=== PATIENT | male | born 1930 | race Caucasian/White ===

== ENCOUNTER 2016-05-25 09:55 | Emergency (ER) | payer MEDICARE, OTHER, MEDICAID ==
[~2016-05-25] VITALS: Ht 172.7 cm; Wt 72.6 kg
[~2016-05-25 09:55] MED LIST: AMOX-358 PO; ATOR10TA PO; ATOR10TA66 PO; CAPT25TA3; CAPT50TA3 PO; DEXT1DRO7 OU; DIGO125T PO; DILT240C9 PO; DILT240T10 PO; DOCU-143 PO; DONE5TAB30 PO; DONE5TAB8 PO; FLUT12AE2 IH; FLUT12AE2 INH; HYDR-3812 PO; LITH300T PO; LITH300T27 PO; MELA1TAB10 PO; MELA3TAB PO; MELA3TAB52 PO; NITR0.3T SL; NITR0.4T SL; POLY17PO6 PO; PROP10TA8 PO; RANI-514 PO; RANI75TA21 PO; TRAZ150T72 PO; WARF-47 PO; WARF2.5T82 PO; WARF2TAB PO
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
[2016-05-25] MEDS ORDERED: ASPIRIN 81 MG CHEW (CHILDREN'S ASA) PO ONE (10:15)
[2016-05-25 10:58] LABS: BASOPHILS % (AUTO) 0 % (0-10); EOSINOPHILS # (AUTO) 0.2 10^3/uL (0.0-0.3); EOSINOPHILS % (AUTO) 2 % (0-10); LYMPHOCYTES % (AUTO) 12 % (12-44); MEAN CORPUSCULAR HEMOGLOBIN 26 PG (25-34); MEAN CORPUSCULAR HGB CONC 31 G/DL (32-36); MEAN CORPUSCULAR VOLUME 84 FL (80-99); MEAN PLATELET VOLUME 10.5 FL (7.4-10.4); MONOCYTES # (AUTO) 0.5 X 10^3 (0.0-1.0); MONOCYTES % (AUTO) 6 % (0-12); NEUTROPHILS # (AUTO) 6.8 X 10^3 (1.8-7.8); NEUTROPHILS % (AUTO) 80 % (42-75); PLATELET COUNT 224 10^3/uL (130-400); RED BLOOD COUNT 4.98 10^6/uL (4.35-5.85); RED CELL DISTRIBUTION WIDTH 16.5 % (10.0-14.5); WHITE BLOOD COUNT 8.6 10^3/uL (4.3-11.0)
--- NOTE | 2016-05-25 11:09 | ED Chest Pain ---
General Chief Complaint: Chest Pain Stated Complaint: CHEST PAIN Nursing Triage Note: PT ARRIVED PER EMS, PT SENT D/T [facility]GINA, PT CO OF L ELBOW PAIN 7/10 INTERMITTENT. PT STATES DOES HAVE COUGH, PT WAS GIVEN NITRO SL X3 BY SC. PT STATES RECENTLY HAS GOTTEN PACEMAKER Nursing Sepsis Screen: No Definite Risk Source: patient, [place] [facility] records, old records Exam Limitations: no limitations History of Present Illness Time seen by provider: 10:06 Initial Comments This 85-year-old gentleman presents to the emergency room from the [place] [facility] complaining of "angina" which he actually describes as pain in his elbow. He is concerned this pain may be referred pain from angina. He is vague about elaborating on chest pain. He reports having a pacemaker placed within the past few months and he reports having intermittent chest discomfort since then. He gives report of having numerous heart attacks in the past. Review of his chart reveals a stress test performed at this facility in November of last year showing no ischemia or infarct. He has no chest pain at this moment. He has atrial fibrillation and is on Coumadin therapy. Patient reportedly has dementia and is a questionable historian as a result. Patient also reports having "a lot of phlegm" recently. Allergies and Home Medications Allergies Coded Allergies: tetanus immune globulin (Unverified Allergy, Unknown, 04/30/16) Home Medications Atorvastatin Calcium 10 Mg Tablet 10 MG PO DAILY (Reported) Captopril 50 Mg Tablet 50 MG PO BID (Reported) Dextran 70/Hypromellose 1 Each Droperette 1 DROP OU PRN PRN PRN DRY EYES ( Reported) Digoxin 125 Mcg Tablet 125 MCG PO DAILY (Reported) HOLD DOSE IF <60 AND NOTIFY PCP Diltiazem HCl 240 Mg Cap.er.deg 480 MG PO DAILY (Reported) TAKES 2 (240MG) CAPSULES Docusate Sodium 100 Mg Capsule 100 MG PO Q12H PRN PRN CONSTIPATION (Reported) Donepezil HCl 5 Mg Tablet 5 MG PO HS (Reported) Fluticasone/Salmeterol 12 Gm Hfa.aer.ad 2 PUFF INH BID (Reported) Hydrocodone/Acetaminophen 1 Each Tablet 1 TAB PO Q6H PRN PRN PAIN (Reported) [place] Carbonate 300 Mg Tablet.er 300 MG PO BID (Reported) Melatonin/Pyridoxine 1 Each Tablet 6 MG PO HS (Reported) TAKES 2 (3MG) TABLETS Nitroglycerin 0.4 Mg Tab.subl 0.4 MG SL UD PRN PRN CHEST PAIN (Reported) Polyethylene Glycol 3350 17 Gm Powd.pack 17 GM PO DAILY PRN PRN CONSTIPATION ( Reported) Propranolol HCl 10 Mg Tablet 10 MG PO BID (Reported) Ranitidine HCl 75 Mg Tablet 75 MG PO BID (Reported) Trazodone HCl 150 Mg Tablet 150 MG PO HS (Reported) Warfarin Sodium 2.5 Mg Tablet 2.5 MG PO DAILY (Reported) Review of Systems Constitutional: no symptoms reported EENTM: No Symptoms Reported Respiratory: See HPI Cardiovascular: See HPI Gastrointestinal: No Symptoms Reported Genitourinary: No Symptoms Reported Musculoskeletal: see HPI Skin: no symptoms reported Psychiatric/Neurological: See HPI Endocrine: No Symptoms Reported Past Fljdhnq-Gakmov-Sehkyt Hx Patient Social History Alcohol Use: Denies Use Recreational Drug Use: No Smoking Status: Former Smoker Former Smoker/When Quit: May 02, 1962 Recent Foreign Travel: No Contact w/Someone Who Travel: No Recent Infectious Disease Expo: No Recent Hopitalizations: No (unknown) Physical Abuse Screen: No Sexual Abuse: No Immunizations Up To Date Tetanus Booster (TDap): Unknown Seasonal Allergies Seasonal Allergies: No Surgeries HX Surgeries: Yes (PACEMAKER) Surgeries: Bladder Surgery, Gallbladder, Orthopedic, Pacemaker Respiratory Hx Respiratory Disorders: Yes Respiratory Disorders: COPD Cardiovascular Hx Cardiac Disorders: Yes Cardiac Disorders: Atrial Fibrillation, Coronary Artery Disease, Hypertension Neurological Hx Neurological Disorders: Yes Neurological Disorders: Dementia Reproductive System Hx Reproductive Disorders: No Genitourinary Hx Genitourinary Disorders: Yes (BLADDER CA) Genitourinary Disorders: Renal Failure (CKD), UTI-Chronic Gastrointestinal Hx Gastrointestinal Disorders: Yes Gastrointestinal Disorders: Gastroesophageal Reflux Musculoskeletal Hx Musculoskeletal Disorders: No Endocrine Hx Endocrine Disorders: No HEENT HX ENT Disorders: No Cancer Hx Cancer: Yes Cancer: Bladder Psychosocial Hx Psychiatric Problems: Yes Behavioral Health Disorders: Bipolar, Depression Integumentary HX Skin/Integumentary Disorder: No Blood Transfusions Hx Blood Disorders: No Family Medical History Family Medial History: Myocardial infarction 21 MOTHER Physical Exam Vital Signs Vital Sign - Last 12Hours 05/25/16 09:55 Temp 98.9 Pulse 87 Resp 18 B/P 143/99 Pulse Ox 96 O2 Delivery Room Air Capillary Refill : Less Than 3 Seconds General Appearance: No Apparent Distress WD/WN HEENT: PERRL/EOMI Normal ENT Inspection Neck: Normal Inspection Respiratory: Chest Non Tender Lungs Clear Normal Breath Sounds No Accessory Muscle Use No Respiratory Distress Cardiovascular: Regular Rate, Rhythm No Edema No Murmur Normal Peripheral Pulses Gastrointestinal: Normal Bowel Sounds Non Tender Soft Extremity: Normal Inspection No Pedal Edema Neurologic/Psychiatric: Alert Oriented x3 No Motor/Sensory Deficits Normal Mood/Affect lease examiner II-XII Norm as Tested Skin: Normal Color Warm/Dry Progress/Results/Core Measures Results/Orders Lab Results Laboratory Tests Test 05/25/16 10:48 Range/Units Activated Partial Thromboplast Time 47 H 24-35 SEC Alanine Aminotransferase (ALT/SGPT) 6 0-55 U/L Albumin 3.9 3.2-4.5 G/DL Alkaline Phosphatase 103 40-136 U/L Anion Gap 5 5-14 MMOL/L Aspartate Amino Transf (AST/SGOT) 10 5-34 U/L BUN/Creatinine Ratio 11 Basophils # (Auto) 0.0 0.0-0.1 10^3/uL Basophils (%) (Auto) 0 0-10 % Blood Urea Nitrogen 15 7-18 MG/DL Calcium Level 9.4 8.5-10.1 MG/DL Carbon Dioxide Level 21 21-32 MMOL/L Chloride Level 110 H 98-107 MMOL/L Creatinine 1.31 H 0.60-1.30 MG/DL Digoxin Level 1.22 0.80-2.00 NG/ML Eosinophils # (Auto) 0.2 0.0-0.3 10^3/uL Eosinophils (%) (Auto) 2 0-10 % Estimat Glomerular Filtration Rate 52 Glucose Level 144 H 70-105 MG/DL Hematocrit 42 40-54 % Hemoglobin 12.9 L 13.3-17.7 G/DL INR Comment 2.4 H 0.8-1.4 Lymphocytes # (Auto) 1.0 1.0-4.0 X 10^3 Lymphocytes (%) (Auto) 12 12-44 % Magnesium Level 2.1 1.8-2.4 MG/DL Mean Corpuscular Hemoglobin 26 25-34 PG Mean Corpuscular Hemoglobin Concent 31 L 32-36 G/DL Mean Corpuscular Volume 84 80-99 FL Mean Platelet Volume 10.5 H 7.4-10.4 FL Monocytes # (Auto) 0.5 0.0-1.0 X 10^3 Monocytes (%) (Auto) 6 0-12 % Myoglobin 48.0 10.0-92.0 NG/ML Neutrophils # (Auto) 6.8 1.8-7.8 X 10^3 Neutrophils (%) (Auto) 80 H 42-75 % Platelet Count 224 130-400 10^3/uL Potassium Level 4.8 3.6-5.0 MMOL/L Prothrombin Time 25.8 H 12.2-14.7 SEC Red Blood Count 4.98 4.35-5.85 10^6/uL Red Cell Distribution Width 16.5 H 10.0-14.5 % Sodium Level 136 135-145 MMOL/L Total Bilirubin 0.5 0.1-1.0 MG/DL Total Protein 7.8 6.4-8.2 G/DL Troponin I < 0.30 <0.30 NG/ML White Blood Count 8.6 4.3-11.0 10^3/uL My Orders Orders-PRAVEENA HERNANDEZ MD Cbc With Automated Diff (05/25/16 10:08) Magnesium (05/25/16 10:08) Chest 1 View, Ap/Pa Only (05/25/16 10:08) Ekg Tracing (05/25/16 10:08) Cardiac Profile 1 (05/25/16 10:08) Comprehensive Metabolic Panel (05/25/16 10:08) Myoglobin Serum (05/25/16 10:08) Protime With Inr (05/25/16 10:08) Partial Thromboplastin Time (05/25/16 10:08) O2 (05/25/16 10:08) Monitor-Rhythm Ecg Trace Only (05/25/16 10:08) Lipid Panel (05/26/16 06:00) Aspirin Chewable Tablet (Baby Aspirin Ch (05/25/16 10:15) Saline Lock/Iv-Start (05/25/16 10:08) Digoxin (05/25/16 10:08) Medications Given in ED Current Medications Medications Dose Ordered Sig/Karina Route Start Time Stop Time Status Last Admin Dose Admin Aspirin 324 mg ONCE ONCE PO 05/25/16 10:15 05/25/16 10:16 DC 05/25/16 10:28 324 MG Vital Signs/I&O Vital Sign - Last 12Hours 05/25/16 05/25/16 05/25/1617 09:55 09:55 10:00 12:04 Temp 98.9 Pulse 87 59 Resp 18 18 B/P 143/99 Pulse Ox 96 94 O2 Delivery Room Air Room Air Room Air Blood Pressure Mean: 114 Progress Note : Time: 11:56 Progress Note Patient's workup was unremarkable. Chest pain is intermittent and subacute. He had a negative stress test within the past year. He was instructed to follow -up with his bale stacker for further evaluation. ECG Initial ECG Impression Date: May 25, 2016 Initial ECG Impression Time: 10:02 Initial ECG Rate: 84 Comment Ventricular paced complexes. No acute ST elevation or depression. No acute change from prior. Diagnostic Imaging Diagonstic Imaging: Xray Plain Films/CT/US/NM/MRI: chest Comments Chest x-ray viewed by me and report reviewed. See report below: NAME: GIAN LOJA [facility] REC#: [id number] PT STATUS: REG ER : 1932 PHYSICIAN: PRAVEENA HERNANDEZ MD ADMIT DATE: 05/24/16/ER Signed Date of Exam: 05/24/16 CHEST 1 VIEW, AP/PA ONLY INDICATION: Left-sided weakness. Portable chest 9:29 AM. There are postop changes from a median sternotomy. There is calcified granuloma in the right midlung. Heart size and pulmonary vascularity are normal. Lungs are clear. There are no effusions or pneumothoraces. IMPRESSION: Postsurgical changes in the chest. There are no acute abnormalities seen. Dictated by: Dictated on workstation # [id number] Dict: 05/24/16 0930 Trans: 05/24/16 1124 AMARIS [id number] Interpreted by: JESSICA WINCHESTER Electronically signed by:JESSICA WINCHESTER 05/24/16 1126 Departure Impression Impression: Primary Impression: Chest pain Qualified Code: R07.9 - Chest pain, unspecified Additional Impression: Left elbow pain Disposition: 01 HOME, SELF-CARE Condition: Improved Departure-Patient Inst. Decision time for Depature: 11:56 Referrals: EUGENE KENNEDY DO (PCP/Family) Primary Care Physician Patient Instructions: Chest Pain (DC) Add. Discharge Instructions: Continue with medications as prescribed. Follow-up with your bale stacker within the next week. Return to emergency room if symptoms worsen. All discharge instructions reviewed with patient and/or family. Voiced understanding. PRAVEENA HERNANDEZ MD May 25, 2016 11:09
[2016-05-25 11:10] LABS: INR 2.4 (0.8-1.4); PROTHROMBIN TIME PATIENT 25.8 SEC (12.2-14.7)
[2016-05-25 11:19] LABS: ALANINE AMINOTRANSFERASE 6 U/L (0-55); ALBUMIN 3.9 G/DL (3.2-4.5); ANION GAP 5 MMOL/L (5-14); ASPARTATE AMINO TRANSFERASE 10 U/L (5-34); BILIRUBIN,TOTAL 0.5 MG/DL (0.1-1.0); BLOOD UREA NITROGEN 15 MG/DL (7-18); BUN/CREATININE RATIO 11; CALCIUM 9.4 MG/DL (8.5-10.1); CARBON DIOXIDE 21 MMOL/L (21-32); CHLORIDE 110 MMOL/L (98-107); CREATININE SERUM 1.31 MG/DL (0.60-1.30); GFR ESTIMATED 52; GLUCOSE 144 MG/DL (70-105); MAGNESIUM 2.1 MG/DL (1.8-2.4); POTASSIUM 4.8 MMOL/L (3.6-5.0); SODIUM 136 MMOL/L (135-145); TOTAL PROTEIN 7.8 G/DL (6.4-8.2)
--- NOTE | 2016-05-25 11:40 | Diagnostic Imaging Report ---
Portable erect AP chest at 1037 hours. INDICATION: Chest pain. FINDINGS: The heart size is within normal limits and stable when compared to 04/30/16. The left-sided pacemaker seen previously is again evident and no different. The atelectasis/infiltrate in the left lung base seen on the prior study has resolved. There are chronic pulmonary changes evident but there is no sign of failure, pneumonia or pleural effusion to suggest an acute abnormality. The mediastinum is somewhat prominent but unchanged when compared to the prior chest exam of 08/30/15. The osseous structures are intact. IMPRESSION: The appearance of the chest has improved since the prior exam as the left lung base is better aerated. There is no evidence for an acute cardiopulmonary abnormality at this time. Dictated by: Dictated on workstation # [id number]
[2016-05-25 12:04] VITALS: BP 125/86
== END 2016-05-25 12:17 ==
LOC: EDUNIT# 10:05 → ER 10:06
DX: R07.9 Chest pain, unspecified (principal); I25.10 Atherosclerotic heart disease of native coronary artery without angina pectoris; I10 Essential (primary) hypertension; F03.90 Unspecified dementia, unspecified severity, without behavioral disturbance, psychotic disturbance, mood disturbance, and anxiety; I48.2 Chronic atrial fibrillation; I25.2 Old myocardial infarction; Z79.899 Other long term (current) drug therapy; Z95.0 Presence of cardiac pacemaker; Z79.01 Long term (current) use of anticoagulants
CPT/HCPCS: 36415; 71010; 80053; 80162; 83735; 83874; 84484; 85025; 85610; 85730; 93005; 93041

== ENCOUNTER → 2016-06-09 | Outpatient (CLI) | payer MEDICARE, OTHER, MEDICAID ==
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
--- NOTE | 2016-06-10 09:15 | ECHOCARDIOGRAPHY REPORT ---
PROCEDURE PHYSICIAN: AB GARCIA DATE OF PROCEDURE: 06/09/2016 TWO DIMENSIONAL ECHOCARDIOGRAM REPORT PRIMARY PHYSICIAN: OTHER PHYSICIAN: REFERRING PHYSICIAN: Dr. Jono Price, Dr. Jono Hubbard ORDERING PHYSICIAN: INDICATION FOR THE PROCEDURE: Chest pain. MEASUREMENTS DERIVED VALUES LV DIAMETER (LAX) NORMALS NORMALS Diastolic 4.4 (3.6-5.2) Eject. Fract. 60% (60%+/-6%) Systolic (2.3-3.9) Diastolic Vol. % Shortening (0.22-0.42) Systolic Vol. Aortic Root IVS THICKNESS Diastolic 1.4 (0.6-1.1) LVPW THICKNESS Diastolic 1.3 (0.6-1.1) LA DIAMETER Systolic 4.5 (2.1-3.7) FINDINGS: 1. Technical quality is good. 2. The left ventricle is normal in size with moderate left ventricular hypertrophy noted diffusely. Systolic function appeared to be normal. Estimated ejection fraction 60%. Diastolic dysfunction is suggested by Doppler. 3. The left atrium is dilated. No clot or thrombus were seen within the left atrium. 4. The right atrium prominent. The right ventricle is normal in size. No clot or thrombus were seen within the right heart chambers. 5. Mitral valve is calcified with mild mitral regurgitation noted by color Doppler flow. No mitral valve prolapse. No mitral valve stenosis. 6. Aortic valve is trileaflet. No significant aortic valve stenosis or regurgitation was seen. 7. Tricuspid valve is normal in morphology with mild tricuspid regurgitation noted by color Doppler flow. Doppler across the tricuspid valve estimated pulmonary artery pressure of 23+ right atrial pressure. 8. Pulmonic valve is functioning normally. 9. No pericardial effusion. IN CONCLUSION: 1. Moderate left ventricular hypertrophy noted diffusely with normal systolic function. Estimated ejection fraction 60%. Diastolic dysfunction is suggested by Doppler. 2. Left atrial dilatation. 3. Prominent right heart chambers. 4. Mild mitral and tricuspid regurgitation. 5. Aortic valve sclerosis. No aortic stenosis. 6. Estimated pulmonary artery pressure of 30 mmHg. Job ID: [id number] Dictated Date: 06/09/2016 16:57:01 Computer Systems Integrator Date: 06/10/2016 09:11:32 / tbk
== END ==
LOC: CARD 11:58
PROVIDERS: ATTEND Internal Medicine Cardiovascular Disease
DX: R07.9 Chest pain, unspecified (principal); G30.1 Alzheimer's disease with late onset; F02.80 Dementia in other diseases classified elsewhere, unspecified severity, without behavioral disturbance, psychotic disturbance, mood disturbance, and anxiety; Z95.0 Presence of cardiac pacemaker
CPT/HCPCS: 93306

== ENCOUNTER → 2016-06-30 | Outpatient (CLI) | payer MEDICARE, OTHER, MEDICAID ==
[~2016-06-30] MED LIST changes: +CATHETER FLUSH 10 ML SYR IV PRN; +REGADENOSON 0.4 MG/5 ML SYR (LEXISCAN) IV ONE
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
[2016-06-30 09:21] VITALS: BP 175/97
[2016-06-30 09:24] VITALS: BP 174/69
[2016-06-30 09:26] VITALS: BP 170/81
--- NOTE | 2016-07-01 07:30 | STRESS TEST ---
PROCEDURE PHYSICIAN: AB GARCIA DATE OF PROCEDURE: 06/30/2016 LEXISCAN MYOVIEW STRESS TEST REPORT REFERRING PHYSICIAN: Dr. Jono Price. OTHER PHYSICIAN: Dr. Jono Hubbard. BASELINE HEART RATE: 74 BASELINE BLOOD PRESSURE: 175/97. BASELINE EKG: Sinus rhythm with right bundle branch block. SUMMARY: The patient was injected with 10.86 mCi of technetium 99 Myoview and the resting images were obtained. Then the patient received 0.4 mg of Lexiscan followed by 29.3 mCi of technetium 99 Myoview. Throughout the test, there were no EKG changes. The resting and stress images were reviewed and compared in the short axis, horizontal long axis, and vertical long axis views. Review of the images showed fixed defect at the mid to apical inferior wall. SSS is 4, SDS 0, TID value 1.06. On the gated images, the left ventricle appeared to be normal size with hypokinesia at the inferoapical segment and inferolateral wall. Calculated ejection fraction 52%. CONCLUSION: 1. The patient tolerated Lexiscan well. 2. Baseline right bundle branch block alternating with incomplete right bundle branch block. 3. Fixed defect at the mid to apical inferior wall, with no significant ischemia. 4. Normal left ventricular size with mild hypokinesia at the anteroapical segment and inferolateral wall. Calculated ejection fraction 52%. Job ID: [id number] Dictated Date: 06/30/2016 17:49:28 Conductor/Engineer Date: 07/01/2016 07:25:16 / forrest
== END ==
LOC: CARD 07:53
PROVIDERS: ATTEND Internal Medicine Cardiovascular Disease
DX: R07.9 Chest pain, unspecified (principal); G30.1 Alzheimer's disease with late onset; F02.80 Dementia in other diseases classified elsewhere, unspecified severity, without behavioral disturbance, psychotic disturbance, mood disturbance, and anxiety; Z95.0 Presence of cardiac pacemaker
CPT/HCPCS: 78452; 93017

== ENCOUNTER → 2016-08-20 | Outpatient (CLI) | payer MEDICARE, OTHER, MEDICAID ==
[~2016-08-20] MED LIST changes: -CATHETER FLUSH 10 ML SYR IV PRN; -REGADENOSON 0.4 MG/5 ML SYR (LEXISCAN) IV ONE
--- NOTE | 2016-08-20 10:26 | Diagnostic Imaging Report ---
PROCEDURE: CT cervical spine without contrast. TECHNIQUE: Multiple contiguous axial images were obtained through the cervical spine without the use of intravenous contrast. Sagittal and coronal reformations were then performed. INDICATION: Neck pain. COMPARISON: None. FINDINGS: Moderate left apex cervical thoracic curvature centered at C6. Moderate anterolisthesis of C4 on C5 and mild anterolisthesis of C5 on C6 and C6 on C7. Alignment is otherwise unremarkable. Vertebral body heights are maintained. No acute fractures. Advanced degenerative endplate changes are most marked at C5-C7. Diffuse advanced facet arthropathy including fusion of the facets at C4-C5. No evidence of high-grade spinal canal narrowing on this noncontrast exam. The cervical thoracic curvature, facet arthropathy and uncovertebral joint hypertrophy all contribute to advanced neural foraminal narrowing bilaterally at C3-C4, on the right at C5-C6 and on the left at C4-C5 and C7-T1. There is moderate neural foraminal narrowing bilaterally at T1-T2, on the right at C2-C3, C4-C5, C7-T1 and on left at C5-C6. Scattered arterial calcifications including the carotid bifurcations. There is retropharyngeal course of both carotid arteries. Several low-attenuation nodules in the thyroid gland measuring up to 1.9 cm. IMPRESSION: 1. Spondylotic changes, including a moderate cervical thoracic curvature centered at C6, results in multilevel moderate and advanced neural foraminal narrowing detailed above. 2. No acute CT findings in the cervical spine. No evidence of high-grade spinal canal narrowing on this noncontrast exam. 3. Several low-attenuation nodules in the thyroid gland measuring up to 1.9 cm. These could be better evaluated with thyroid ultrasound. Dictated by: Dictated on workstation # [id number]
== END ==
LOC: RAD 09:03
PROVIDERS: ATTEND Family Medicine
DX: M54.2 Cervicalgia (principal); M47.812 Spondylosis without myelopathy or radiculopathy, cervical region
CPT/HCPCS: 72125

== ENCOUNTER → 2016-09-01 | Outpatient (CLI) | payer MEDICARE, OTHER, MEDICAID ==
--- NOTE | 2016-09-01 15:49 | Diagnostic Imaging Report ---
PROCEDURE: US Thyroid. TECHNIQUE: Multiple real-time grayscale images were obtained of the thyroid in various projections. INDICATION: Thyroid nodule noted on CT. FINDINGS: The right thyroid lobe is enlarged at 6.3 x 2.3 x 2.4 cm. The left lobe is prominent at 5.5 x 3.1 x 2.3 cm. In the upper pole of the right thyroid lobe there is a 1.1 cm long axis circumscribed well-defined nodule predominantly anechoic with some internal curvilinear echogenic foci which may be calcification. Within the lower pole of the right thyroid lobe there is a 1.7 x 2.1 cm nodule hypoechoic. Its borders are predominately well visualized, however, posteriorly less well seen. It is hypoechoic but heterogeneous in its echotexture. It shows no obvious calcification. There is a dominant mass in the lower pole of the left thyroid lobe measuring 3.0 x 2.6 x 3.6 cm. It has both solid and cystic components. Its anterior borders are well defined; however in its bhy-lg-nhphqgzug aspect, the borders could not be adequately characterized. Given the absence of priors to confirm long-term stability, either short-term follow-up in six months versus consideration for needle sampling of this dominant mass suggested. IMPRESSION: Dominant 3.6 cm long axis mixed cystic and solid left lobe thyroid mass. Portions of its borders obscured. No obvious calcification. Follow-up versus lesional sampling with sonographic guidance recommended. Dictated by: Dictated on workstation # [id number]
== END ==
LOC: RAD 12:11
PROVIDERS: ATTEND Family Medicine
DX: E04.1 Nontoxic single thyroid nodule (principal)
CPT/HCPCS: 76536

== ENCOUNTER → 2016-09-08 | Outpatient (CLI) | payer MEDICARE, OTHER, MEDICAID ==
[2016-09-08 13:38] LABS: PROTHROMBIN TIME PATIENT 22.6 SEC (12.2-14.7)
== END ==
LOC: RAD 12:59
PROVIDERS: ATTEND Family Medicine
DX: E04.9 Nontoxic goiter, unspecified (principal); I48.91 Unspecified atrial fibrillation
CPT/HCPCS: 36415; 85610

== ENCOUNTER → 2016-09-10 | Outpatient (CLI) | payer MEDICARE, OTHER, MEDICAID ==
[~2016-09-10] VITALS: Ht 172.7 cm; Wt 72.6 kg
[~2016-09-10] MED LIST changes: +LIDOCAINE 1% INJ 20 ML (XYLOCAINE) VIAL INJ ONE; +LIDOCAINE 1% INJ 20 ML (XYLOCAINE) VIAL ONE
[2016-09-10 09:12] LABS: INR 1.3 (0.8-1.4); PROTHROMBIN TIME PATIENT 15.4 SEC (12.2-14.7)
[2016-09-10 09:25] VITALS: BP 120/80
[2016-09-10 10:00] VITALS: BP 128/74
--- NOTE | 2016-09-10 11:29 | Diagnostic Imaging Report ---
EXAMINATION: US-guided core biopsy-thyroid. INDICATION: Left thyroid mass. Current history and physical and other medical records are reviewed prior to the procedure. CONSENT: Informed consent was obtained from the patient. The risks, benefits, potential complications and alternatives were reviewed and all questions answered to the patient's satisfaction. The patient's vital signs, cardiac rhythm, and pulse oximetry with observed throughout the procedure by qualified nursing personnel. Sedation/medications: none. FINDINGS: There is a dominant complex inferior left thyroid mass. PROCEDURE: After maximal sterile barrier technique preparation and draping, 1% lidocaine was utilized for local anesthesia. With the patient in supine position, and via anterior approach, a 19-gauge guide needle is introduced into the inferior left thyroid mass under live ultrasound guidance. After confirming adequate positioning with saved ultrasound images, multiple 20 gauge core biopsy specimens were obtained. The patient tolerated the procedure well with no immediate complications. IMPRESSION: Successful US-guided core biopsy of inferior left thyroid mass. Dictated by: Dictated on workstation # [id number]
== END ==
LOC: RAD 08:29
PROVIDERS: ATTEND Family Medicine
DX: E04.1 Nontoxic single thyroid nodule (principal)
CPT/HCPCS: 36415; 76942; 85610

== ENCOUNTER → 2016-09-20 | Outpatient (CLI) | payer MEDICARE, OTHER, MEDICAID ==
[~2016-09-20] MED LIST changes: -LIDOCAINE 1% INJ 20 ML (XYLOCAINE) VIAL INJ ONE; -LIDOCAINE 1% INJ 20 ML (XYLOCAINE) VIAL ONE
--- NOTE | 2016-09-20 10:53 | Diagnostic Imaging Report ---
INDICATION: Abdominal pain with cough PA and lateral views of the chest obtained with comparison made to study of 04/30/2016. Heart size and pulmonary vascularity are within normal limits. Dual-chamber cardiac pacemaker remains in stable position. There is slight dependent atelectasis and/or scarring in both lungs. Rounded density projected over the right costophrenic sulcus appears to be related to the anterior aspect of rib. There is no evidence of consolidation, unchanged from previous exam. IMPRESSION: Linear atelectasis or scarring in lung bases without acute abnormality or adverse change. Dictated by: Dictated on workstation # [id number]
== END ==
LOC: RAD 10:19
PROVIDERS: ATTEND Family Medicine
DX: R76.11 Nonspecific reaction to tuberculin skin test without active tuberculosis (principal); J98.4 Other disorders of lung; J98.11 Atelectasis
CPT/HCPCS: 71020

== ENCOUNTER → 2016-10-07 | Outpatient (CLI) | payer MEDICARE, OTHER, MEDICAID | LOC: PREOP 06:15 | PROVIDERS: ATTEND Surgery | DX: Z01.818 Encounter for other preprocedural examination (principal) ==

== ENCOUNTER 2016-10-11 09:58 | Day surgery (SDC) | payer MEDICARE, OTHER, MEDICAID ==
[~2016-10-11] VITALS: Ht 172.7 cm; Wt 72.6 kg
[2016-10-11] MEDS ORDERED: NS IV 500 ML 500 ML IV PRN (10:15)
[2016-10-11] MEDS ORDERED: FLUMAZENIL (ROMAZICON) 0.1 MG/ML 5 ML VIAL INJ PRN (10:15)
[2016-10-11] MEDS ORDERED: NALOXONE 0.4 MG/ML 1 ML (NARCAN) VIAL IVP PRN (10:15)
[2016-10-11 10:40] VITALS: BP 185/98
[2016-10-11] MEDS ORDERED: SERT25TA PO (10:53)
[2016-10-11] MEDS ORDERED: RANO500T3 PO (10:53)
[2016-10-11] MEDS ORDERED: OMEP20TA33 PO (10:53)
[2016-10-11] MEDS ORDERED: BUSP15TA60 PO (10:53)
[2016-10-11] MEDS ORDERED: ONDA4TAB8 PO (10:53)
[2016-10-11] MEDS ORDERED: fentaNYL INJECTION 100 MCG/2 ML AMP ONE ×2 (11:13)
[2016-10-11] MEDS ORDERED: MIDAZOLAM 2 MG/2 ML (VERSED) VIAL ONE ×4 (11:13)
[2016-10-11] MEDS: fentaNYL INJECTION 100 MCG/2 ML AMP IVP PRN ×2 (11:23→11:26)
[2016-10-11] MEDS: MIDAZOLAM 2 MG/2 ML (VERSED) VIAL IVP PRN ×2 (11:24→11:49)
--- NOTE | 2016-10-11 12:11 | Conscious Sedation/ASA ---
Conscious Sedation Pre-Proced Time Reviewed: 10:50 ASA Class: 2 Airway Mallampati Classification: (jena appropriate class) I. II. III, IV Lungs Heart ASA score ASA 1: a normal healthy patient ASA 2: a patient with a mild systemic disease (mid diabetes, controlled hypertension, obesity ASA 3: a patient with a severe systemic disease that limits activity (angina , COPD, prior Myocardial infarction) ASA 4: a patient with an incapacitating disease that is a constant threat to life (CHF, renal failure) ASA 5: a moribund patient not expected to survive 24 hrs. (ruptured aneurysm) ASA 6: a declared brain patient whose organs are being harvested. For emergent operations, add the letter E after the classification Grade 2 Sedation Plan: Discussed options with patient/fam Note The patient is an appropriate candidate to undergo the planned procedure, sedation, and anesthesia. The patient immediately re-assessed prior to indication. JASWINDER CRAWFORD MD Oct 11, 2016 12:11 pm
--- NOTE | 2016-10-11 12:13 | Endoscopy Procedure Report ---
Endoscopy Report Date: Oct 11, 2016 Preoperative Diagnosis: personal history of polyps Study Performed: Colonoscopy Procedure Instrument: Colonoscope Endo Procedure/Findings Findings 1.: Polyp, Diverticulosis Recommendations: Recommendations: 1.: Colonoscopy in 1 year JASWINDER CRAWFORD MD Oct 11, 2016 12:13 pm
--- NOTE | 2016-10-11 12:16 | Discharge Inst-Simple/Standard ---
Discharge Inst-Standard Discharge Medications New, Converted or Re-Newed RX: RX on Chart Patient Instructions/Follow Up Plan of Care/Instructions/FU: Repeat colonoscopy in 1 year Activity as Tolerated: Yes Discharge Diet: No Restrictions JASWINDER CRAWFORD MD Oct 11, 2016 12:16 pm
[2016-10-11 12:25] VITALS: BP 133/73
--- NOTE | 2016-10-11 12:37 | OPERATIVE REPORT ---
DATE OF SERVICE: 10/11/2016 PROCEDURES: 1. Colonoscopy. 2. Hot biopsy polypectomy x 3. 3. Snare polypectomy x 1. SURGEON: Jaswinder Crawford MD. INDICATION FOR PROCEDURE: This gentleman came in for surveillance colonoscopy. In 2016, he was found to have multiple polyps with a combination tubular and tubulovillous histology pattern. Informed consent was obtained after reviewing the procedure in detail. DESCRIPTION OF PROCEDURE: He was placed in left lateral decubitus position and his vital signs were monitored. Conscious sedation was achieved using Versed and fentanyl. Digital rectal examination was unremarkable. The colonoscope was then introduced into the rectum and advanced all the way up to the cecum. The scope was then withdrawn slowly and the mucosa examined in a systematic fashion. The quality of bowel preparation was rather suboptimal. FINDINGS: 1. Sigmoid diverticula. 2. A 3 mm polyp at the proximal descending colon that was snared. Due to admixture with liquid stools, it could not be retrieved. 3. A total of 3 polyps, at 2 mm each, adjacent to each other at the distal transverse colon. These were excised with hot biopsy forceps. He tolerated the procedure well and was taken back to the nursing area in stable condition. IMPRESSION: Previous polyps. Recurrent polyps excised. Recommend repeating in 1 year. Job ID: [id number] DocumentID: [id number] Dictated Date: 10/11/2016 12:11:14 Division Merchandise Manager Date: 10/11/2016 12:35:50 Dictated By: JASWINDER CRAWFORD MD MTDD
[2016-10-11 12:55] VITALS: BP 140/93
[2016-10-11 13:10] VITALS: BP 140/93
== END 2016-10-11 13:10 | disposition home or self-care (01) ==
LOC: ENDO 09:58
PROVIDERS: ATTEND Surgery
DX: K63.5 Polyp of colon (principal); K57.30 Diverticulosis of large intestine without perforation or abscess without bleeding; I48.91 Unspecified atrial fibrillation; I12.9 Hypertensive chronic kidney disease with stage 1 through stage 4 chronic kidney disease, or unspecified chronic kidney disease; N18.9 Chronic kidney disease, unspecified; F41.9 Anxiety disorder, unspecified; K21.9 Gastro-esophageal reflux disease without esophagitis; F31.9 Bipolar disorder, unspecified

== ENCOUNTER 2017-07-18 06:53 | Inpatient (IN) | payer MEDICARE, OTHER, MEDICAID ==
[~2017-07-18] VITALS: Ht 175.3 cm; Wt 74.4 kg
[~2017-07-18 06:53] MED LIST changes: +ACHD5005 PO; +BUSP15TA60 PO; -HYDR-3812 PO; +OMEP20TA33 PO; +ONDA4TAB8 PO; +RANO500T3 PO; +SERT25TA PO
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
--- OUTSIDE RECORDS SUMMARY | 2017-07-18 07:02 | XMS REPORT | Continuity of Care Document ---
Author Author [facility] Organization [facility] Address Unknown Phone Unavailable Allergies Active Description Code Type Severity Reaction Onset Reported/Identified Relationship to Patient Clinical Status Yes tetanus immune globulin [id number] Drug Allergy Unknown N/A 04/30/2016 Medications There is no data. Problems Date Dx Coded Attending Type Code Diagnosis Diagnosed By 04/03/2015 MARCIA GLEASON EUGENE A Ot N28.9 04/03/2015 GELLENDER DO, EUGENE A Ot R10.32 04/30/2015 GELLENDER DO, EUGENE A Ot N28.9 04/30/2015 GELLENDER DO, EUGENE A Ot R10.32 05/15/2015 GELLENDER DO, EUGENE A Ot N28.9 05/15/2015 GELLENDER DO, EUGENE A Ot R10.32 05/15/2015 GELLENDER DO, EUGENE A Ot N28.9 05/15/2015 GELLENDER DO, EUGENE A Ot R10.32 08/30/2015 GELLENDER DO, EUGENE A Ot N28.9 DISORDER OF KIDNEY AND URETER, UNSPECIFI 08/30/2015 GELLENDER DO, EUGENE A Ot R10.32 LEFT LOWER QUADRANT PAIN 08/30/2015 ARABELLA HYDE MD Ot I20.9 ANGINA PECTORIS, UNSPECIFIED 08/30/2015 ARABELLA HYDE MD Ot Z87.891 PERSONAL HISTORY OF NICOTINE DEPENDENCE 08/30/2015 ARABELLA HYDE MD Ot Z95.0 PRESENCE OF CARDIAC PACEMAKER 09/01/2015 ARABELLA HYDE MD Ot I20.9 ANGINA PECTORIS, UNSPECIFIED 09/01/2015 ARABELLA HYDE MD Ot Z87.891 PERSONAL HISTORY OF NICOTINE DEPENDENCE 09/01/2015 ARABELLA HYDE MD Ot Z95.0 PRESENCE OF CARDIAC PACEMAKER 12/11/2015 AB GARCIA MD Ot E78.5 HYPERLIPIDEMIA, UNSPECIFIED 12/11/2015 AB GARCIA MD Ot I10 ESSENTIAL (PRIMARY) HYPERTENSION 12/11/2015 AB GARCIA MD Ot 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 12/11/2015 AB GARCIA MD Ot I48.91 UNSPECIFIED ATRIAL FIBRILLATION 12/11/2015 AB GARCIA MD Ot R07.9 CHEST PAIN, UNSPECIFIED 12/15/2015 AB GARCIA MD Ot E78.5 HYPERLIPIDEMIA, UNSPECIFIED 12/15/2015 AB GARCIA MD Ot I10 ESSENTIAL (PRIMARY) HYPERTENSION 12/15/2015 AB GARCIA MD Ot 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 12/15/2015 AB GARCIA MD Ot I48.91 UNSPECIFIED ATRIAL FIBRILLATION 12/15/2015 AB GARCIA MD Ot R07.9 CHEST PAIN, UNSPECIFIED 12/15/2015 EUGENE KENNEDY DO Ot N28.9 DISORDER OF KIDNEY AND URETER, UNSPECIFI 12/15/2015 EUGENE KENNEDY DO Ot R10.32 LEFT LOWER QUADRANT PAIN 12/15/2015 AB GARCIA MD Ot E78.5 HYPERLIPIDEMIA, UNSPECIFIED 12/15/2015 AB GARCIA MD Ot I10 ESSENTIAL (PRIMARY) HYPERTENSION 12/15/2015 AB GARCIA MD Ot 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 12/15/2015 AB GARCIA MD Ot I48.91 UNSPECIFIED ATRIAL FIBRILLATION 12/15/2015 AB GARCIA MD Ot R07.9 CHEST PAIN, UNSPECIFIED 12/16/2015 AB GARCIA MD Ot E78.5 HYPERLIPIDEMIA, UNSPECIFIED 12/16/2015 AB GARCIA MD Ot I10 ESSENTIAL (PRIMARY) HYPERTENSION 12/16/2015 AB GARCIA MD Ot 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 12/16/2015 AB GARCIA MD Ot I48.91 UNSPECIFIED ATRIAL FIBRILLATION 12/16/2015 AB GARCIA MD Ot R07.9 CHEST PAIN, UNSPECIFIED 01/01/2016 AB GARCIA MD Ot E78.5 HYPERLIPIDEMIA, UNSPECIFIED 01/01/2016 AB GARCIA MD Ot I10 ESSENTIAL (PRIMARY) HYPERTENSION 01/01/2016 AB GARCIA MD Ot 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 01/01/2016 AB GARCIA MD Ot I48.91 UNSPECIFIED ATRIAL FIBRILLATION 01/01/2016 AB GARCIA MD Ot R07.9 CHEST PAIN, UNSPECIFIED 01/02/2016 GELLENDER DO, EUGENE A Ot N28.9 DISORDER OF KIDNEY AND URETER, UNSPECIFI 01/02/2016 GELLENDER DO, EUGENE A Ot R10.32 LEFT LOWER QUADRANT PAIN 01/02/2016 AB GARCIA MD Ot E78.5 HYPERLIPIDEMIA, UNSPECIFIED 01/02/2016 AB GARCIA MD Ot I10 ESSENTIAL (PRIMARY) HYPERTENSION 01/02/2016 AB GARCIA MD Ot 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 01/02/2016 AB GARCIA MD Ot I48.91 UNSPECIFIED ATRIAL FIBRILLATION 01/02/2016 AB GARCIA MD Ot R07.9 CHEST PAIN, UNSPECIFIED 01/02/2016 GELLENDER DO, EUGENE A Ot N28.9 DISORDER OF KIDNEY AND URETER, UNSPECIFI 01/02/2016 GELLENDER DO, EUGENE Barnhart Ot R10.32 LEFT LOWER QUADRANT PAIN 01/02/2016 AB GARCIA MD Ot E78.5 HYPERLIPIDEMIA, UNSPECIFIED 01/02/2016 AB GARCIA MD Ot I10 ESSENTIAL (PRIMARY) HYPERTENSION 01/02/2016 AB GARCIA MD Ot 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 01/02/2016 AB GARCIA MD Ot I48.91 UNSPECIFIED ATRIAL FIBRILLATION 01/02/2016 AB GARCIA MD Ot R07.9 CHEST PAIN, UNSPECIFIED 01/06/2016 JASWINDER CRAWFORD MD Ot K40.90 UNIL INGUINAL HERNIA, W/O OBST OR GANGR, 01/06/2016 JASWINDER CRAWFORD MD Ot Z01.818 ENCOUNTER FOR OTHER PREPROCEDURAL EXAMIN 01/06/2016 JASWINDER CRAWFORD MD Ot K40.90 UNIL INGUINAL HERNIA, W/O OBST OR GANGR, 01/06/2016 JASWINDER CRAWFORD MD Ot Z01.818 ENCOUNTER FOR OTHER PREPROCEDURAL EXAMIN 01/06/2016 JASWINDER CRAWFORD MD Ot K40.90 UNIL INGUINAL HERNIA, W/O OBST OR GANGR, 01/06/2016 JASWINDER CRAWFORD MD Ot Z01.818 ENCOUNTER FOR OTHER PREPROCEDURAL EXAMIN 01/07/2016 JASWINDER CRAWFORD MD Ot K40.90 UNIL INGUINAL HERNIA, W/O OBST OR GANGR, 01/07/2016 JASWINDER CRAWFORD MD Ot Z01.818 ENCOUNTER FOR OTHER PREPROCEDURAL EXAMIN 01/08/2016 JASWINDER CRAWFORD MD Ot E78.5 HYPERLIPIDEMIA, UNSPECIFIED 01/08/2016 JASWINDER CRAWFORD MD Ot I10 ESSENTIAL (PRIMARY) HYPERTENSION 01/08/2016 JASWINDER CRAWFORD MD Ot 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 01/08/2016 JASWINDER CRAWFORD MD Ot I48.91 UNSPECIFIED ATRIAL FIBRILLATION 01/08/2016 JASWINDER CRAWFORD MD Ot J44.9 CHRONIC OBSTRUCTIVE PULMONARY DISEASE, U 01/08/2016 JASWINDER CRAWFORD MD Ot K21.9 GASTRO-ESOPHAGEAL REFLUX DISEASE WITHOUT 01/08/2016 JASWINDER CRAWFORD MD Ot K40.90 UNIL INGUINAL HERNIA, W/O OBST OR GANGR, 01/08/2016 JASWNIDER CRAWFORD MD Ot Z11.2 ENCOUNTER FOR SCREENING FOR OTHER BACTER 01/08/2016 JASWINDER CRAWFORD MD Ot Z79.01 MOP WORKER (CURRENT) USE OF ANTICOAGULANT 01/08/2016 JASWINDER CRAWFORD MD Ot Z79.899 OTHER MOP WORKER (CURRENT) DRUG THERAPY 01/08/2016 JASWINDER CRAWFORD MD Ot Z87.891 PERSONAL HISTORY OF NICOTINE DEPENDENCE 01/08/2016 JASWINDER CRAWFORD MD Ot E78.5 HYPERLIPIDEMIA, UNSPECIFIED 01/08/2016 JASWINDER CRAWFORD MD Ot I10 ESSENTIAL (PRIMARY) HYPERTENSION 01/08/2016 JASWINDER CRAWFORD MD Ot 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 01/08/2016 JASWINDER CRAWFORD MD Ot I48.91 UNSPECIFIED ATRIAL FIBRILLATION 01/08/2016 JASWINDER CRAWFORD MD Ot J44.9 CHRONIC OBSTRUCTIVE PULMONARY DISEASE, U 01/08/2016 JASWINDER CRAWFORD MD Ot K21.9 GASTRO-ESOPHAGEAL REFLUX DISEASE WITHOUT 01/08/2016 JASWINDER CRAWFORD MD Ot K40.90 UNIL INGUINAL HERNIA, W/O OBST OR GANGR, 01/08/2016 JASWINDER CRAWFORD MD Ot Z11.2 ENCOUNTER FOR SCREENING FOR OTHER BACTER 01/08/2016 JASWINDER CRAWFORD MD Ot Z79.01 CARE HOME (CURRENT) USE OF ANTICOAGULANT 01/08/2016 JASWINDER CRAWFORD MD Ot Z79.899 OTHER MOP WORKER (CURRENT) DRUG THERAPY 01/08/2016 JASWINDER CRAWFORD MD Ot Z87.891 PERSONAL HISTORY OF NICOTINE DEPENDENCE 01/09/2016 JASWINDER CRAWFORD MD Ot E78.5 HYPERLIPIDEMIA, UNSPECIFIED 01/09/2016 JASWINDER CRAWFORD MD Ot I10 ESSENTIAL (PRIMARY) HYPERTENSION 01/09/2016 JASWINDER CRAWFORD MD Ot 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 01/09/2016 JASWINDER CRAWFORD MD Ot I48.91 UNSPECIFIED ATRIAL FIBRILLATION 01/09/2016 JASWINDER CRAWFORD MD Ot J44.9 CHRONIC OBSTRUCTIVE PULMONARY DISEASE, U 01/09/2016 JASWINDER CRAWFORD MD Ot K21.9 GASTRO-ESOPHAGEAL REFLUX DISEASE WITHOUT 01/09/2016 JASWINDER CRAWFORD MD Ot K40.90 UNIL INGUINAL HERNIA, W/O OBST OR GANGR, 01/09/2016 JASWINDER CRAWFORD MD Ot Z11.2 ENCOUNTER FOR SCREENING FOR OTHER BACTER 01/09/2016 JASWINDER CRAWFORD MD Ot Z79.01 MOP WORKER (CURRENT) USE OF ANTICOAGULANT 01/09/2016 JASWINDER CRAWFORD MD Ot Z79.899 OTHER MOP WORKER (CURRENT) DRUG THERAPY 01/09/2016 JASWINDER CRAWFORD MD Ot Z87.891 PERSONAL HISTORY OF NICOTINE DEPENDENCE 01/13/2016 JASWINDER CRAWFORD MD Ot K40.90 UNIL INGUINAL HERNIA, W/O OBST OR GANGR, 01/13/2016 JASWINDER CRAWFORD MD Ot Z01.818 ENCOUNTER FOR OTHER PREPROCEDURAL EXAMIN 01/19/2016 AB GARCIA MD Ot E78.5 HYPERLIPIDEMIA, UNSPECIFIED 01/19/2016 AB GARCIA MD Ot I10 ESSENTIAL (PRIMARY) HYPERTENSION 01/19/2016 AB GARCIA MD Ot 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 01/19/2016 JOSE VICENTE, AB [place] Ot I48.91 UNSPECIFIED ATRIAL FIBRILLATION 01/19/2016 JOSE VICENTE, AB [place] Ot R07.9 CHEST PAIN, UNSPECIFIED 01/28/2016 MARCIA GLEASON, EUGENE Barnhart Ot A41.9 SEPSIS, UNSPECIFIED ORGANISM 01/28/2016 MARCIA GLEASON, EUGENE Barnhart Ot B96.20 UNSP ESCHERICHIA COLI THE CAUSE OF DI 01/28/2016 MARCIA GLEASON, EUGENE Barnhart Ot D64.9 ANEMIA, UNSPECIFIED 01/28/2016 SARALENDER DO, EUGENE Barnhart Ot F03.90 UNSPECIFIED DEMENTIA WITHOUT BEHAVIORAL 01/28/2016 KARLEYDER , EUGENE Barnhart Ot F31.9 BIPOLAR DISORDER, UNSPECIFIED 01/28/2016 KARLEYDER , EUGENE Barnhrat Ot I10 ESSENTIAL (PRIMARY) HYPERTENSION 01/28/2016 MARCIA GLEASON, EUGENE Barnhart Ot 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 01/28/2016 MARCIA GLEASON, EUGENE Barnhart Ot J44.9 CHRONIC OBSTRUCTIVE PULMONARY DISEASE, U 01/28/2016 MARCIA , EUGENE Barnhart Ot K21.9 GASTRO-ESOPHAGEAL REFLUX DISEASE WITHOUT 01/28/2016 GELLENDER DO, EUGENE Barnhart Ot N28.9 DISORDER OF KIDNEY AND URETER, UNSPECIFI 01/28/2016 MARCIA GLEASONEUGENE Ot N39.0 URINARY TRACT INFECTION, SITE NOT SPECIF 01/28/2016 MARCIA GLEASONEUGENE Ot R79.1 ABNORMAL COAGULATION PROFILE 01/28/2016 MARCIA GLEASONEUGENE Ot Z23 ENCOUNTER FOR IMMUNIZATION 01/28/2016 MARCIA GLEASONEUGENE Ot Z66 DO NOT RESUSCITATE 01/28/2016 MARCIA GLEASONEUGENE Ot 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 COLI] 01/29/2016 MARCIA GLEASON, EUGENE Barnhart Ot A41.9 SEPSIS, UNSPECIFIED ORGANISM 01/29/2016 MARCIA GLEASON, EUGENE Barnhart Ot B96.20 UNSP ESCHERICHIA COLI THE CAUSE OF DI 01/29/2016 MARCIA GLEASON, EUGENE Barnhart Ot D12.0 BENIGN NEOPLASM OF CECUM 01/29/2016 GELLENDER DO, EUGENE Barnhart Ot D12.2 BENIGN NEOPLASM OF ASCENDING COLON 01/29/2016 GELLENDER DO, EUGENE Barnhart Ot D12.3 BENIGN NEOPLASM OF TRANSVERSE COLON 01/29/2016 GELLENDER DO, EUGENE Barnhart Ot D12.4 BENIGN NEOPLASM OF DESCENDING COLON 01/29/2016 GELLENDER DO, EUGENE Barnhart Ot D12.5 BENIGN NEOPLASM OF SIGMOID COLON 01/29/2016 GELLENDER DO, EUGENE Barnhart Ot D64.9 ANEMIA, UNSPECIFIED 01/29/2016 GELLENDER DO, EUGENE Barnhart Ot F03.90 UNSPECIFIED DEMENTIA WITHOUT BEHAVIORAL 01/29/2016 GELLENDER DO, EUGENE Barnhart Ot F31.9 BIPOLAR DISORDER, UNSPECIFIED 01/29/2016 GELLENDER DO, EUGENE Barnhart Ot I10 ESSENTIAL (PRIMARY) HYPERTENSION 01/29/2016DER , EUGENE Barnhart Ot 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 01/29/2016, EUGENE Barnhart Ot J44.9 CHRONIC OBSTRUCTIVE PULMONARY DISEASE, U 01/29/2016 SARADER DO, EUGENE Barnhart Ot K20.9 ESOPHAGITIS, UNSPECIFIED 01/29/2016 GELLENDER DO, EUGENE Barnhart Ot K21.9 GASTRO-ESOPHAGEAL REFLUX DISEASE WITHOUT 01/29/2016 GELLENDER DO, EUGENE Barnhart Ot K25.4 CHRONIC OR UNSPECIFIED GASTRIC ULCER WIT 01/29/2016 KARLEYDER DO, EUGENE Barnhart Ot K57.30 DVRTCLOS OF LG INT W/O PERFORATION OR AB 01/29/2016 GELDER DO, EUGENE Barnhart Ot N28.9 DISORDER OF KIDNEY AND URETER, UNSPECIFI 01/29/2016 KARLEYDER DOEUGENE Ot N39.0 URINARY TRACT INFECTION, SITE NOT SPECIF 01/29/2016 GELMINGODER DOEUGENE Ot R79.1 ABNORMAL COAGULATION PROFILE 01/29/2016 MARCIA GLEASONEUGENE Ot Z23 ENCOUNTER FOR IMMUNIZATION 01/29/2016 KARLEYDER DO, EUGENE Barnhart Ot Z66 DO NOT RESUSCITATE 01/29/2016 KARLEYDER EUGENE Ot 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 01/29/2016 GELLENDER DOEUGENE Ot Z95.0 PRESENCE OF CARDIAC PACEMAKER 04/30/2016 KARLEYDER DOEUGENE Ot N28.9 DISORDER OF KIDNEY AND URETER, UNSPECIFI 04/30/2016 GELLENDER DO, EUGENE Barnhart Ot R10.32 LEFT LOWER QUADRANT PAIN 04/30/2016 AB GARCIA MD Ot E78.5 HYPERLIPIDEMIA, UNSPECIFIED 04/30/2016 AB GARCIA MD Ot I10 ESSENTIAL (PRIMARY) HYPERTENSION 04/30/2016 AB GARCIA MD Ot 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 04/30/2016 AB GARCIA MD Ot I48.91 UNSPECIFIED ATRIAL FIBRILLATION 04/30/2016 AB GARCIA MD Ot R07.9 CHEST PAIN, UNSPECIFIED 04/30/2016 COSMO CREWS APRN Ot I10 ESSENTIAL (PRIMARY) HYPERTENSION 04/30/2016 COSMO CREWS APRN Ot J44.9 CHRONIC OBSTRUCTIVE PULMONARY DISEASE, U 04/30/2016 COSMO CREWS APRN Ot K57.32 DVTRCLI OF LG INT W/O PERFORATION OR ABS 04/30/2016 COSMO CREWS APRN Ot M47.9 SPONDYLOSIS, UNSPECIFIED 04/30/2016 COSMO CREWS STITCHER SPECIAL MACHINE Ot R10.9 UNSPECIFIED ABDOMINAL PAIN 04/30/2016 COSMO CREWS APRN Ot 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, NOT ELSEWHERE CLASSIFIED 04/30/2016 COSMO CREWS APRN Ot Z79.899 OTHER MOP WORKER (CURRENT) DRUG THERAPY 05/19/2016 COSMO CREWS APRN Ot I10 ESSENTIAL (PRIMARY) HYPERTENSION 05/19/2016 COSMO CREWS APRN Ot J44.9 CHRONIC OBSTRUCTIVE PULMONARY DISEASE, U 05/19/2016 COSMO CREWS APRN Ot K57.32 DVTRCLI OF LG INT W/O PERFORATION OR ABS 05/19/2016 COSMO CREWS STITCHER SPECIAL MACHINE Ot M47.9 SPONDYLOSIS, UNSPECIFIED 05/19/2016 COSMO CREWS STITCHER SPECIAL MACHINE Ot R10.9 UNSPECIFIED ABDOMINAL PAIN 05/19/2016 COSMO CREWS STITCHER SPECIAL MACHINE Ot 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, NOT ELSEWHERE CLASSIFIED 05/19/2016 COSMO CREWS STITCHER SPECIAL MACHINE Ot Z79.899 OTHER CARE HOME (CURRENT) DRUG THERAPY 05/25/2016 MARY VICENTE, PRAVEENA Dalal Ot F03.90 UNSPECIFIED DEMENTIA WITHOUT BEHAVIORAL 05/25/2016 MARY VICENTE, PRAVEENA Dalal Ot I10 ESSENTIAL (PRIMARY) HYPERTENSION 05/25/2016 PRAVEENA HERNANDEZ MD, Ot 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 05/25/2016 PRAVEENA HERNANDEZ MD Ot I25.2 OLD MYOCARDIAL INFARCTION 05/25/2016 PRAVEENA HERNANDEZ MD Ot I48.2 CHRONIC ATRIAL FIBRILLATION 05/25/2016 PRAVEENA HERNANDEZ MD Ot R07.9 CHEST PAIN, UNSPECIFIED 05/25/2016 PRAVEENA HERNANDEZ MD, Ot Z79.01 MOP WORKER (CURRENT) USE OF ANTICOAGULANT 05/25/2016 PRAVEENA HERNANDEZ MD, Ot Z79.899 OTHER MOP WORKER (CURRENT) DRUG THERAPY 05/25/2016 PRAVEENA HERNANDEZ MD, Ot Z95.0 PRESENCE OF CARDIAC PACEMAKER 06/09/2016 EUGENE KENNEDY DO Ot N28.9 DISORDER OF KIDNEY AND URETER, UNSPECIFI 06/09/2016 EUGENE KENNEDY DO Ot R10.32 LEFT LOWER QUADRANT PAIN 06/09/2016 AB GARCIA MD Ot E78.5 HYPERLIPIDEMIA, UNSPECIFIED 06/09/2016 AB GARCIA MD Ot I10 ESSENTIAL (PRIMARY) HYPERTENSION 06/09/2016 AB GARCIA MD Ot 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 06/09/2016 AB GARCIA MD, Ot I48.91 UNSPECIFIED ATRIAL FIBRILLATION 06/09/2016 AB GARCIA MD Ot R07.9 CHEST PAIN, UNSPECIFIED 06/17/2016 EUGENE KENNEDY DO Ot N28.9 DISORDER OF KIDNEY AND URETER, UNSPECIFI 06/17/2016 EUGENE KENNEDY DO, Ot R10.32 LEFT LOWER QUADRANT PAIN 06/17/2016 AB GARCIA MD Ot E78.5 HYPERLIPIDEMIA, UNSPECIFIED 06/17/2016 AB GARCIA MD Ot I10 ESSENTIAL (PRIMARY) HYPERTENSION 06/17/2016 AB GARCIA MD Ot 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 06/17/2016 AB GARCIA MD Ot I48.91 UNSPECIFIED ATRIAL FIBRILLATION 06/17/2016 AB GARCIA MD Ot R07.9 CHEST PAIN, UNSPECIFIED 06/17/2016 AUSTIN MD, EUGENE A Ot 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 06/17/2016 EUGENE AUSTIN MD Ot 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 06/17/2016 EUGENE AUSTIN MD Ot R07.9 CHEST PAIN, UNSPECIFIED 06/17/2016 EUGENE AUSTIN MD Ot Z95.0 PRESENCE OF CARDIAC PACEMAKER 06/30/2016 EUGENE UASTIN MD Ot R07.9 CHEST PAIN, UNSPECIFIED 07/01/2016 EUGENE AUSTIN MD Ot 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 07/01/2016 EUGENE AUSTIN MD Ot 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 07/01/2016 EUGENE AUSTIN MD Ot R07.9 CHEST PAIN, UNSPECIFIED 07/01/2016 EUGENE AUSTIN MD Ot Z95.0 PRESENCE OF CARDIAC PACEMAKER 07/02/2016 EUGENE AUSTIN MD Ot 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 07/02/2016 EUGENE AUSTIN MD Ot 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 07/02/2016 EUGENE AUSTIN MD Ot R07.9 CHEST PAIN, UNSPECIFIED 07/02/2016 EUGENE AUSTIN MD Ot Z95.0 PRESENCE OF CARDIAC PACEMAKER 07/22/2016 EUGENE AUSTIN MD Ot 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 07/22/2016 EUGENE AUSTIN MD Ot 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 07/22/2016 EUGENE AUSTIN MD Ot R07.9 CHEST PAIN, UNSPECIFIED 07/22/2016 EUGENE AUSTIN MD Ot Z95.0 PRESENCE OF CARDIAC PACEMAKER 07/28/2016 EUGENE AUSTIN MD Ot 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 07/28/2016 EUGENE AUSTIN MD Ot 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 07/28/2016 EUGENE AUSTIN MD Ot R07.9 CHEST PAIN, UNSPECIFIED 07/28/2016 EUGENE AUSTIN MD Ot Z95.0 PRESENCE OF CARDIAC PACEMAKER 08/06/2016 EUGENE AUSTIN MD Ot 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 08/06/2016 EUGENE AUSTIN MD Ot 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 08/06/2016 EUGENE AUSTIN MD A Ot R07.9 CHEST PAIN, UNSPECIFIED 08/06/2016 GEOVANNA VICENTE, EUGENE Barnhart Ot Z95.0 PRESENCE OF CARDIAC PACEMAKER 08/12/2016 GEOVANNA VICENTE, EUGENE Barnhart Ot 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 08/12/2016 EUGENE AUSTIN MD Ot 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 08/12/2016 EUGENE AUSTIN MD Ot R07.9 CHEST PAIN, UNSPECIFIED 08/12/2016 GEOVANNA VICENTE, EUGENE Barnhart Ot Z95.0 PRESENCE OF CARDIAC PACEMAKER 08/24/2016 GELLENDER DO, EUGENE Banrhart Ot M47.812 SPONDYLOSIS W/O MYELOPATHY OR RADICULOPA 08/24/2016 GELLENDER DO, EUGENE Barnhart Ot M54.2 CERVICALGIA 09/02/2016 GELLENDER DO, EUGENE Barnhart Ot E04.1 NONTOXIC SINGLE THYROID NODULE 09/08/2016 GELLENDER DO, EUGENE Barnhart Ot I48.91 UNSPECIFIED ATRIAL FIBRILLATION 09/10/2016 GELLENDER DO, EUGENE A Ot 09/10/2016 GELLENDER DO, EUGENE Barnhart Ot 09/10/2016 GELLENDER DO, EUGENE Barnhart Ot 09/10/2016 GELLENDER DO, EUGENE Barnhart Ot 09/14/2016 GELLENDER DO, EUGENE Barnhart Ot M47.812 SPONDYLOSIS W/O MYELOPATHY OR RADICULOPA 09/14/2016 GELLENDER DO, EUGENE Obey Ot M54.2 CERVICALGIA 09/22/2016 GELLENDER DO, EUGENE Obey Ot E04.1 NONTOXIC SINGLE THYROID NODULE 09/22/2016 GELLENDER DO, EUGENE A Ot E04.1 NONTOXIC SINGLE THYROID NODULE 09/30/2016 GELLENDER DO, EUGENE Obey Ot M47.812 SPONDYLOSIS W/O MYELOPATHY OR RADICULOPA 09/30/2016 GELLENDER DO, EUGENE A Ot M54.2 CERVICALGIA 10/05/2016 GELLENDER DO, EUGENE A Ot M47.812 SPONDYLOSIS W/O MYELOPATHY OR RADICULOPA 10/05/2016 GELLENDER DO, EUGENE Barnhart Ot M54.2 CERVICALGIA 10/05/2016 GELLENDER DO, EUGENE Barnhart Ot E04.1 NONTOXIC SINGLE THYROID NODULE 10/08/2016 TY VICENTE, JASWINDER [place] Ot Z01.818 ENCOUNTER FOR OTHER PREPROCEDURAL EXAMIN 10/11/2016 TY VICENTE, JASWINDER [place] Ot F31.9 BIPOLAR DISORDER, UNSPECIFIED 10/11/2016 TY VICENTE, JASWINDER [place] Ot F41.9 ANXIETY DISORDER, UNSPECIFIED 10/11/2016 TY VICENTE, JASWINDER [place] Ot I12.9 HYPERTENSIVE CHRONIC KIDNEY DISEASE W ST 10/11/2016 TY VICENTE, JASWINDER [place] Ot I48.91 UNSPECIFIED ATRIAL FIBRILLATION 10/11/2016 JASWINDER CRAWFORD MD Ot K21.9 GASTRO-ESOPHAGEAL REFLUX DISEASE WITHOUT 10/11/2016 TY VICENTE, JASWINDER [place] Ot K57.30 DVRTCLOS OF LG INT W/O PERFORATION OR AB 10/11/2016 JASWINDER CRAWFORD MD Ot K63.5 POLYP OF COLON 10/11/2016 JASWINDER CRAWFORD MD, Ot N18.9 CHRONIC KIDNEY DISEASE, UNSPECIFIED 10/11/2016 EUGENE KENNEDY DO Ot E04.9 NONTOXIC GOITER, UNSPECIFIED 10/11/2016 EUGENE KENNEDY DO Ot I48.91 UNSPECIFIED ATRIAL FIBRILLATION 10/12/2016 EUGENE KENNEDY DO Ot E04.1 NONTOXIC SINGLE THYROID NODULE 10/12/2016 TY VICENTE, JASWINDER [place] Ot F31.9 BIPOLAR DISORDER, UNSPECIFIED 10/12/2016 TY VICENTE, JASWINDER [place] Ot F41.9 ANXIETY DISORDER, UNSPECIFIED 10/12/2016 JASWINDER CRAWFORD MD Ot I12.9 HYPERTENSIVE CHRONIC KIDNEY DISEASE W ST 10/12/2016 JASWINDER CRAWFORD MD Ot I48.91 UNSPECIFIED ATRIAL FIBRILLATION 10/12/2016 JASWINDER CRAWFORD MD, Ot K21.9 GASTRO-ESOPHAGEAL REFLUX DISEASE WITHOUT 10/12/2016 JASWINDER CRAWFORD MD Ot K57.30 DVRTCLOS OF LG INT W/O PERFORATION OR AB 10/12/2016 JASWINDER CRAWFORD MD Ot K63.5 POLYP OF COLON 10/12/2016 JASWINDER CRAWFORD MD Ot N18.9 CHRONIC KIDNEY DISEASE, UNSPECIFIED 10/13/2016 EUGENE KENNEDY DO Ot J98.11 ATELECTASIS 10/13/2016 EUGENE KENNEDY DO Ot J98.4 OTHER DISORDERS OF LUNG 10/13/2016 EUGENE KENNEDY DO Ot R76.11 NONSPECIFIC REACTION TO SKIN TEST W/O AC 10/18/2016 GELLENDER DO, EUGENE Barnhart Ot E04.1 NONTOXIC SINGLE THYROID NODULE 10/18/2016 GELLENDER DO, EUGENE Barnhart Ot E04.1 NONTOXIC SINGLE THYROID NODULE 10/22/2016 GELLENDER DO, EUGENE Barnhart Ot E04.1 NONTOXIC SINGLE THYROID NODULE 10/28/2016 GELLENDER DO, EUGENE Barnhart Ot E04.9 NONTOXIC GOITER, UNSPECIFIED 10/28/2016 GELLENDER DO, EUGENE Barnhart Ot I48.91 UNSPECIFIED ATRIAL FIBRILLATION 11/03/2016 GELLENDER DO, EUGENE Barnhart Ot J98.11 ATELECTASIS 11/03/2016 GELLENDER DO, EUGENE Barnhart Ot J98.4 OTHER DISORDERS OF LUNG 11/03/2016 GELLENDER DO, EUGENE Barnhart Ot R76.11 NONSPECIFIC REACTION TO SKIN TEST W/O AC 11/12/2016 TY VICENTE, JASWINDER Marin Ot F31.9 BIPOLAR DISORDER, UNSPECIFIED 11/12/2016 TY VICENTE, JASWINDER Marin Ot F41.9 ANXIETY DISORDER, UNSPECIFIED 11/12/2016 TY VICENTE, JASWINDER Marin Ot I12.9 HYPERTENSIVE CHRONIC KIDNEY DISEASE W ST 11/12/2016 TY VICENTE, JASWINDER Marin Ot I48.91 UNSPECIFIED ATRIAL FIBRILLATION 11/12/2016 TY VICENTE, JASWINDER Marin Ot K21.9 GASTRO-ESOPHAGEAL REFLUX DISEASE WITHOUT 11/12/2016 TY VICENTE, JASWINDER Marin Ot K57.30 DVRTCLOS OF LG INT W/O PERFORATION OR AB 11/12/2016 TY VICENTE, JASWINDER Marin Ot K63.5 POLYP OF COLON 11/12/2016 TY VICENTE, JASWINDER Marin Ot N18.9 CHRONIC KIDNEY DISEASE, UNSPECIFIED Procedures Code Description Performed By Performed On [id number] EXCISION OF CECUM, ENDO, DIAGN 01/26/2016 [id number] EXCISION OF ASCENDING COLON, ENDO, DIAGN 01/26/2016 [id number] EXCISION OF TRANSVERSE COLON, ENDO, DIAG 01/26/2016 [id number] EXCISION OF DESCENDING COLON, ENDO, DIAG 01/26/2016 [id number] EXCISION OF SIGMOID COLON , ENDO, DIAGN 01/26/2016 [id number] INSPECTION OF UPPER INTESTINAL TRACT, EN 01/26/2016 Results Test Result Range Digoxin - 01/07/16 09:40 Digoxin 0.56 ng/mL 0.80-2.00 Methicillin resistant Staphylococcus aureus (MRSA) screening culture - 09:40 Methicillin resistant Staphylococcus aureus (MRSA) screening culture NEG NRG Capillary blood glucose measurement by glucometer (mass/volume) - 01/07/16 21: 08 Capillary blood glucose measurement by glucometer (mass/volume) 219 mg/dL 70-110 Complete blood count (CBC) with automated white blood cell (WBC) differential - 01/08/16 04:18 Blood leukocytes automated count (number/volume) 12.0 10*3/uL 4.3-11.0 Blood erythrocytes automated count (number/volume) 4.21 10*6/uL 4.35-5.85 Venous blood hemoglobin measurement (mass/volume) 9.6 g/dL 13.3-17.7 Blood hematocrit (volume fraction) 33 % 40-54 Automated erythrocyte mean corpuscular volume 77 [foz_us] 80-99 Automated erythrocyte mean corpuscular hemoglobin (mass per erythrocyte) 23 pg 25-34 Automated erythrocyte mean corpuscular hemoglobin concentration measurement ( mass/volume) 29 g/dL 32-36 Automated erythrocyte distribution width ratio 16.6 % 10.0-14.5 Automated blood platelet count (count/volume) 253 10*3/uL 130-400 Automated blood platelet mean volume measurement 10.7 [foz_us] 7.4-10.4 Automated blood neutrophils/100 leukocytes 90 % 42-75 Automated blood lymphocytes/100 leukocytes 6 % 12-44 Blood monocytes/100 leukocytes 4 % 0-12 Automated blood eosinophils/100 leukocytes 0 % 0-10 Automated blood basophils/100 leukocytes 0 % 0-10 Blood neutrophils automated count (number/volume) 10.8 10*3 1.8-7.8 Blood lymphocytes automated count (number/volume) 0.7 10*3 1.0-4.0 Blood monocytes automated count (number/volume) 0.5 10*3 0.0-1.0 Automated eosinophil count 0.0 10*3/uL 0.0-0.3 Automated blood basophil count (count/volume) 0.0 10*3/uL 0.0-0.1 Whole blood basic metabolic panel - 01/08/16 04:18 Serum or plasma sodium measurement (moles/volume) 139 mmol/L 135-145 Serum or plasma potassium measurement (moles/volume) 4.6 mmol/L 3.6-5.0 Serum or plasma chloride measurement (moles/volume) 114 mmol/L 98-107 Carbon dioxide 18 mmol/L 21-32 Serum or plasma anion gap determination (moles/volume) 7 mmol/L 5-14 Serum or plasma urea nitrogen measurement (mass/volume) 14 mg/dL 7-18 Serum or plasma creatinine measurement (mass/volume) 1.14 mg/dL 0.60-1.30 Serum or plasma urea nitrogen/creatinine mass ratio 12 NRG Serum or plasma creatinine measurement with calculation of estimated glomerular filtration rate > NRG Serum or plasma glucose measurement (mass/volume) 150 mg/dL 70-105 Serum or plasma calcium measurement (mass/volume) 9.4 mg/dL 8.5-10.1 Serum or plasma phosphate measurement (mass/volume) - 01/08/16 04:18 Serum or plasma phosphate measurement (mass/volume) 2.7 mg/dL 2.3-4.7 Magnesium - 01/08/16 04:18 Magnesium 2.2 mg/dL 1.8-2.4 Blood manual differential performed detection - 01/08/16 04:18 Blood monocytes/100 leukocytes 1 % NRG Manual blood segmented neutrophils/100 leukocytes 90 % NRG Blood band neutrophils/100 leukocytes 1 % NRG Manual blood lymphocytes/100 leukocytes 7 % NRG Manual eosinophils/100 leukocytes in nose 0 % NRG Manual blood basophils/100 leukocytes 1 % NRG Blood polychromasia detection by light microscopy SLIGHT NRG Blood anisocytosis detection by light microscopy MODERATE NRG Blood macrocytes detection by light microscopy SLIGHT NRG Blood ovalocytes detection by light microscopy MODERATE NRG Blood poikilocytosis detection by light microscopy SLIGHT NRG Blood hypochromia detection by light microscopy SLIGHT NRG Blood microcytes detection by light microscopy MODERATE NRG Capillary blood glucose measurement by glucometer (mass/volume) - 01/08/16 11: 29 Capillary blood glucose measurement by glucometer (mass/volume) 173 mg/dL 70-110 Complete urinalysis with reflex to culture - 01/21/16 21:10 Urine color determination YELLOW NRG Urine clarity determination SLIGHTLY CLOUDY NRG Urine pH measurement by test strip 7 5-9 Specific gravity of urine by test strip 1.005 1.016- 1.022 Urine protein assay by test strip, semi-quantitative 2+ NEGATIVE Urine glucose detection by automated test strip NEGATIVE NEGATIVE Erythrocytes detection in urine sediment by light microscopy 2+ NEGATIVE Urine ketones detection by automated test strip 1+ NEGATIVE Urine nitrite detection by test strip NEGATIVE NEGATIVE Urine total bilirubin detection by test strip NEGATIVE NEGATIVE Urine urobilinogen measurement by automated test strip (mass/volume) 1 mg/dL NORMAL Urine leukocyte esterase detection by dipstick 3+ NEGATIVE Automated urine sediment erythrocyte count by microscopy (number/high power field) [HPF] NRG Automated urine sediment leukocyte count by microscopy (number/high power field ) TNTC NRG Bacteria detection in urine sediment by light microscopy MODERATE NRG Crystals detection in urine sediment by light microscopy NONE NRG Casts detection in urine sediment by light microscopy NONE NRG Mucus detection in urine sediment by light microscopy NEGATIVE NRG Complete urinalysis with reflex to culture YES NRG Bacterial urine culture - 01/21/16 21:10 Bacterial urine culture [id number] NRG COLONY COUNT >100,000/ML NRG FTX;REPORTABLE SENSITIVITY REPORTED AT 0725, 01-23-16 NRG FREE TEXT ENTRY 2 UNUSUAL RESISTANT PATTERN DETECTED; NRG FREE TEXT ENTRY 3 ESBL IDENTIFIED. NR Bacterial susceptibility panel - 01/21/16 21:10 Gentamicin susceptibility test by minimum inhibitory concentration < = NRG Trimethoprim/sulfamethoxazole susceptibility test by minimum inhibitoryconcentration <= NRG Ampicillin susceptibility test by minimum inhibitory concentration > = NRG Tobramycin susceptibility test by minimum inhibitory concentration < = NRG Cefazolin susceptibility test by minimum inhibitory concentration > = NRG Ceftriaxone susceptibility test by minimum inhibitory concentration >= NRG Ampicillin/sulbactam susceptibility test by minimum inhibitory concentration 16 NRG Ciprofloxacin susceptibility test by minimum inhibitory concentration >= NRG Meropenem susceptibility test by minimum inhibitory concentration < = NRG Nitrofurantoin susceptibility test by minimum inhibitory concentration <= NRG Aztreonam susceptibility test by minimum inhibitory concentration > = NRG Extended spectrum beta lactamase (ESBL) producing bacteria susceptibility test by minimum inhibitory concentration + NRG Complete blood count (CBC) with automated white blood cell (WBC) differential - 01/21/16 21:25 Blood leukocytes automated count (number/volume) 17.9 10*3/uL 4.3-11.0 Blood erythrocytes automated count (number/volume) 4.28 10*6/uL 4.35-5.85 Venous blood hemoglobin measurement (mass/volume) 9.8 g/dL 13.3-17.7 Blood hematocrit (volume fraction) 33 % 40-54 Automated erythrocyte mean corpuscular volume 77 [foz_us] 80-99 Automated erythrocyte mean corpuscular hemoglobin (mass per erythrocyte) 23 pg 25-34 Automated erythrocyte mean corpuscular hemoglobin concentration measurement ( mass/volume) 30 g/dL 32-36 Automated erythrocyte distribution width ratio 17.1 % 10.0-14.5 Automated blood platelet count (count/volume) 382 10*3/uL 130-400 Automated blood platelet mean volume measurement 10.6 [foz_us] 7.4-10.4 Automated blood neutrophils/100 leukocytes 87 % 42-75 Automated blood lymphocytes/100 leukocytes 6 % 12-44 Blood monocytes/100 leukocytes 7 % 0-12 Automated blood eosinophils/100 leukocytes 1 % 0-10 Automated blood basophils/100 leukocytes 0 % 0-10 Blood neutrophils automated count (number/volume) 15.5 10*3 1.8-7.8 Blood lymphocytes automated count (number/volume) 1.1 10*3 1.0-4.0 Blood monocytes automated count (number/volume) 1.2 10*3 0.0-1.0 Automated eosinophil count 0.1 10*3/uL 0.0-0.3 Automated blood basophil count (count/volume) 0.1 10*3/uL 0.0-0.1 Blood lactic acid measurement (moles/volume) - 01/21/16 21:25 Blood lactic acid measurement (moles/volume) 1.7 mmol/L 0.5-2.0 Comprehensive metabolic panel - 01/21/16 21:25 Serum or plasma sodium measurement (moles/volume) 134 mmol/L 135-145 Serum or plasma potassium measurement (moles/volume) 4.5 mmol/L 3.6-5.0 Serum or plasma chloride measurement (moles/volume) 106 mmol/L 98-107 Carbon dioxide 18 mmol/L 21-32 Serum or plasma anion gap determination (moles/volume) 10 mmol/L 5-14 Serum or plasma urea nitrogen measurement (mass/volume) 12 mg/dL 7-18 Serum or plasma creatinine measurement (mass/volume) 1.59 mg/dL 0.60-1.30 Serum or plasma urea nitrogen/creatinine mass ratio 8 NRG Serum or plasma creatinine measurement with calculation of estimated glomerular filtration rate 42 NRG Serum or plasma glucose measurement (mass/volume) 117 mg/dL 70-105 Serum or plasma calcium measurement (mass/volume) 9.6 mg/dL 8.5-10.1 Serum or plasma total bilirubin measurement (mass/volume) 0.8 mg/dL 0.1-1.0 Serum or plasma alkaline phosphatase measurement (enzymatic activity/volume) 97 U/L 40-136 Serum or plasma aspartate aminotransferase measurement (enzymatic activity/ volume) 13 U/L 5-34 Serum or plasma alanine aminotransferase measurement (enzymatic activity/volume ) 9 U/L 0-55 Serum or plasma protein measurement (mass/volume) 7.4 g/dL 6.4-8.2 Serum or plasma albumin measurement (mass/volume) 3.6 g/dL 3.2-4.5 Blood manual differential performed detection - 01/21/16 21:25 Blood monocytes/100 leukocytes 1 % NRG Manual blood segmented neutrophils/100 leukocytes 84 % NRG Blood band neutrophils/100 leukocytes 0 % NRG Manual blood lymphocytes/100 leukocytes 14 % NRG Manual eosinophils/100 leukocytes in nose 0 % NRG Manual blood basophils/100 leukocytes 1 % NRG Blood ovalocytes detection by light microscopy SLIGHT NRG Blood microcytes detection by light microscopy SLIGHT NRG Blood spherocytes detection by light microscopy SLIGHT NRG Bacterial blood culture - 01/21/16 21:25 Bacterial blood culture NG NRG Bacterial blood culture - 01/21/16 21:35 Bacterial blood culture NG NRG Complete blood count (CBC) with automated white blood cell (WBC) differential - 01/22/16 05:20 Blood leukocytes automated count (number/volume) 16.6 10*3/uL 4.3-11.0 Blood erythrocytes automated count (number/volume) 3.74 10*6/uL 4.35-5.85 Venous blood hemoglobin measurement (mass/volume) 8.5 g/dL 13.3-17.7 Blood hematocrit (volume fraction) 29 % 40-54 Automated erythrocyte mean corpuscular volume 78 [foz_us] 80-99 Automated erythrocyte mean corpuscular hemoglobin (mass per erythrocyte) 23 pg 25-34 Automated erythrocyte mean corpuscular hemoglobin concentration measurement ( mass/volume) 29 g/dL 32-36 Automated erythrocyte distribution width ratio 17.0 % 10.0-14.5 Automated blood platelet count (count/volume) 306 10*3/uL 130-400 Automated blood platelet mean volume measurement 10.6 [foz_us] 7.4-10.4 Automated blood neutrophils/100 leukocytes 88 % 42-75 Automated blood lymphocytes/100 leukocytes 5 % 12-44 Blood monocytes/100 leukocytes 7 % 0-12 Automated blood eosinophils/100 leukocytes 0 % 0-10 Automated blood basophils/100 leukocytes 0 % 0-10 Blood neutrophils automated count (number/volume) 14.6 10*3 1.8-7.8 Blood lymphocytes automated count (number/volume) 0.8 10*3 1.0-4.0 Blood monocytes automated count (number/volume) 1.2 10*3 0.0-1.0 Automated eosinophil count 0.0 10*3/uL 0.0-0.3 Automated blood basophil count (count/volume) 0.0 10*3/uL 0.0-0.1 Comprehensive metabolic panel - 01/22/16 05:20 Serum or plasma sodium measurement (moles/volume) 137 mmol/L 135-145 Serum or plasma potassium measurement (moles/volume) 4.6 mmol/L 3.6-5.0 Serum or plasma chloride measurement (moles/volume) 114 mmol/L 98-107 Carbon dioxide 16 mmol/L 21-32 Serum or plasma anion gap determination (moles/volume) 7 mmol/L 5-14 Serum or plasma urea nitrogen measurement (mass/volume) 11 mg/dL 7-18 Serum or plasma creatinine measurement (mass/volume) 1.28 mg/dL 0.60-1.30 Serum or plasma urea nitrogen/creatinine mass ratio 9 NRG Serum or plasma creatinine measurement with calculation of estimated glomerular filtration rate 54 NRG Serum or plasma glucose measurement (mass/volume) 112 mg/dL 70-105 Serum or plasma calcium measurement (mass/volume) 8.6 mg/dL 8.5-10.1 Serum or plasma total bilirubin measurement (mass/volume) 0.6 mg/dL 0.1-1.0 Serum or plasma alkaline phosphatase measurement (enzymatic activity/volume) 79 U/L 40-136 Serum or plasma aspartate aminotransferase measurement (enzymatic activity/ volume) 7 U/L 5-34 Serum or plasma alanine aminotransferase measurement (enzymatic activity/volume ) 7 U/L 0-55 Serum or plasma protein measurement (mass/volume) 6.0 g/dL 6.4-8.2 Serum or plasma albumin measurement (mass/volume) 2.9 g/dL 3.2-4.5 PT panel in platelet poor plasma by coagulation assay - 01/22/16 05:20 Prothrombin time (PT) in platelet poor plasma by coagulation assay 30.7 s 12.2-14.7 INR in platelet poor plasma or blood by coagulation assay 3.0 0.8-1.4 Digoxin - 01/22/16 14:50 Digoxin 0.59 ng/mL 0.80-2.00 Bacterial blood culture - 01/22/16 15:45 Bacterial blood culture NG NRG Bacterial blood culture - 01/22/16 16:00 Bacterial blood culture NG NRG Complete blood count (CBC) with automated white blood cell (WBC) differential - 01/23/16 05:00 Blood leukocytes automated count (number/volume) 14.5 10*3/uL 4.3-11.0 Blood erythrocytes automated count (number/volume) 3.33 10*6/uL 4.35-5.85 Venous blood hemoglobin measurement (mass/volume) 7.6 g/dL 13.3-17.7 Blood hematocrit (volume fraction) 26 % 40-54 Automated erythrocyte mean corpuscular volume 78 [foz_us] 80-99 Automated erythrocyte mean corpuscular hemoglobin (mass per erythrocyte) 23 pg 25-34 Automated erythrocyte mean corpuscular hemoglobin concentration measurement ( mass/volume) 29 g/dL 32-36 Automated erythrocyte distribution width ratio 16.9 % 10.0-14.5 Automated blood platelet count (count/volume) 269 10*3/uL 130-400 Automated blood platelet mean volume measurement 11.0 [foz_us] 7.4-10.4 Automated blood neutrophils/100 leukocytes 89 % 42-75 Automated blood lymphocytes/100 leukocytes 5 % 12-44 Blood monocytes/100 leukocytes 6 % 0-12 Automated blood eosinophils/100 leukocytes 1 % 0-10 Automated blood basophils/100 leukocytes 0 % 0-10 Blood neutrophils automated count (number/volume) 12.8 10*3 1.8-7.8 Blood lymphocytes automated count (number/volume) 0.7 10*3 1.0-4.0 Blood monocytes automated count (number/volume) 0.8 10*3 0.0-1.0 Automated eosinophil count 0.1 10*3/uL 0.0-0.3 Automated blood basophil count (count/volume) 0.0 10*3/uL 0.0-0.1 PT panel in platelet poor plasma by coagulation assay - 01/23/16 05:00 Prothrombin time (PT) in platelet poor plasma by coagulation assay 34.7 s 12.2-14.7 INR in platelet poor plasma or blood by coagulation assay 3.4 0.8-1.4 Comprehensive metabolic panel - 01/23/16 05:00 Serum or plasma sodium measurement (moles/volume) 133 mmol/L 135-145 Serum or plasma potassium measurement (moles/volume) 4.5 mmol/L 3.6-5.0 Serum or plasma chloride measurement (moles/volume) 110 mmol/L 98-107 Carbon dioxide 15 mmol/L 21-32 Serum or plasma anion gap determination (moles/volume) 8 mmol/L 5-14 Serum or plasma urea nitrogen measurement (mass/volume) 14 mg/dL 7-18 Serum or plasma creatinine measurement (mass/volume) 1.21 mg/dL 0.60-1.30 Serum or plasma urea nitrogen/creatinine mass ratio 12 NRG Serum or plasma creatinine measurement with calculation of estimated glomerular filtration rate 57 NRG Serum or plasma glucose measurement (mass/volume) 118 mg/dL 70-105 Serum or plasma calcium measurement (mass/volume) 8.3 mg/dL 8.5-10.1 Serum or plasma total bilirubin measurement (mass/volume) 0.3 mg/dL 0.1-1.0 Serum or plasma alkaline phosphatase measurement (enzymatic activity/volume) 72 U/L 40-136 Serum or plasma aspartate aminotransferase measurement (enzymatic activity/ volume) 11 U/L 5-34 Serum or plasma alanine aminotransferase measurement (enzymatic activity/volume ) < U/L 0-55 Serum or plasma protein measurement (mass/volume) 5.5 g/dL 6.4-8.2 Serum or plasma albumin measurement (mass/volume) 2.6 g/dL 3.2-4.5 Magnesium - 01/23/16 05:00 Magnesium 1.9 mg/dL 1.8-2.4 Complete urinalysis with reflex to culture - 01/23/16 06:15 Urine color determination YELLOW NRG Urine clarity determination CLEAR NRG Urine pH measurement by test strip 6.5 5-9 Specific gravity of urine by test strip 1.010 1.016- 1.022 Urine protein assay by test strip, semi-quantitative 1+ NEGATIVE Urine glucose detection by automated test strip NEGATIVE NEGATIVE Erythrocytes detection in urine sediment by light microscopy 3+ NEGATIVE Urine ketones detection by automated test strip NEGATIVE NEGATIVE Urine nitrite detection by test strip NEGATIVE NEGATIVE Urine total bilirubin detection by test strip NEGATIVE NEGATIVE Urine urobilinogen measurement by automated test strip (mass/volume) NORMAL NORMAL Urine leukocyte esterase detection by dipstick 3+ NEGATIVE Automated urine sediment erythrocyte count by microscopy (number/high power field) [HPF] NRG Automated urine sediment leukocyte count by microscopy (number/high power field ) [HPF] NRG Bacteria detection in urine sediment by light microscopy NEGATIVE NRG Squamous epithelial cells detection in urine sediment by light microscopy NONE NRG Crystals detection in urine sediment by light microscopy NONE NRG Casts detection in urine sediment by light microscopy NONE NRG Mucus detection in urine sediment by light microscopy NEGATIVE NRG Complete urinalysis with reflex to culture YES NRG Bacterial urine culture - 01/23/16 06:15 Bacterial urine culture NG NRG Stool occult blood screen - 01/23/16 09:00 Stool gastrointestinal hemoglobin detection POSITIVE NEGATIVE PT panel in platelet poor plasma by coagulation assay - 01/24/16 04:49 Prothrombin time (PT) in platelet poor plasma by coagulation assay 30.3 s 12.2-14.7 INR in platelet poor plasma or blood by coagulation assay 2.9 0.8-1.4 Complete blood count (CBC) with automated white blood cell (WBC) differential - 01/24/16 04:49 Blood leukocytes automated count (number/volume) 12.7 10*3/uL 4.3-11.0 Blood erythrocytes automated count (number/volume) 3.20 10*6/uL 4.35-5.85 Venous blood hemoglobin measurement (mass/volume) 7.2 g/dL 13.3-17.7 Blood hematocrit (volume fraction) 25 % 40-54 Automated erythrocyte mean corpuscular volume 79 [foz_us] 80-99 Automated erythrocyte mean corpuscular hemoglobin (mass per erythrocyte) 23 pg 25-34 Automated erythrocyte mean corpuscular hemoglobin concentration measurement ( mass/volume) 29 g/dL 32-36 Automated erythrocyte distribution width ratio 17.3 % 10.0-14.5 Automated blood platelet count (count/volume) 265 10*3/uL 130-400 Automated blood platelet mean volume measurement 10.9 [foz_us] 7.4-10.4 Automated blood neutrophils/100 leukocytes 82 % 42-75 Automated blood lymphocytes/100 leukocytes 8 % 12-44 Blood monocytes/100 leukocytes 7 % 0-12 Automated blood eosinophils/100 leukocytes 2 % 0-10 Automated blood basophils/100 leukocytes 0 % 0-10 Blood neutrophils automated count (number/volume) 10.4 10*3 1.8-7.8 Blood lymphocytes automated count (number/volume) 1.1 10*3 1.0-4.0 Blood monocytes automated count (number/volume) 0.9 10*3 0.0-1.0 Automated eosinophil count 0.3 10*3/uL 0.0-0.3 Automated blood basophil count (count/volume) 0.0 10*3/uL 0.0-0.1 RED CELLS LEUKO REDUCED AS1 - 01/24/16 15:15 RED CELLS LEUKO REDUCED AS1 TRANSFUSED 01/25/16 0305 [facility] Blood type T Indirect antibody screen panel - 01/24/16 15:15 ABO+Rh group AP NRG Transfusion band number [id number] NR Blood group antibody screen NEGATIVE NR Complete blood count (CBC) with automated white blood cell (WBC) differential - 01/25/16 07:05 Blood leukocytes automated count (number/volume) 9.0 10*3/uL 4.3-11.0 Blood erythrocytes automated count (number/volume) 4.03 10*6/uL 4.35-5.85 Venous blood hemoglobin measurement (mass/volume) 9.7 g/dL 13.3-17.7 Blood hematocrit (volume fraction) 32 % 40-54 Automated erythrocyte mean corpuscular volume 78 [foz_us] 80-99 Automated erythrocyte mean corpuscular hemoglobin (mass per erythrocyte) 24 pg 25-34 Automated erythrocyte mean corpuscular hemoglobin concentration measurement ( mass/volume) 31 g/dL 32-36 Automated erythrocyte distribution width ratio 17.4 % 10.0-14.5 Automated blood platelet count (count/volume) 286 10*3/uL 130-400 Automated blood platelet mean volume measurement 10.5 [foz_us] 7.4-10.4 Automated blood neutrophils/100 leukocytes 79 % 42-75 Automated blood lymphocytes/100 leukocytes 11 % 12-44 Blood monocytes/100 leukocytes 7 % 0-12 Automated blood eosinophils/100 leukocytes 3 % 0-10 Automated blood basophils/100 leukocytes 0 % 0-10 Blood neutrophils automated count (number/volume) 7.1 10*3 1.8-7.8 Blood lymphocytes automated count (number/volume) 1.0 10*3 1.0-4.0 Blood monocytes automated count (number/volume) 0.6 10*3 0.0-1.0 Automated eosinophil count 0.2 10*3/uL 0.0-0.3 Automated blood basophil count (count/volume) 0.0 10*3/uL 0.0-0.1 PT panel in platelet poor plasma by coagulation assay - 01/25/16 07:05 Prothrombin time (PT) in platelet poor plasma by coagulation assay 23.8 s 12.2-14.7 INR in platelet poor plasma or blood by coagulation assay 2.2 0.8-1.4 Complete blood count (CBC) with automated white blood cell (WBC) differential - 01/26/16 05:35 Blood leukocytes automated count (number/volume) 8.1 10*3/uL 4.3-11.0 Blood erythrocytes automated count (number/volume) 4.09 10*6/uL 4.35-5.85 Venous blood hemoglobin measurement (mass/volume) 9.8 g/dL 13.3-17.7 Blood hematocrit (volume fraction) 32 % 40-54 Automated erythrocyte mean corpuscular volume 79 [foz_us] 80-99 Automated erythrocyte mean corpuscular hemoglobin (mass per erythrocyte) 24 pg 25-34 Automated erythrocyte mean corpuscular hemoglobin concentration measurement ( mass/volume) 30 g/dL 32-36 Automated erythrocyte distribution width ratio 17.7 % 10.0-14.5 Automated blood platelet count (count/volume) 296 10*3/uL 130-400 Automated blood platelet mean volume measurement 10.8 [foz_us] 7.4-10.4 Automated blood neutrophils/100 leukocytes 74 % 42-75 Automated blood lymphocytes/100 leukocytes 14 % 12-44 Blood monocytes/100 leukocytes 10 % 0-12 Automated blood eosinophils/100 leukocytes 2 % 0-10 Automated blood basophils/100 leukocytes 1 % 0-10 Blood neutrophils automated count (number/volume) 5.9 10*3 1.8-7.8 Blood lymphocytes automated count (number/volume) 1.1 10*3 1.0-4.0 Blood monocytes automated count (number/volume) 0.8 10*3 0.0-1.0 Automated eosinophil count 0.1 10*3/uL 0.0-0.3 Automated blood basophil count (count/volume) 0.0 10*3/uL 0.0-0.1 PT panel in platelet poor plasma by coagulation assay - 01/26/16 05:35 Prothrombin time (PT) in platelet poor plasma by coagulation assay 21.1 s 12.2-14.7 INR in platelet poor plasma or blood by coagulation assay 1.9 0.8-1.4 Whole blood basic metabolic panel - 01/26/16 05:35 Serum or plasma sodium measurement (moles/volume) 136 mmol/L 135-145 Serum or plasma potassium measurement (moles/volume) 4.9 mmol/L 3.6-5.0 Serum or plasma chloride measurement (moles/volume) 108 mmol/L 98-107 Carbon dioxide 21 mmol/L 21-32 Serum or plasma anion gap determination (moles/volume) 7 mmol/L 5-14 Serum or plasma urea nitrogen measurement (mass/volume) 12 mg/dL 7-18 Serum or plasma creatinine measurement (mass/volume) 1.23 mg/dL 0.60-1.30 Serum or plasma urea nitrogen/creatinine mass ratio 10 NRG Serum or plasma creatinine measurement with calculation of estimated glomerular filtration rate 56 NRG Serum or plasma glucose measurement (mass/volume) 100 mg/dL 70-105 Serum or plasma calcium measurement (mass/volume) 9.0 mg/dL 8.5-10.1 Serum or plasma lithium measurement (moles/volume) - 01/26/16 05:35 BNP level 383.9 pg/mL <100.0 PT panel in platelet poor plasma by coagulation assay - 01/27/16 04:27 Prothrombin time (PT) in platelet poor plasma by coagulation assay 20.9 s 12.2-14.7 INR in platelet poor plasma or blood by coagulation assay 1.8 0.8-1.4 Complete blood count (CBC) with automated white blood cell (WBC) differential - 01/27/16 04:27 Blood leukocytes automated count (number/volume) 8.4 10*3/uL 4.3-11.0 Blood erythrocytes automated count (number/volume) 3.81 10*6/uL 4.35-5.85 Venous blood hemoglobin measurement (mass/volume) 9.2 g/dL 13.3-17.7 Blood hematocrit (volume fraction) 30 % 40-54 Automated erythrocyte mean corpuscular volume 80 [foz_us] 80-99 Automated erythrocyte mean corpuscular hemoglobin (mass per erythrocyte) 24 pg 25-34 Automated erythrocyte mean corpuscular hemoglobin concentration measurement ( mass/volume) 30 g/dL 32-36 Automated erythrocyte distribution width ratio 17.8 % 10.0-14.5 Automated blood platelet count (count/volume) 290 10*3/uL 130-400 Automated blood platelet mean volume measurement 10.7 [foz_us] 7.4-10.4 Automated blood neutrophils/100 leukocytes 69 % 42-75 Automated blood lymphocytes/100 leukocytes 14 % 12-44 Blood monocytes/100 leukocytes 12 % 0-12 Automated blood eosinophils/100 leukocytes 4 % 0-10 Automated blood basophils/100 leukocytes 0 % 0-10 Blood neutrophils automated count (number/volume) 5.9 10*3 1.8-7.8 Blood lymphocytes automated count (number/volume) 1.2 10*3 1.0-4.0 Blood monocytes automated count (number/volume) 1.0 10*3 0.0-1.0 Automated eosinophil count 0.3 10*3/uL 0.0-0.3 Automated blood basophil count (count/volume) 0.0 10*3/uL 0.0-0.1 Whole blood basic metabolic panel - 01/27/16 04:27 Serum or plasma sodium measurement (moles/volume) 140 mmol/L 135-145 Serum or plasma potassium measurement (moles/volume) 4.5 mmol/L 3.6-5.0 Serum or plasma chloride measurement (moles/volume) 113 mmol/L 98-107 Carbon dioxide 21 mmol/L 21-32 Serum or plasma anion gap determination (moles/volume) 6 mmol/L 5-14 Serum or plasma urea nitrogen measurement (mass/volume) 13 mg/dL 7-18 Serum or plasma creatinine measurement (mass/volume) 1.19 mg/dL 0.60-1.30 Serum or plasma urea nitrogen/creatinine mass ratio 11 NRG Serum or plasma creatinine measurement with calculation of estimated glomerular filtration rate 58 NRG Serum or plasma glucose measurement (mass/volume) 130 mg/dL 70-105 Serum or plasma calcium measurement (mass/volume) 8.6 mg/dL 8.5-10.1 Automated blood complete blood count (hemogram) panel - 01/28/16 09:25 Blood leukocytes automated count (number/volume) 8.5 10*3/uL 4.3-11.0 Blood erythrocytes automated count (number/volume) 4.33 10*6/uL 4.35-5.85 Venous blood hemoglobin measurement (mass/volume) 10.4 g/dL 13.3-17.7 Blood hematocrit (volume fraction) 35 % 40-54 Automated erythrocyte mean corpuscular volume 81 [foz_us] 80-99 Automated erythrocyte mean corpuscular hemoglobin (mass per erythrocyte) 24 pg 25-34 Automated erythrocyte mean corpuscular hemoglobin concentration measurement ( mass/volume) 30 g/dL 32-36 Automated erythrocyte distribution width ratio 17.8 % 10.0-14.5 Automated blood platelet count (count/volume) 305 10*3/uL 130-400 Automated blood platelet mean volume measurement 10.5 [foz_us] 7.4-10.4 PT panel in platelet poor plasma by coagulation assay - 01/28/16 09:25 Prothrombin time (PT) in platelet poor plasma by coagulation assay 18.9 s 12.2-14.7 INR in platelet poor plasma or blood by coagulation assay 1.6 0.8-1.4 Whole blood basic metabolic panel - 01/28/16 09:25 Serum or plasma sodium measurement (moles/volume) 140 mmol/L 135-145 Serum or plasma potassium measurement (moles/volume) 4.1 mmol/L 3.6-5.0 Serum or plasma chloride measurement (moles/volume) 111 mmol/L 98-107 Carbon dioxide 22 mmol/L 21-32 Serum or plasma anion gap determination (moles/volume) 7 mmol/L 5-14 Serum or plasma urea nitrogen measurement (mass/volume) 17 mg/dL 7-18 Serum or plasma creatinine measurement (mass/volume) 1.24 mg/dL 0.60-1.30 Serum or plasma urea nitrogen/creatinine mass ratio 14 NRG Serum or plasma creatinine measurement with calculation of estimated glomerular filtration rate 56 NRG Serum or plasma glucose measurement (mass/volume) 204 mg/dL 70-105 Serum or plasma calcium measurement (mass/volume) 9.3 mg/dL 8.5-10.1 Serum or plasma lithium measurement (moles/volume) - 01/28/16 09:25 BNP level 274.9 pg/mL <100.0 Complete urinalysis with reflex to culture - 01/28/16 12:00 Urine color determination YELLOW NRG Urine clarity determination CLEAR NRG Urine pH measurement by test strip 8 5-9 Specific gravity of urine by test strip 1.010 1.016- 1.022 Urine protein assay by test strip, semi-quantitative NEGATIVE NEGATIVE Urine glucose detection by automated test strip NEGATIVE NEGATIVE Erythrocytes detection in urine sediment by light microscopy NEGATIVE NEGATIVE Urine ketones detection by automated test strip NEGATIVE NEGATIVE Urine nitrite detection by test strip NEGATIVE NEGATIVE Urine total bilirubin detection by test strip NEGATIVE NEGATIVE Urine urobilinogen measurement by automated test strip (mass/volume) NORMAL NORMAL Urine leukocyte esterase detection by dipstick NEGATIVE NEGATIVE Automated urine sediment erythrocyte count by microscopy (number/high power field) NONE NRG Automated urine sediment leukocyte count by microscopy (number/high power field ) NONE NRG Bacteria detection in urine sediment by light microscopy NEGATIVE NRG Squamous epithelial cells detection in urine sediment by light microscopy RARE NRG Crystals detection in urine sediment by light microscopy NONE NRG Casts detection in urine sediment by light microscopy NONE NRG Mucus detection in urine sediment by light microscopy NEGATIVE NRG Complete urinalysis with reflex to culture NO NRG Automated blood complete blood count (hemogram) panel - 01/29/16 05:28 Blood leukocytes automated count (number/volume) 8.5 10*3/uL 4.3-11.0 Blood erythrocytes automated count (number/volume) 4.00 10*6/uL 4.35-5.85 Venous blood hemoglobin measurement (mass/volume) 9.6 g/dL 13.3-17.7 Blood hematocrit (volume fraction) 32 % 40-54 Automated erythrocyte mean corpuscular volume 79 [foz_us] 80-99 Automated erythrocyte mean corpuscular hemoglobin (mass per erythrocyte) 24 pg 25-34 Automated erythrocyte mean corpuscular hemoglobin concentration measurement ( mass/volume) 30 g/dL 32-36 Automated erythrocyte distribution width ratio 17.7 % 10.0-14.5 Automated blood platelet count (count/volume) 285 10*3/uL 130-400 Automated blood platelet mean volume measurement 11.2 [foz_us] 7.4-10.4 PT panel in platelet poor plasma by coagulation assay - 01/29/16 05:28 Prothrombin time (PT) in platelet poor plasma by coagulation assay 19.8 s 12.2-14.7 INR in platelet poor plasma or blood by coagulation assay 1.7 0.8-1.4 Whole blood basic metabolic panel - 01/29/16 05:28 Serum or plasma sodium measurement (moles/volume) 140 mmol/L 135-145 Serum or plasma potassium measurement (moles/volume) 4.5 mmol/L 3.6-5.0 Serum or plasma chloride measurement (moles/volume) 112 mmol/L 98-107 Carbon dioxide 19 mmol/L 21-32 Serum or plasma anion gap determination (moles/volume) 9 mmol/L 5-14 Serum or plasma urea nitrogen measurement (mass/volume) 14 mg/dL 7-18 Serum or plasma creatinine measurement (mass/volume) 1.03 mg/dL 0.60-1.30 Serum or plasma urea nitrogen/creatinine mass ratio 14 NRG Serum or plasma creatinine measurement with calculation of estimated glomerular filtration rate > NRG Serum or plasma glucose measurement (mass/volume) 100 mg/dL 70-105 Serum or plasma calcium measurement (mass/volume) 9.0 mg/dL 8.5-10.1 Complete urinalysis with reflex to culture - 04/30/16 18:53 Urine color determination YELLOW NRG Urine clarity determination CLEAR NRG Urine pH measurement by test strip 6.5 5-9 Specific gravity of urine by test strip 1.010 1.016- 1.022 Urine protein assay by test strip, semi-quantitative NEGATIVE NEGATIVE Urine glucose detection by automated test strip NEGATIVE NEGATIVE Erythrocytes detection in urine sediment by light microscopy 1+ NEGATIVE Urine ketones detection by automated test strip NEGATIVE NEGATIVE Urine nitrite detection by test strip NEGATIVE NEGATIVE Urine total bilirubin detection by test strip NEGATIVE NEGATIVE Urine urobilinogen measurement by automated test strip (mass/volume) NORMAL NORMAL Urine leukocyte esterase detection by dipstick NEGATIVE NEGATIVE Automated urine sediment erythrocyte count by microscopy (number/high power field) NONE NRG Automated urine sediment leukocyte count by microscopy (number/high power field ) NONE NRG Bacteria detection in urine sediment by light microscopy NONE NRG Squamous epithelial cells detection in urine sediment by light microscopy 0-2 NRG Crystals detection in urine sediment by light microscopy NONE NRG Casts detection in urine sediment by light microscopy NONE NRG Mucus detection in urine sediment by light microscopy NEGATIVE NRG Complete urinalysis with reflex to culture NO NRG Complete blood count (CBC) with automated white blood cell (WBC) differential - 04/30/16 19:37 Blood leukocytes automated count (number/volume) 8.1 10*3/uL 4.3-11.0 Blood erythrocytes automated count (number/volume) 4.60 10*6/uL 4.35-5.85 Venous blood hemoglobin measurement (mass/volume) 11.8 g/dL 13.3-17.7 Blood hematocrit (volume fraction) 39 % 40-54 Automated erythrocyte mean corpuscular volume 84 [foz_us] 80-99 Automated erythrocyte mean corpuscular hemoglobin (mass per erythrocyte) 26 pg 25-34 Automated erythrocyte mean corpuscular hemoglobin concentration measurement ( mass/volume) 31 g/dL 32-36 Automated erythrocyte distribution width ratio 16.4 % 10.0-14.5 Automated blood platelet count (count/volume) 249 10*3/uL 130-400 Automated blood platelet mean volume measurement 10.4 [foz_us] 7.4-10.4 Automated blood neutrophils/100 leukocytes 73 % 42-75 Automated blood lymphocytes/100 leukocytes 16 % 12-44 Blood monocytes/100 leukocytes 7 % 0-12 Automated blood eosinophils/100 leukocytes 3 % 0-10 Automated blood basophils/100 leukocytes 1 % 0-10 Blood neutrophils automated count (number/volume) 5.9 10*3 1.8-7.8 Blood lymphocytes automated count (number/volume) 1.3 10*3 1.0-4.0 Blood monocytes automated count (number/volume) 0.6 10*3 0.0-1.0 Automated eosinophil count 0.3 10*3/uL 0.0-0.3 Automated blood basophil count (count/volume) 0.0 10*3/uL 0.0-0.1 Comprehensive metabolic panel - 04/30/16 19:37 Serum or plasma sodium measurement (moles/volume) 137 mmol/L 135-145 Serum or plasma potassium measurement (moles/volume) 4.2 mmol/L 3.6-5.0 Serum or plasma chloride measurement (moles/volume) 108 mmol/L 98-107 Carbon dioxide 22 mmol/L 21-32 Serum or plasma anion gap determination (moles/volume) 7 mmol/L 5-14 Serum or plasma urea nitrogen measurement (mass/volume) 15 mg/dL 7-18 Serum or plasma creatinine measurement (mass/volume) 1.29 mg/dL 0.60-1.30 Serum or plasma urea nitrogen/creatinine mass ratio 12 NRG Serum or plasma creatinine measurement with calculation of estimated glomerular filtration rate 53 NRG Serum or plasma glucose measurement (mass/volume) 114 mg/dL 70-105 Serum or plasma calcium measurement (mass/volume) 9.2 mg/dL 8.5-10.1 Serum or plasma total bilirubin measurement (mass/volume) 0.3 mg/dL 0.1-1.0 Serum or plasma alkaline phosphatase measurement (enzymatic activity/volume) 90 U/L 40-136 Serum or plasma aspartate aminotransferase measurement (enzymatic activity/ volume) 13 U/L 5-34 Serum or plasma alanine aminotransferase measurement (enzymatic activity/volume ) 7 U/L 0-55 Serum or plasma protein measurement (mass/volume) 7.3 g/dL 6.4-8.2 Serum or plasma albumin measurement (mass/volume) 3.5 g/dL 3.2-4.5 Complete blood count (CBC) with automated white blood cell (WBC) differential - 05/25/16 10:48 Blood leukocytes automated count (number/volume) 8.6 10*3/uL 4.3-11.0 Blood erythrocytes automated count (number/volume) 4.98 10*6/uL 4.35-5.85 Venous blood hemoglobin measurement (mass/volume) 12.9 g/dL 13.3-17.7 Blood hematocrit (volume fraction) 42 % 40-54 Automated erythrocyte mean corpuscular volume 84 [foz_us] 80-99 Automated erythrocyte mean corpuscular hemoglobin (mass per erythrocyte) 26 pg 25-34 Automated erythrocyte mean corpuscular hemoglobin concentration measurement ( mass/volume) 31 g/dL 32-36 Automated erythrocyte distribution width ratio 16.5 % 10.0-14.5 Automated blood platelet count (count/volume) 224 10*3/uL 130-400 Automated blood platelet mean volume measurement 10.5 [foz_us] 7.4-10.4 Automated blood neutrophils/100 leukocytes 80 % 42-75 Automated blood lymphocytes/100 leukocytes 12 % 12-44 Blood monocytes/100 leukocytes 6 % 0-12 Automated blood eosinophils/100 leukocytes 2 % 0-10 Automated blood basophils/100 leukocytes 0 % 0-10 Blood neutrophils automated count (number/volume) 6.8 10*3 1.8-7.8 Blood lymphocytes automated count (number/volume) 1.0 10*3 1.0-4.0 Blood monocytes automated count (number/volume) 0.5 10*3 0.0-1.0 Automated eosinophil count 0.2 10*3/uL 0.0-0.3 Automated blood basophil count (count/volume) 0.0 10*3/uL 0.0-0.1 PT panel in platelet poor plasma by coagulation assay - 05/25/16 10:48 Prothrombin time (PT) in platelet poor plasma by coagulation assay 25.8 s 12.2-14.7 INR in platelet poor plasma or blood by coagulation assay 2.4 0.8-1.4 Activated partial thromboplastin time (aPTT) in platelet poor plasma bycoagulation assay - 05/25/16 10:48 Activated partial thromboplastin time (aPTT) in platelet poor plasma bycoagulation assay 47 s 24-35 Comprehensive metabolic panel - 05/25/16 10:48 Serum or plasma sodium measurement (moles/volume) 136 mmol/L 135-145 Serum or plasma potassium measurement (moles/volume) 4.8 mmol/L 3.6-5.0 Serum or plasma chloride measurement (moles/volume) 110 mmol/L 98-107 Carbon dioxide 21 mmol/L 21-32 Serum or plasma anion gap determination (moles/volume) 5 mmol/L 5-14 Serum or plasma urea nitrogen measurement (mass/volume) 15 mg/dL 7-18 Serum or plasma creatinine measurement (mass/volume) 1.31 mg/dL 0.60-1.30 Serum or plasma urea nitrogen/creatinine mass ratio 11 NRG Serum or plasma creatinine measurement with calculation of estimated glomerular filtration rate 52 NRG Serum or plasma glucose measurement (mass/volume) 144 mg/dL 70-105 Serum or plasma calcium measurement (mass/volume) 9.4 mg/dL 8.5-10.1 Serum or plasma total bilirubin measurement (mass/volume) 0.5 mg/dL 0.1-1.0 Serum or plasma alkaline phosphatase measurement (enzymatic activity/volume) 103 U/L 40-136 Serum or plasma aspartate aminotransferase measurement (enzymatic activity/ volume) 10 U/L 5-34 Serum or plasma alanine aminotransferase measurement (enzymatic activity/volume ) 6 U/L 0-55 Serum or plasma protein measurement (mass/volume) 7.8 g/dL 6.4-8.2 Serum or plasma albumin measurement (mass/volume) 3.9 g/dL 3.2-4.5 Magnesium - 05/25/16 10:48 Magnesium 2.1 mg/dL 1.8-2.4 Digoxin - 05/25/16 10:48 Digoxin 1.22 ng/mL 0.80-2.00 Serum or plasma troponin i.cardiac measurement (mass/volume) - 05/25/16 10:48 Serum or plasma troponin i.cardiac measurement (mass/volume) < ng/ mL <0.30 Myoglobin, serum - 05/25/16 10:48 Myoglobin, serum 48.0 ng/mL 10.0-92.0 PT panel in platelet poor plasma by coagulation assay - 09/08/16 13:16 Prothrombin time (PT) in platelet poor plasma by coagulation assay 22.6 s 12.2-14.7 INR in platelet poor plasma or blood by coagulation assay 2.0 0.8-1.4 PT panel in platelet poor plasma by coagulation assay - 09/10/16 08:53 Prothrombin time (PT) in platelet poor plasma by coagulation assay 15.4 s 12.2-14.7 INR in platelet poor plasma or blood by coagulation assay 1.3 0.8-1.4 Encounters ACCT No. Visit Date/Time Discharge Status Pt. Type Provider Facility Loc./Unit Complaint [id number] 10/11/2016 09:58:00 10/11/2016 13:10:00 DIS Outpatient JASWINDER CRAWFORD MD [facility] ENDO 6 MTH RE-CHECK TUBULAR TUBULOVILLOUS ADENOMATOSIS [id number] 10/07/2016 06:15:00 10/07/2016 23:59:59 CLS Outpatient JASWINDER CRAWFORD MD [facility] PREOP 6 MONTH RE CHECK [id number] 09/20/2016 10:19:00 09/20/2016 23:59:59 CLS Outpatient EUGENE KENNEDY DO [facility] RAD TB MONITOR TEST [id number] 09/10/2016 08:29:00 09/10/2016 23:59:59 CLS Outpatient SARAENID GLEASONEUGENE [facility] RAD THYROID MASS [id number] 09/08/2016 12:59:00 09/08/2016 23:59:59 CLS Outpatient SARAENID GLEASONEUGENE [facility] RAD THYROID MASS [id number] 09/01/2016 12:11:00 09/01/2016 23:59:59 CLS Outpatient SARAENID GLEASON EUGENE Barnhart [facility] RAD THYROID NODULES [id number] 08/20/2016 09:03:00 08/20/2016 23:59:59 CLS Outpatient EUGENE KENNEDY DO [place] [facility] RAD NECK PAIN [id number] 06/30/2016 07:53:00 06/30/2016 23:59:59 CLS Outpatient EUGENE AUSTIN MD [facility] CARD CHEST PAIN SYNDROME [id number] 06/09/2016 11:58:00 06/09/2016 23:59:59 CLS Outpatient EUGENE AUSTIN MD [facility] CARD CHEST PAIN SYNDROME [id number] 05/25/2016 10:06:00 05/25/2016 12:17:00 DIS Emergency PRAVEENA HERNANDEZ MD [facility] ER CHEST PAIN [id number] 04/30/2016 17:59:00 04/30/2016 21:53:00 DIS Emergency COSMO CREWS APRN [facility] ER R SIDE ABD PAIN [id number] 01/21/2016 22:10:00 01/29/2016 15:30:00 DIS Inpatient EUGENE KENNEDY DO [facility] 4TH UTI,SEPSIS [id number] 01/07/2016 08:45:00 01/08/2016 12:00:00 DIS Outpatient JASWINDER CRAWFORD MD [facility] BILATERAL INGUINAL HERNIA [id number] 01/06/2016 15:20:00 01/06/2016 15:53:00 DIS Outpatient JASWINDER CRAWFORD MD [facility] PREOP BILATERAL INGUINAL HERNIA [id number] 12/10/2015 11:17:00 12/10/2015 23:59:59 CLS Outpatient JOSE VICENTE, AB [place] [facility] CARD A-FIB,ANGINA PECTORIS [id number] 08/30/2015 18:48:00 08/30/2015 21:03:00 DIS Emergency BARRETT VICENTE, ARABELLA Barn[place] [facility] ER CHEST PAIN [id number] 04/02/2015 14:19:00 04/02/2015 23:59:59 CLS Outpatient EUGENE KENNEDY DO [facility] RAD LLQ PAIN,RENAL INSUFF
[2017-07-18 07:04] LABS: BASOPHILS % (AUTO) 0 % (0-10); EOSINOPHILS % (AUTO) 0 % (0-10); HEMATOCRIT 39 % (40-54); HEMOGLOBIN 12.9 G/DL (13.3-17.7); LYMPHOCYTES # (AUTO) 0.8 X 10^3 (1.0-4.0); LYMPHOCYTES % (AUTO) 7 % (12-44); MEAN CORPUSCULAR HEMOGLOBIN 26 PG (25-34); MEAN CORPUSCULAR HGB CONC 33 G/DL (32-36); MEAN CORPUSCULAR VOLUME 79 FL (80-99); MEAN PLATELET VOLUME 9.6 FL (7.4-10.4); MONOCYTES # (AUTO) 0.2 X 10^3 (0.0-1.0); MONOCYTES % (AUTO) 2 % (0-12); NEUTROPHILS # (AUTO) 9.6 X 10^3 (1.8-7.8); NEUTROPHILS % (AUTO) 90 % (42-75); PLATELET COUNT 295 10^3/uL (130-400); RED BLOOD COUNT 4.89 10^6/uL (4.35-5.85); RED CELL DISTRIBUTION WIDTH 16.5 % (10.0-14.5); WHITE BLOOD COUNT 10.6 10^3/uL (4.3-11.0)
[2017-07-18 07:15] LABS: INR 4.5 (0.8-1.4); PROTHROMBIN TIME PATIENT 42.1 SEC (12.2-14.7)
[2017-07-18] MEDS ORDERED: ONDANSETRON 4 MG/2 ML (SDV) Z0FRAN IVP ONE (07:15)
[2017-07-18 07:17] LABS: FIBRIN DEGRADATION PRODUCTS 1.14 UG/ML (0.00-0.49)
[2017-07-18 07:20] LABS: ALANINE AMINOTRANSFERASE 15 U/L (0-55); ALBUMIN 3.9 GM/DL (3.2-4.5); ALKALINE PHOSPHATASE 110 U/L (40-136); BILIRUBIN,TOTAL 1.1 MG/DL (0.1-1.0); BUN/CREATININE RATIO 9; CALCIUM 9.7 MG/DL (8.5-10.1); CARBON DIOXIDE 19 MMOL/L (21-32); CHLORIDE 104 MMOL/L (98-107); CREATININE SERUM 1.43 MG/DL (0.60-1.30); GFR ESTIMATED 47; GLUCOSE 309 MG/DL (70-105); POTASSIUM 4.1 MMOL/L (3.6-5.0); SODIUM 134 MMOL/L (135-145)
--- NOTE | 2017-07-18 07:44 | Diagnostic Imaging Report ---
Indication: Altered mental status. 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 Heart size and pulmonary vascularity are normal. Lungs are clear. There are no effusions or pneumothoraces. Impression: No acute abnormalities of the chest. Dictated by: Dictated on workstation # [id number]
--- NOTE | 2017-07-18 07:49 | Diagnostic Imaging Report ---
Indication: Altered mental status CT head without contrast There is generalized atrophy. There are no masses or hemorrhages. There are no extra-axial fluid collections. Impression: Diffuse cerebral degeneration. No acute abnormality seen in the head. There is no CT evidence for acute infarct. Dictated by: Dictated on workstation # [id number]
--- NOTE | 2017-07-18 07:54 | ED Neurological Problem ---
General Chief Complaint: Neuro-Stroke Like Symptoms Stated Complaint: POSS STROKE Nursing Triage Note: PT TO ED 7 FOR C/O WEAKNESS, STROKE LIKE SYMPTOMS. PER EMS, LAST KNOWN WELL TIME 0130 Nursing Sepsis Screen: No Definite Risk Source: EMS, halfway records Exam Limitations: clinical condition History of Present Illness Date Seen by Provider: Jul 18, 2017 Time Seen by Provider: 06:55 Initial Comments This 87-year-old gentleman presents to the emergency room from the halfway with acute onset of altered mental status. He is not responding to any instructions and not moving his extremities. He is blinking and tracking somewhat with eyes. He normally talks and cusses at staff which he was not doing this morning when he was assessed by staff. Last known well time was at 01:30. EMS thought there was perhaps some left-sided facial droop. Fingerstick blood sugar was 320. Stroke activation was paged upon patient arrival. Patient appears to be heaving slightly upon arrival. He is noted to be incontinent of urine with urine stains and moisture on his clothing. He is anticoagulated on warfarin. Allergies and Home Medications Allergies Coded Allergies: tetanus immune globulin (Unverified Allergy, Unknown, 04/30/16) Home Medications Acetaminophen 325 Mg Tablet, 650 MG PO Q4H PRN for PAIN-MILD, (Reported) TAKES 2 (325MG) TABLETS Atorvastatin Calcium 40 Mg Tablet, 40 MG PO HS, (Reported) Buspirone HCl 10 Mg Tablet, 2 TAB PO TID, (Reported) TAKES 2 (10MG) TABLETS Captopril 25 Mg Tablet, 50 MG PO BID, (Reported) HOLD AND NOTIFY PCP FOR BP LESS THAN 100/60 OR PULSE LESS THAN 60 Dextran 70/Hypromellose 1 Each Droperette, 1 DROP OU PRN PRN for DRY EYES, ( Reported) Digoxin 125 Mcg Tablet, 125 MCG PO DAILY, (Reported) HOLD DOSE IF <60 AND NOTIFY PCP Diltiazem HCl 240 Mg Cap.er.deg, 240 MG PO DAILY, (Reported) HOLD IF SYSTOLIC <100 Docusate Sodium 100 Mg Capsule, 100 MG PO Q12H PRN for CONSTIPATION-1ST LINE, ( Reported) Donepezil HCl 5 Mg Tablet, 5 MG PO HS, (Reported) Fluticasone/Salmeterol 12 Gm Hfa.aer.ad, 2 PUFF INH BID, (Reported) [place] Carbonate 450 Mg Tab, 450 MG PO DAILY, (Reported) Melatonin 5 Mg Tablet, 5 MG PO HS, (Reported) Nitroglycerin 0.4 Mg Tab.subl, 0.4 MG SL UD PRN for CHEST PAIN, (Reported) Omeprazole 40 Mg Capsule.dr, 40 MG PO DAILY, (Reported) Polyethylene Glycol 3350 17 Gm Powd.pack, 17 GM PO DAILY PRN for CONSTIPATION- 2ND LINE, (Reported) Propranolol HCl 10 Mg Tablet, 10 MG PO BID, (Reported) HOLD IF SYSTOLIC <100 Ranolazine 500 Mg Tab.er.12h, 500 MG PO BID, (Reported) Sertraline HCl 25 Mg Tablet, 25 MG PO DAILY, (Reported) Warfarin Sodium 2 Mg Tablet, 2 MG PO 1800, (Reported) Patient Home Medication List Home Medication List Reviewed: Yes Constitutional: no symptoms reported Eyes: No Symptoms Reported Ears, Nose, Mouth, Throat: no symptoms reported Respiratory: no symptoms reported Cardiovascular: no symptoms reported Gastrointestinal: see HPI Genitourinary: see HPI Musculoskeletal: no symptoms reported Skin: no symptoms reported Psychiatric/Neurological: See HPI Endocrine: See HPI Hematologic/Lymphatic: No Symptoms Reported Past Cldvseh-Iaqxgm-Znmzey Hx Patient Social History Alcohol Use: Denies Use Recreational Drug Use: No Smoking Status: Former Smoker Type Used: Cigarettes Former Smoker, Quit: May 02, 1962 Recent Foreign Travel: No Contact w/Someone Who Travel: No Recent Infectious Disease Expo: No Recent Hopitalizations: No (unknown) Immunizations Up To Date Tetanus Booster (TDap): Unknown Seasonal Allergies Seasonal Allergies: No Surgeries History of Surgeries: Yes (PACEMAKER) Surgeries: Bladder Surgery, Gallbladder, Orthopedic, Pacemaker Respiratory History of Respiratory Disorde: Yes Respiratory Disorders: COPD Cardiovascular History of Cardiac Disorders: Yes Cardiac Disorders: Atrial Fibrillation, Coronary Artery Disease, Hypertension Neurological History of Neurological Disord: Yes Neurological Disorders: Dementia Reproductive System Hx Reproductive Disorders: No Genitourinary Genitourinary Disorders: Renal Failure, UTI-Chronic Gastrointestinal History of Gastrointestinal Di: Yes Gastrointestinal Disorders: Gastroesophageal Reflux Musculoskeletal History of Musculoskeletal Dis: No Endocrine History of Endocrine Disorders: No HEENT History of HEENT Disorders: No Cancer History of Cancer: Yes Cancer: Bladder Psychosocial History of Psychiatric Problem: Yes Behavioral Health Disorders: Bipolar, Depression Integumentary History of Skin or Integumenta: No Blood Transfusions History of Blood Disorders: No Family Medical History Family Medial History: Myocardial infarction 21 MOTHER Physical Exam Vital Signs Vital Signs - First Documented 07/18/17 06:53 Temp 95.7 Pulse 82 Resp 20 B/P (MAP) 131/76 (94) Pulse Ox 91 O2 Delivery Room Air Capillary Refill : Less Than 3 Seconds General Appearance: mild distress (Dry heaving) HEENT: PERRL/EOMI, normal ENT inspection, other (MMM) Neck: normal inspection Respiratory: lungs clear, normal breath sounds, no respiratory distress, no accessory muscle use Cardiovascular: regular rate, rhythm, no edema, no murmur Gastrointestinal: normal bowel sounds, non tender, soft Extremities: normal inspection, no pedal edema Neurologic/Psychiatric: other (Patient will respond to voice with eyes. He will track movement with his eyes. He will not follow instructions. He has some spontaneous movement of the extremities, especially on the left. He has less movement on the right. There is facial asymmetry but drip is not pronounced. Although patient has less movement on the right, he does withdraw to painful stimuli) Skin: normal color, warm/dry Progress/Results/Core Measures Results/Orders Lab Results Laboratory Tests Test 07/18/17 06:35 07/18/17 06:52 07/18/17 08:28 Range/Units White Blood Count 10.6 4.3-11.0 10^3/uL Red Blood Count 4.89 4.35-5.85 10^6/uL Hemoglobin 12.9 L 13.3-17.7 G/DL Hematocrit 39 L 40-54 % Mean Corpuscular Volume 79 L 80-99 FL Mean Corpuscular Hemoglobin 26 25-34 PG Mean Corpuscular Hemoglobin Concent 33 32-36 G/DL Red Cell Distribution Width 16.5 H 10.0-14.5 % Platelet Count 295 130-400 10^3/uL Mean Platelet Volume 9.6 7.4-10.4 FL Neutrophils (%) (Auto) 90 H 42-75 % Lymphocytes (%) (Auto) 7 L 12-44 % Monocytes (%) (Auto) 2 0-12 % Eosinophils (%) (Auto) 0 0-10 % Basophils (%) (Auto) 0 0-10 % Neutrophils # (Auto) 9.6 H 1.8-7.8 X 10^3 Lymphocytes # (Auto) 0.8 L 1.0-4.0 X 10^3 Monocytes # (Auto) 0.2 0.0-1.0 X 10^3 Eosinophils # (Auto) 0.0 0.0-0.3 10^3/uL Basophils # (Auto) 0.0 0.0-0.1 10^3/uL Neutrophils % (Manual) 93 % Lymphocytes % (Manual) 6 % Monocytes % (Manual) 1 % Poikilocytosis SLIGHT Anisocytosis SLIGHT Microcytosis SLIGHT Crenated Cell SLIGHT Elliptocytes SLIGHT Prothrombin Time 42.1 H 12.2-14.7 SEC INR Comment 4.5 H 0.8-1.4 Activated Partial Thromboplast Time 80 H 24-35 SEC D-Dimer 1.14 H 0.00-0.49 UG/ML Sodium Level 134 L 135-145 MMOL/L Potassium Level 4.1 3.6-5.0 MMOL/L Chloride Level 104 98-107 MMOL/L Carbon Dioxide Level 19 L 21-32 MMOL/L Anion Gap 11 5-14 MMOL/L Blood Urea Nitrogen 13 7-18 MG/DL Creatinine 1.43 H 0.60-1.30 MG/DL Estimat Glomerular Filtration Rate 47 BUN/Creatinine Ratio 9 Glucose Level 309 H 70-105 MG/DL Calcium Level 9.7 8.5-10.1 MG/DL Total Bilirubin 1.1 H 0.1-1.0 MG/DL Aspartate Amino Transf (AST/SGOT) 25 5-34 U/L Alanine Aminotransferase (ALT/SGPT) 15 0-55 U/L Alkaline Phosphatase 110 40-136 U/L Troponin I < 0.30 <0.30 NG/ML Total Protein 9.0 H 6.4-8.2 GM/DL Albumin 3.9 3.2-4.5 GM/DL Digoxin Level 1.09 0.80-2.00 NG/ML Urine Color YELLOW Urine Clarity CLEAR Urine pH 6 5-9 Urine Specific [place] 1.010 L 1.016-1.022 Urine Protein 2+ H NEGATIVE Urine Glucose (UA) 3+ H NEGATIVE Urine Ketones 2+ H NEGATIVE Urine Nitrite NEGATIVE NEGATIVE Urine Bilirubin NEGATIVE NEGATIVE Urine Urobilinogen NORMAL NORMAL MG/DL Urine Leukocyte Esterase NEGATIVE NEGATIVE Urine RBC (Auto) 1+ H NEGATIVE Urine RBC 0-2 /HPF Urine WBC NONE /HPF Urine Crystals NONE /LPF Urine Bacteria NEGATIVE /HPF Urine Casts NONE /LPF Urine Hyaline Casts 2-5 H /LPF Urine Mucus NEGATIVE /LPF Urine Culture Indicated NO My Orders Orders - PRAVEENA HERNANDEZ MD Cbc With Automated Diff (07/18/17 06:56) Protime With Inr (07/18/17 06:56) Partial Thromboplastin Time (07/18/17 06:56) Comprehensive Metabolic Panel (07/18/17 06:56) Fibrin Degradation Products (07/18/17 06:56) Troponin I (07/18/17 06:56) Ua Culture If Indicated (07/18/17 06:56) Chest 1 View, Ap/Pa Only (07/18/17 06:56) Catheter(Urinary) Insert & Ass 03,15 (07/18/17 06:56) Ekg Tracing (07/18/17 06:56) Nothing By Mouth (07/18/17 Lunch) Accucheck Stat ONCE (07/18/17 06:56) Saline Lock/Iv-Start (07/18/17 06:56) Saline Lock/Iv-Start (07/18/17 06:56) Vital Signs Stroke Patient Q15M (07/18/17 06:56) Ct Head Wo-R/O Stroke (07/18/17 06:56) O2 (07/18/17 06:56) Intake & Output 06,14,22 (07/18/17 06:56) Monitor-Rhythm Ecg Trace Only (07/18/17 06:56) Dysphagia Screening Tool (07/18/17 06:56) Manual Differential (07/18/17 06:35) Ondansetron Injection (Zofran Injectio (07/18/17 07:15) [place] Cath Insertion (07/18/17 07:35) Digoxin (07/18/17 07:59) [place] Level (07/18/17 09:38) Hemoglobin A1c (07/18/17 09:39) Medications Given in ED Vital Signs/I&O Vital Sign - Last 12Hours 07/18/17 07/18/17 06:53 08:39 Temp 95.7 Pulse 82 62 Resp 20 20 B/P (MAP) 131/76 (94) 139/78 Pulse Ox 91 93 O2 Delivery Room Air Blood Pressure Mean: 94 Progress Note #1: Time: 09:40 Progress Note Workup was completed in the emergency room. No definite cause of his altered mental status was determined by workup. Acute or subacute CVA is still within the differential diagnoses. However, there was no CT evidence of CVA. Upon further investigation, nursing staff discussed onset of symptoms with the halfway. Last known well time was actually somewhere around 20:00 last night when he was put to bed. Patient was not woken and assessed in the night when they brought him water as they were instructed not to bother him in the night. Patient was outside the window for any interventions for stroke treatment. He was also supratherapeutic on his INR which disqualified him from thrombolytics. Patient did receive Zofran for retching. He was ultimately admitted to Dr. Kennedy with every 2 hours neuro checks per his instructions as well as blood sugar checks every 6 hours. [place] and A1c labs were ordered per Dr. Kennedy's request. Progress Note #2: Time: 13:20 Progress Note Patient was prepared for admission. Somehow he scooted himself out of the end of his bed and onto the floor despite bedrails being up and him being minimally responsive. This was not witnessed and no evidence of injury was noted on exam. However, imaging was felt appropriate since his INR was elevated. CT of the head and C-spine was obtained as well as pelvis x-ray. No acute injuries were identified. Patient will now be admitted. ECG Initial ECG Impression Date: Jul 18, 2017 Initial ECG Impression Time: 07:14 Initial ECG Rate: 70 Comment Ventricular paced rhythm with possible underlying atrial fibrillation. No acute ischemic changes. Prolonged QTC of 557. Diagnostic Imaging Diagonstic Imaging: Xray Plain Films/CT/US/NM/MRI: chest Comments Chest x-ray viewed by me and report reviewed. See report below: NAME: PRANAV LANGE [facility] REC#: [id number] PT STATUS: REG ER : 1930 PHYSICIAN: PRAVEENA HERNANDEZ MD ADMIT DATE: 07/18/17/ER Signed Date of Exam: 07/18/17 CHEST 1 VIEW, AP/PA ONLY Indication: Altered mental status. 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 Heart size and pulmonary vascularity are normal. Lungs are clear. There are no effusions or pneumothoraces. Impression: No acute abnormalities of the chest. Dictated by: Dictated on workstation # [id number] Dict: 07/18/17 0740 Trans: 07/18/17746 Interpreted by: JESSICA WINCHESTER MD Electronically signed by: JESSICA WINCHESTER MD 07/18/1747 Diagonstic Imaging: CT Plain Films/CT/US/NM/MRI: head Comments CT head viewed by me and report reviewed. See report below: NAME: PRANAV LANGE [facility] REC#: [id number] PT STATUS: REG ER : 1930 PHYSICIAN: PRAVEENA HERNANDEZ MD ADMIT DATE: 07/18/17/ER Signed Date of Exam: 07/18/17 CT HEAD WO-R/O STROKE Indication: Altered mental status CT head without contrast There is generalized atrophy. There are no masses or hemorrhages. There are no extra-axial fluid collections. Impression: Diffuse cerebral degeneration. No acute abnormality seen in the head. There is no CT evidence for acute infarct. Dictated by: Dictated on workstation # [id number] Dict: 07/18/1745 Trans: 07/18/17745 Interpreted by: JESSICA WINCHESTER MD Electronically signed by: JESSICA WINCHESTER MD 07/18/1746 Diagonstic Imaging: CT Plain Films/CT/US/NM/MRI: c-spine, head Comments CT head and cervical spine report reviewed. See report below: NAME: PRANAV LANGE [facility] REC#: [id number] PT STATUS: ADM Kim : 1930 PHYSICIAN: PRAVEENA HERNANDEZ MD ADMIT DATE: 07/18/17/4TH Draft Date of Exam:07/18/17 CT HEAD/CERVICAL SPINE WO CLINICAL INDICATION: Patient fell off of bed in ER. Patient is a poor historian. EXAM: Head CT without IV contrast. Axial CT scan of the cervical spine with sagittal and coronal reformations. COMPARISON: Head CT without contrast dated 07/18/2017. Thyroid ultrasound dated 09/01/2016. FINDINGS: Head CT: There is no evidence of acute cerebral infarct, intracranial hemorrhage, or gross mass effect. There are focal and patchy areas of low-attenuation white matter changes seen throughout both cerebral hemispheres, likely representing chronic small vessel ischemic disease. The brain parenchymal volume appears appropriate for patient's age. There is normal stoll-white matter distinction. There is no significant midline shift or herniation. There is no evidence of hydrocephalus. The basal cisterns are unremarkable. Stable reconstructive surgery of the floor of the right orbital wall with plate seen. Otherwise, the skull, extracranial soft tissue, and orbits are unremarkable. There is mild mucosal thickening involving the right maxillary sinus. Temporal bones show no significant abnormality. Cervical spine: Compression deformity involving the right side of the C7 vertebral body with no cortical disruption seen. This may represent a chronic fracture. There is no concern for acute cervical spine fracture. There is grade 1 anterolisthesis of C4 on C5 with no pars defect seen and is likely degenerative. There is multilevel cervical spine degenerative disease with hypertrophic spurs and facet arthropathy. Pwhdtewd-nq-dwrbwa multilevel loss of intervertebral disc height is seen. Thyroid gland is slightly heterogeneous with nodules noted. The largest measurable nodule is 1.8 cm on the left thyroid gland region. Limited visualization upper lung estrada are clear. IMPRESSION: 1: There is no evidence of acute intracranial process. There is no intracranial hemorrhage or skull fracture. 2: There is no evidence of acute cervical spine fracture. There is a chronic-appearing fracture of the C7 vertebral body. 3: There is multilevel cervical spine degenerative disease including grade 1 anterolisthesis of C4 on C5. 4: Chronic small vessel ischemic disease. 5: Heterogeneous thyroid gland including a roughly 1.8 cm low-density nodule in the left thyroid gland. Patient was noted to have nodules on the comparison thyroid ultrasound. Dictated on workstation # [id number] Dict: 07/18/17 1215 Trans: 07/18/17 1245 [id number] Interpreted by: MICHAEL DE LA VEGA MD Diagonstic Imaging: Xray Plain Films/CT/US/NM/MRI: pelvis Comments NAME: PRANAV LANGE [facility] REC#: [id number] PT STATUS: ADM Kim : 1930 PHYSICIAN: PRAVEENA HERNANDEZ MD ADMIT DATE: 07/18/17/4TH Signed Date of Exam: 07/18/17 PELVIS INDICATION: Fell out of a bed. Time of exam: 12:06 PM Single AP view of the pelvis was obtained. Both hips are rotated, limiting evaluation of the femoral necks. Femoral acetabular alignment is normal bilaterally, without evidence of dislocation. The rami are intact. The SI joints and symphysis are non-widened. IMPRESSION: No acute bony abnormality is identified. If there is concern for acute femoral neck fracture, dedicated hip films could be obtained for further evaluation. Dictated by: Dictated on workstation # [id number] Dict: 07/18/17 1155 Trans: 07/18/17 1342 Interpreted by: SUKH CARBAJAL MD Electronically signed by: SUKH CARBAJAL MD 07/18/17 1342 Reviewed: Reviewed by Me Departure Communication (Admissions) Time/Spoke to Admitting Phy: 09:40 Communication Case reviewed with Dr. Kennedy who agrees with admission. Impression Impression: Primary Impression: Altered mental status Qualified Codes: R41.82 - Altered mental status, unspecified Additional Impressions: Supratherapeutic INR Nausea and vomiting Qualified Codes: R11.2 - Nausea with vomiting, unspecified Incontinence Qualified Codes: R32 - Unspecified urinary incontinence Hyperglycemia Disposition: ADMITTED INPATIENT Condition: Stable Admissions Decision to Admit Reason: Admit from ER (General) Decision to Admit/Date: Jul 18, 2017 Time/Decision to Admit Time: 09:20 Departure-Patient Inst. Referrals: EUGENE KENNEDY DO (PCP/Family) Primary Care Physician PRAVEENA HERNANDEZ MD Jul 18, 2017 07:54
[2017-07-18 08:28] LABS: ANISOCYTOSIS SLIGHT; LYMPHOCYTES % (MANUAL) 6 %; MICROCYTOSIS SLIGHT; MONOCYTES % (MANUAL) 1 %; NEUTROPHILS % (MANUAL) 93 %; POIKILOCYTOSIS SLIGHT
[2017-07-18 08:29] LABS: CRENATED RBC SLIGHT; ELLIPT/OVALOCYTES SLIGHT
[2017-07-18 08:39] VITALS: BP 139/78
[2017-07-18 08:50] LABS: BILIRUBIN,URINE NEGATIVE (NEGATIVE); CLARITY,URINE CLEAR; COLOR,URINE YELLOW; GLUCOSE, URINE (UA) 3+ (NEGATIVE); KETONES,URINE 2+ (NEGATIVE); LEUKOCYTE ESTERASE ,URINE NEGATIVE (NEGATIVE); NITRITE,URINE NEGATIVE (NEGATIVE); PH,URINE 6 (5-9); PROTEIN,URINE 2+ (NEGATIVE); UROBILINOGEN,URINE NORMAL (NORMAL)
[2017-07-18 09:23] LABS: BACTERIA,URINE NEGATIVE /HPF; RBC,URINE 0-2 /HPF
--- OUTSIDE RECORDS SUMMARY | 2017-07-18 11:40 | XMS REPORT | Clinical Summary ---
Author Author [facility] Organization [facility] Address Unknown Phone Unavailable Care Team Providers Care Internet Sales Consultant Name Role Phone Cesario Avendaño MD Unavailable Johnathan Dangelo MD Unavailable Jarret Goodman MD PCP Source Comments Some departments are not documenting in the electronic medical record. If you do not see the information that you expected, contact Release of Information in the Health Information Management department at [phone] for further assistance in locating additional records.[facility] Allergies Active Allergy Reactions Severity [...]
--- OUTSIDE RECORDS SUMMARY | 2017-07-18 11:52 | XMS REPORT | Continuity of Care Document ---
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 12/11/2015 AB GARCIA MD Ot I48.91 UNSPECIFIED ATRIAL FIBRILLATION 12/11/2015 AB GARCIA MD Ot R07.9 CHEST PAIN, UNSPECIFIED 12/15/2015 AB GARCIA MD Ot E78.5 HYPERLIPIDEMIA, UNSPECIFIED 12/15/2015 AB GARCIA MD Ot I10 ESSENTIAL (PRIMARY) HYPERTENSION 12/15/2015 AB GARCIA MD Ot 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 12/15/2015 AB GARCIA MD [...] MD Ot 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 12/15/2015 AB GARCIA MD Ot I48.91 UNSPECIFIED ATRIAL FIBRILLATION 12/15/2015 AB GARCIA MD Ot R07.9 CHEST PAIN, UNSPECIFIED 12/16/2015 AB GARCIA MD Ot E78.5 HYPERLIPIDEMIA, UNSPECIFIED 12/16/2015 AB GARCIA MD Ot I10 ESSENTIAL (PRIMARY) HYPERTENSION 12/16/2015 AB GARCIA MD Ot 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 12/16/2015 AB GARCIA MD Ot I48.91 UNSPECIFIED ATRIAL FIBRILLATION 12/16/2015 AB GARCIA MD Ot R07.9 CHEST PAIN, UNSPECIFIED 01/01/2016 AB GARCIA MD Ot E78.5 HYPERLIPIDEMIA, UNSPECIFIED 01/01/2016 AB GARCIA MD Ot I10 ESSENTIAL (PRIMARY) HYPERTENSION 01/01/2016 AB GARCIA MD Ot 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 01/01/2016 AB GARCIA MD [...] MD Ot 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 01/02/2016 AB GARCIA MD [...] MD Ot 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 01/02/2016 AB GARCIA MD [...] MD Ot I25.10 ATHSCL HEART DISEASE OF [place] CORONARY 01/08/2016 JASWINDER CRAWFORD MD Ot I48.91 UNSPECIFIED ATRIAL FIBRILLATION 01/08/2016 JASWINDER CRAWFORD MD Ot J44.9 CHRONIC OBSTRUCTIVE PULMONARY DISEASE, U 01/08/2016 JASWINDER CRAWFORD MD Ot K21.9 GASTRO-ESOPHAGEAL REFLUX DISEASE WITHOUT 01/08/2016 JASWINDER CRAWFORD MD Ot K40.90 UNIL INGUINAL HERNIA, W/O OBST OR GANGR, 01/08/2016 JASWINDER CRAWFORD MD Ot Z11.2 ENCOUNTER FOR SCREENING FOR OTHER BACTER 01/08/2016 JASWINDER CRAWFORD MD Ot Z79.01 ALUMINUM HYDROXIDE PROCESS OPERATOR (CURRENT) USE OF ANTICOAGULANT 01/08/2016 JASWINDER CRAWFORD MD Ot Z79.899 OTHER ALUMINUM HYDROXIDE PROCESS OPERATOR (CURRENT) DRUG THERAPY 01/08/2016 JASWINDER CRAWFORD MD Ot Z87.891 PERSONAL HISTORY OF NICOTINE DEPENDENCE 01/08/2016 JASWINDER CRAWFORD MD Ot E78.5 HYPERLIPIDEMIA, UNSPECIFIED 01/08/2016 JASWINDER CRAWFORD MD Ot I10 ESSENTIAL (PRIMARY) HYPERTENSION 01/08/2016 JASWINDER CRAWFORD MD Ot I25.10 ATHSCL HEART DISEASE OF [place] CORONARY 01/08/2016 JASWINDER CRAWFORD MD Ot I48.91 UNSPECIFIED ATRIAL FIBRILLATION 01/08/2016 JASWINDER CRAWFORD MD Ot J44.9 CHRONIC OBSTRUCTIVE PULMONARY DISEASE, U 01/08/2016 JASWINDER CRAWFORD MD Ot K21.9 GASTRO-ESOPHAGEAL REFLUX DISEASE WITHOUT 01/08/2016 JASWINDER CRAWFORD MD Ot K40.90 UNIL INGUINAL HERNIA, W/O OBST OR GANGR, 01/08/2016 JASWINDER CRAWFORD MD Ot Z11.2 ENCOUNTER FOR SCREENING FOR OTHER BACTER 01/08/2016 JASWINDER CRAWFORD MD Ot Z79.01 FPC (CURRENT) USE OF ANTICOAGULANT 01/08/2016 JASWINDER CRAWFORD MD Ot Z79.899 OTHER ALUMINUM HYDROXIDE PROCESS OPERATOR (CURRENT) DRUG THERAPY 01/08/2016 JASWINDER CRAWFORD MD Ot Z87.891 PERSONAL HISTORY OF NICOTINE DEPENDENCE 01/09/2016 JASWINDER CRAWFORD MD Ot E78.5 HYPERLIPIDEMIA, UNSPECIFIED 01/09/2016 JASWINDER CRAWFORD MD Ot I10 ESSENTIAL (PRIMARY) HYPERTENSION 01/09/2016 JASWINDER CRAWFORD MD Ot I25.10 ATHSCL HEART DISEASE OF [place] CORONARY 01/09/2016 JASWINDER CRAWFORD MD Ot I48.91 UNSPECIFIED ATRIAL FIBRILLATION 01/09/2016 JASWINDER CRAWFORD MD Ot J44.9 CHRONIC OBSTRUCTIVE PULMONARY DISEASE, U 01/09/2016 JASWINDER CRAWFORD MD Ot K21.9 GASTRO-ESOPHAGEAL REFLUX DISEASE WITHOUT 01/09/2016 JASWINDER CRAWFORD MD Ot K40.90 UNIL INGUINAL HERNIA, W/O OBST OR GANGR, 01/09/2016 JASWINDER CRAWFORD MD Ot Z11.2 ENCOUNTER FOR SCREENING FOR OTHER BACTER 01/09/2016 JASWINDER CRAWFORD MD Ot Z79.01 ALUMINUM HYDROXIDE PROCESS OPERATOR (CURRENT) USE OF ANTICOAGULANT 01/09/2016 JASWINDER CRAWFORD MD Ot Z79.899 OTHER ALUMINUM HYDROXIDE PROCESS OPERATOR (CURRENT) DRUG THERAPY 01/09/2016 JASWINDER CRAWFORD MD [...] MD Ot 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 01/19/2016 JOSE VICENTE, AB [...] BIPOLAR DISORDER, UNSPECIFIED 01/28/2016 KARLEYDER , EUGENE Barnhart Ot I10 ESSENTIAL (PRIMARY) HYPERTENSION 01/28/2016 MARCIA GLEASON, EUGENE Barnhatr Ot I25.10 ATHSCL HEART DISEASE OF [place] CORONARY 01/28/2016 MARCIA GLEASON, EUGENE Barnhart Ot [...] Barnhart Ot I25.10 ATHSCL HEART DISEASE OF [place] CORONARY 01/29/2016, EUGENE Barnhart Ot J44.9 CHRONIC OBSTRUCTIVE PULMONARY DISEASE, U 01/29/2016 SARADER DO, EUGENE Barhnart Ot K20.9 ESOPHAGITIS, UNSPECIFIED 01/29/2016 GELLENDER DO, [...] MD Ot 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 04/30/2016 AB GARCIA MD [...] Ot M47.9 SPONDYLOSIS, UNSPECIFIED 04/30/2016 COSMO CREWS SIDING APPLICATOR Ot R10.9 UNSPECIFIED ABDOMINAL PAIN 04/30/2016 COSMO CREWS APRN Ot 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, NOT ELSEWHERE CLASSIFIED 04/30/2016 COSMO CREWS APRN Ot Z79.899 OTHER ALUMINUM HYDROXIDE PROCESS OPERATOR (CURRENT) DRUG THERAPY 05/19/2016 COSMO CRWES APRN Ot I10 ESSENTIAL (PRIMARY) HYPERTENSION 05/19/2016 COSMO CREWS APRN Ot J44.9 CHRONIC OBSTRUCTIVE PULMONARY DISEASE, U 05/19/2016 COSMO CREWS APRN Ot K57.32 DVTRCLI OF LG INT W/O PERFORATION OR ABS 05/19/2016 COSMO CREWS SIDING APPLICATOR Ot M47.9 SPONDYLOSIS, UNSPECIFIED 05/19/2016 COSMO CREWS SIDING APPLICATOR Ot R10.9 UNSPECIFIED ABDOMINAL PAIN 05/19/2016 COSMO CREWS SIDING APPLICATOR Ot 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, NOT ELSEWHERE CLASSIFIED 05/19/2016 COSMO CREWS SIDING APPLICATOR Ot Z79.899 OTHER FPC (CURRENT) DRUG THERAPY 05/25/2016 MARY VICENTE, PRAVEENA Dalal Ot F03.90 UNSPECIFIED DEMENTIA WITHOUT BEHAVIORAL 05/25/2016 MARY VICENTE, PRAVEENA Dalal Ot I10 ESSENTIAL (PRIMARY) HYPERTENSION 05/25/2016 PRAVEENA HERNANDEZ MD, Ot I25.10 ATHSCL HEART DISEASE OF [place] CORONARY 05/25/2016 PRAVEENA HERNANDEZ MD Ot I25.2 OLD MYOCARDIAL INFARCTION 05/25/2016 PRAVEENA HERNANDEZ MD Ot I48.2 CHRONIC ATRIAL FIBRILLATION 05/25/2016 PRAVEENA HERNANDEZ MD Ot R07.9 CHEST PAIN, UNSPECIFIED 05/25/2016 PRAVEENA HERNANDEZ MD, Ot Z79.01 ALUMINUM HYDROXIDE PROCESS OPERATOR (CURRENT) USE OF ANTICOAGULANT 05/25/2016 PRAVEENA HERNANDEZ MD, Ot Z79.899 OTHER ALUMINUM HYDROXIDE PROCESS OPERATOR (CURRENT) DRUG THERAPY 05/25/2016 PRAVEENA HERNANDEZ MD, Ot Z95.0 PRESENCE OF CARDIAC PACEMAKER 06/09/2016 EUGENE KENNEDY DO Ot N28.9 DISORDER OF KIDNEY AND URETER, UNSPECIFI 06/09/2016 EUGENE KENNEDY DO Ot R10.32 LEFT LOWER QUADRANT PAIN 06/09/2016 AB GARCIA MD Ot E78.5 HYPERLIPIDEMIA, UNSPECIFIED 06/09/2016 AB GARCIA MD Ot I10 ESSENTIAL (PRIMARY) HYPERTENSION 06/09/2016 AB GARCIA MD Ot 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 06/09/2016 AB GARCIA MD, [...] MD Ot 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 06/17/2016 AB GARCIA MD [...] Z95.0 PRESENCE OF CARDIAC PACEMAKER 06/30/2016 EUGENE AUSTIN MD Ot R07.9 CHEST PAIN, [...] OF CARDIAC PACEMAKER 08/24/2016 GELLENDER DO, EUGENE Barnhart Ot M47.812 SPONDYLOSIS [...] Procedures Code Description Performed By Performed On 0XDC9ST EXCISION OF CECUM, ENDO, DIAGN 01/26/2016 3BNN2SD EXCISION OF ASCENDING COLON, ENDO, DIAGN 01/26/2016 8SPH9EE EXCISION OF TRANSVERSE COLON, ENDO, DIAG 01/26/2016 8YCT0WZ EXCISION OF DESCENDING COLON, ENDO, DIAG 01/26/2016 7PNS1CC EXCISION OF SIGMOID COLON , ENDO, DIAGN 01/26/2016 [id number] INSPECTION OF UPPER INTESTINAL TRACT, EN 01/26/2016 [...] culture - 01/21/16 21:10 Bacterial urine culture [id number] NRG COLONY COUNT >100,000/ML NRG FTX;REPORTABLE SENSITIVITY [...] CELLS LEUKO REDUCED AS1 TRANSFUSED 01/25/16 0305 [facility] Blood type T Indirect antibody screen panel - 01/24/16 15:15 ABO+Rh group AP NRG Transfusion band number [id number] NR Blood group antibody screen NEGATIVE NR [...] Status Pt. Type Provider Facility Loc./Unit Complaint [id number] 10/11/2016 09:58:00 10/11/2016 13:10:00 DIS Outpatient JASWINDER CRAWFORD MD [facility] ENDO 6 MTH RE-CHECK TUBULAR TUBULOVILLOUS ADENOMATOSIS [id number] 10/07/2016 06:15:00 10/07/2016 23:59:59 CLS Outpatient JASWINDER CRAWFORD MD [facility] PREOP 6 MONTH RE CHECK [id number] 09/20/2016 10:19:00 09/20/2016 23:59:59 CLS Outpatient EUGENE KENNEDY DO [facility] RAD TB MONITOR TEST [id number] 09/10/2016 08:29:00 09/10/2016 23:59:59 CLS Outpatient SARAENID GLEASONEUGENE [facility] RAD THYROID MASS [id number] 09/08/2016 12:59:00 09/08/2016 23:59:59 CLS Outpatient SARAENID GLEASONEUGENE [facility] RAD THYROID MASS [id number] 09/01/2016 12:11:00 09/01/2016 23:59:59 CLS Outpatient SARAENID GLEASON EUGENE Barnahrt [facility] RAD THYROID NODULES [id number] 08/20/2016 09:03:00 08/20/2016 23:59:59 CLS Outpatient EUGENE KENNEDY DO [place] [facility] RAD NECK PAIN [id number] 06/30/2016 07:53:00 06/30/2016 23:59:59 CLS Outpatient EUGENE AUSTIN MD [facility] CARD CHEST PAIN SYNDROME [id number] 06/09/2016 11:58:00 06/09/2016 23:59:59 CLS Outpatient EUGENE AUSTIN MD [facility] CARD CHEST PAIN SYNDROME [id number] 05/25/2016 10:06:00 05/25/2016 12:17:00 DIS Emergency PRAVEENA HERNANDEZ MD [facility] ER CHEST PAIN [id number] 04/30/2016 17:59:00 04/30/2016 21:53:00 DIS Emergency COSMO CREWS APRN [facility] ER R SIDE ABD PAIN [id number] 01/21/2016 22:10:00 01/29/2016 15:30:00 DIS Inpatient EUGENE KENNEDY DO [facility] 4TH UTI,SEPSIS [id number] 01/07/2016 08:45:00 01/08/2016 12:00:00 DIS Outpatient JASWINDER CRAWFORD MD [facility] BILATERAL INGUINAL HERNIA [id number] 01/06/2016 15:20:00 01/06/2016 15:53:00 DIS Outpatient JASWINDER CRAWFORD MD [facility] PREOP BILATERAL INGUINAL HERNIA [id number] 12/10/2015 11:17:00 12/10/2015 23:59:59 CLS Outpatient JOSE VICENTE, AB [place] [facility] CARD A-FIB,ANGINA PECTORIS [id number] 08/30/2015 18:48:00 08/30/2015 21:03:00 DIS Emergency BARRETT VICENTE, ARABELLA Barnhart [facility] ER CHEST PAIN [id number] 04/02/2015 14:19:00 04/02/2015 23:59:59 CLS Outpatient EUGENE KENNEDY DO [facility] RAD LLQ PAIN,RENAL INSUFF
--- NOTE | 2017-07-18 11:58 | Diagnostic Imaging Report ---
INDICATION: Fell out of a bed. Time of exam: 12:06 PM Single AP view of the pelvis was obtained. Both hips are rotated, limiting evaluation of the femoral necks. Femoral acetabular alignment is normal bilaterally, without evidence of dislocation. The rami are intact. The SI joints and symphysis are non-widened. IMPRESSION: No acute bony abnormality is identified. If there is concern for acute femoral neck fracture, dedicated hip films could be obtained for further evaluation. Dictated by: Dictated on workstation # [id number]
--- NOTE | 2017-07-18 12:45 | Diagnostic Imaging Report ---
CLINICAL INDICATION: Patient fell off of bed in ER. Patient is a poor historian. EXAM: Head CT without IV contrast. Axial CT scan of the cervical spine with sagittal and coronal reformations. COMPARISON: Head CT without contrast dated 07/18/2017. Thyroid ultrasound dated 09/01/2016. FINDINGS: Head CT: There is no evidence of acute cerebral infarct, intracranial hemorrhage, or gross mass effect. There are focal and patchy areas of low-attenuation white matter changes seen throughout both cerebral hemispheres, likely representing chronic small vessel ischemic disease. The brain parenchymal volume appears appropriate for patient's age. There is normal stoll-white matter distinction. There is no significant midline shift or herniation. There is no evidence of hydrocephalus. The basal cisterns are unremarkable. Stable reconstructive surgery of the floor of the right orbital wall with plate seen. Otherwise, the skull, extracranial soft tissue, and orbits are unremarkable. There is mild mucosal thickening involving the right maxillary sinus. Temporal bones show no significant abnormality. Cervical spine: Compression deformity involving the right side of the C7 vertebral body with no cortical disruption seen. This may represent a chronic fracture. There is no concern for acute cervical spine fracture. There is grade 1 anterolisthesis of C4 on C5 with no pars defect seen and is likely degenerative. There is multilevel cervical spine degenerative disease with hypertrophic spurs and facet arthropathy. Ybkdrbtf-yp-qihcqb multilevel loss of intervertebral disc height is seen. Thyroid gland is slightly heterogeneous with nodules noted. The largest measurable nodule is 1.8 cm on the left thyroid gland region. Limited visualization upper lung estrada are clear. IMPRESSION: 1: There is no evidence of acute intracranial process. There is no intracranial hemorrhage or skull fracture. 2: There is no evidence of acute cervical spine fracture. There is a chronic-appearing fracture of the C7 vertebral body. 3: There is multilevel cervical spine degenerative disease including grade 1 anterolisthesis of C4 on C5. 4: Chronic small vessel ischemic disease. 5: Heterogeneous thyroid gland including a roughly 1.8 cm low-density nodule in the left thyroid gland. Patient was noted to have nodules on the comparison thyroid ultrasound. Dictated by: Dictated on workstation # [id number]
[2017-07-18 13:40] VITALS: BP 158/68
[2017-07-18] MEDS ORDERED: LTH450TCR PO (13:51)
[2017-07-18] MEDS ORDERED: OMEP40CA36 PO (13:51)
[2017-07-18] MEDS ORDERED: ATOR40TA70 PO (13:51)
[2017-07-18] MEDS ORDERED: ACET325T38 PO (13:51)
[2017-07-18] MEDS ORDERED: MELA5TAB14 PO (13:51)
[2017-07-18] MEDS ORDERED: BUSP10TA95 PO (13:51)
[2017-07-18] MEDS ORDERED: CAPT25TA3 PO (13:51)
[2017-07-18] MEDS ORDERED: WARF-47 PO (13:51)
[2017-07-18] MEDS ORDERED: inSUlin (REGULAR) HUMAN 1 UNIT/0.01 ML (CHARGE PER UNIT) SC SCH (14:30)
[2017-07-18] MEDS: NS IV 1000 ML 1,000 ML IV SCH ×2 (15:10→23:04)
[2017-07-18 15:54] VITALS: BP 136/63
[2017-07-18] MEDS: inSUlin (REGULAR) HUMAN 1 UNIT/0.01 ML (CHARGE PER UNIT) SC SCH (18:34)
--- NOTE | 2017-07-18 18:57 | History & Physicial ---
History of Present Illness History of Present Illness Reason for visit/HPI Patient is a resident of senior care. I received a call stating that the patient unresponsive and had malignant hypertension. Patient sent out to emergency room. Patient had altered mental status. Patient had nausea and vomiting. Hypoglycemia. History of bipolar. Incontinence. Patient unresponsive in emergency room. Now patient opens his eyes and does say a few words and does move. Date of Admission Jul 18, 2017 at 10:26 Time Seen by Provider: 18:45 I consulted on this patient on 07/18/17 18:51 Attending Physician Jono Kennedy DO Admitting Physician Jono Kennedy DO Consult Allergies and Home Medications Allergies Coded Allergies: tetanus immune globulin (Unverified Allergy, Unknown, 04/30/16) Home Medications Acetaminophen 325 Mg Tablet, 650 MG PO Q4H PRN for PAIN-MILD, (Reported) TAKES 2 (325MG) TABLETS Atorvastatin Calcium 40 Mg Tablet, 40 MG PO HS, (Reported) Buspirone HCl 10 Mg Tablet, 2 TAB PO TID, (Reported) TAKES 2 (10MG) TABLETS Captopril 25 Mg Tablet, 50 MG PO BID, (Reported) HOLD AND NOTIFY PCP FOR BP LESS THAN 100/60 OR PULSE LESS THAN 60 Dextran 70/Hypromellose 1 Each Droperette, 1 DROP OU PRN PRN for DRY EYES, ( Reported) Digoxin 125 Mcg Tablet, 125 MCG PO DAILY, (Reported) HOLD DOSE IF <60 AND NOTIFY PCP Diltiazem HCl 240 Mg Cap.er.deg, 240 MG PO DAILY, (Reported) HOLD IF SYSTOLIC <100 Docusate Sodium 100 Mg Capsule, 100 MG PO Q12H PRN for CONSTIPATION-1ST LINE, ( Reported) Donepezil HCl 5 Mg Tablet, 5 MG PO HS, (Reported) Fluticasone/Salmeterol 12 Gm Hfa.aer.ad, 2 PUFF INH BID, (Reported) [place] Carbonate 450 Mg Tab, 450 MG PO DAILY, (Reported) Melatonin 5 Mg Tablet, 5 MG PO HS, (Reported) Nitroglycerin 0.4 Mg Tab.subl, 0.4 MG SL UD PRN for CHEST PAIN, (Reported) Omeprazole 40 Mg Capsule.dr, 40 MG PO DAILY, (Reported) Polyethylene Glycol 3350 17 Gm Powd.pack, 17 GM PO DAILY PRN for CONSTIPATION- 2ND LINE, (Reported) Propranolol HCl 10 Mg Tablet, 10 MG PO BID, (Reported) HOLD IF SYSTOLIC <100 Ranolazine 500 Mg Tab.er.12h, 500 MG PO BID, (Reported) Sertraline HCl 25 Mg Tablet, 25 MG PO DAILY, (Reported) Warfarin Sodium 2 Mg Tablet, 2 MG PO 1800, (Reported) Patient Home Medication List Home Medication List Reviewed: Yes Past Yzglfta-Ykrjnq-Jbzsdg Hx Patient Social History Employed/Student: unemployed Alcohol Use: Denies Use Recreational Drug Use: No Smoking Status: Former Smoker Former Smoker, Quit: May 02, 1962 Type Used: Cigarettes Recent Foreign Travel: No Contact w/other who traveled: No Recent Hopitalizations: No (unknown) Recent Infectious Disease Expo: No Immunizations Up To Date Tetanus Booster (TDap): Unknown Date of Pneumonia Vaccine: May 07, 2016 Date of Influenza Vaccine: Feb 22, 2017 Seasonal Allergies Seasonal Allergies: No Surgeries Yes (PACEMAKER) Bladder Surgery, Gallbladder, Orthopedic, Pacemaker Respiratory Yes Cardiovascular Yes Atrial Fibrillation, Coronary Artery Disease, Hypertension Neurological Yes Dementia Reproductive System Hx Reproductive Disorders: No Genitourinary Renal Failure, UTI-Chronic Gastrointestinal Yes Gastroesophageal Reflux Musculoskeletal No Endocrine History of Endocrine Disorders: No HEENT History of HEENT Disorders: No Cancer Yes Bladder Psychosocial History of Psychiatric Problem: Yes Behavioral Health Disorders: Bipolar, Depression Integumentary History of Skin or Integumenta: No Blood Transfusions History of Blood Disorders: No Family Medical History Family Hx: Myocardial infarction 21 MOTHER Constitutional: malaise, weakness, other (Altered mental status) EENTM: no symptoms reported Respiratory: no symptoms reported Cardiovascular: no symptoms reported Gastrointestinal: no symptoms reported Physical Exam Vital Signs Vital Signs - First Documented 07/18/17 06:53 Temp 95.7 Pulse 82 Resp 20 B/P (MAP) 131/76 (94) Pulse Ox 91 O2 Delivery Room Air Capillary Refill : Less Than 3 Seconds General Appearance: No Apparent Distress, WD/WN Eyes: Bilateral Eye Normal Inspection HEENT: Normal ENT Inspection Neck: Normal Inspection Respiratory: Lungs Clear, No Accessory Muscle Use, No Respiratory Distress Cardiovascular: Regular Rate, Rhythm Gastrointestinal: Non Tender, Soft Assessment/Plan Admission Diagnosis Acute mental status change. Supratherapeutic INR. Nausea and vomiting. Hyperglycemia. Bipolar. Incontinence. Patient not communicating well. Patient not to take oral medicine for feeding till tomorrow until he is more awake Admission Status: Observation Clinical Quality Measures DVT/VTE Risk/Contraindication: Risk Factor Score Per Nursin RFS Level Per Nursing on Admit: 4+=Very High JONO KENNEDY DO Jul 18, 2017 18:57
[2017-07-19] VITALS (14 sets, daily range): BP systolic 151–194; BP diastolic 68–99
[2017-07-19] MEDS: inSUlin (REGULAR) HUMAN 1 UNIT/0.01 ML (CHARGE PER UNIT) SC SCH ×5 (00:06→21:18)
[2017-07-19] MEDS ORDERED: hydrALAZINE (APESOLINE) 20 MG/ML VIAL IV PRN (01:30)
[2017-07-19] MEDS ORDERED: ENALAPRILAT 2.5 MG/2 ML (VASOTEC) VIAL IV SCH ×2 (04:00→10:00)
[2017-07-19] MEDS: ONDANSETRON 4 MG/2 ML (SDV) Z0FRAN IVP PRN ×3 (04:19→17:28)
[2017-07-19 06:30] LABS: BASOPHILS % (AUTO) 0 % (0-10); EOSINOPHILS % (AUTO) 0 % (0-10); HEMATOCRIT 36 % (40-54); HEMOGLOBIN 11.3 G/DL (13.3-17.7); LYMPHOCYTES # (AUTO) 0.7 X 10^3 (1.0-4.0); LYMPHOCYTES % (AUTO) 4 % (12-44); MEAN CORPUSCULAR HEMOGLOBIN 26 PG (25-34); MEAN CORPUSCULAR HGB CONC 31 G/DL (32-36); MEAN CORPUSCULAR VOLUME 83 FL (80-99); MEAN PLATELET VOLUME 10.6 FL (7.4-10.4); MONOCYTES # (AUTO) 0.7 X 10^3 (0.0-1.0); MONOCYTES % (AUTO) 4 % (0-12); NEUTROPHILS # (AUTO) 16.9 X 10^3 (1.8-7.8); NEUTROPHILS % (AUTO) 93 % (42-75); PLATELET COUNT 288 10^3/uL (130-400); RED BLOOD COUNT 4.32 10^6/uL (4.35-5.85); RED CELL DISTRIBUTION WIDTH 16.7 % (10.0-14.5); WHITE BLOOD COUNT 18.2 10^3/uL (4.3-11.0)
[2017-07-19 06:42] LABS: ALBUMIN 3.1 GM/DL (3.2-4.5); BILIRUBIN,TOTAL 1.3 MG/DL (0.1-1.0); CALCIUM 9.1 MG/DL (8.5-10.1); CREATININE SERUM 1.56 MG/DL (0.60-1.30); POTASSIUM 3.7 MMOL/L (3.6-5.0); TOTAL PROTEIN 7.1 GM/DL (6.4-8.2)
[2017-07-19 06:47] LABS: BAND NEUTROPHILS 1 %; BASOPHILS % (MANUAL) 0 %; EOSINOPHILS % (MANUAL) 0 %; HYPOCHROMASIA SLIGHT; LYMPHOCYTES % (MANUAL) 5 %; MONOCYTES % (MANUAL) 1 %; NEUTROPHILS % (MANUAL) 93 %; POIKILOCYTOSIS MODERATE; POLYCHROMASIA SLIGHT
[2017-07-19 06:48] LABS: ANISOCYTOSIS MODERATE; CRENATED RBC MODERATE; ELLIPT/OVALOCYTES MODERATE; SCHISTOCYTES SLIGHT; TARGET CELLS SLIGHT
[2017-07-19 06:58] LABS: INR 7.5 (0.8-1.4); PROTHROMBIN TIME PATIENT 62.9 SEC (12.2-14.7)
--- NOTE | 2017-07-19 07:28 | Progress Note (SOAP) ---
Subjective Time Seen by Provider: 07:25 Subjective/Events-last exam Patient doing much better today. Patient knows his name and talking and moving extremities. Patient not a candidate for MRI due to pacemaker. Patient's white blood cell count went up to 18,000 Patient's INR went to 7.5. Patient alert today. Patient to be checked by speech therapy today Objective Exam Vital Signs Date Time Temp Pulse Resp B/P (MAP) Pulse Ox O2 Delivery O2 Flow Rate FiO2 07/19/17 06:10 151/75 (100) 07/19/17 04:00 97.8 86 18 165/93 (117) 95 Room Air 07/19/17 01:00 92 07/19/17 00:00 98.1 78 18 188/94 (125) 92 Room Air 07/18/17 20:00 Room Air 07/18/17 19:11 97.1 80 16 92 Room Air 07/18/17 19:00 82 07/18/17 15:54 97.8 61 16 136/63 (87) 93 Room Air 07/18/17 15:08 65 07/18/17 13:40 97.5 68 16 158/68 (98) 95 Room Air 07/18/17 13:22 78 16 129/74 95 07/18/17 08:39 62 20 139/78 93 I & O 07/19/17 07:00 Intake Total 1000 ml Output Total 1400 ml Balance -400 ml Capillary Refill : Less Than 3 Seconds General Appearance: No Apparent Distress, WD/WN HEENT: Normal ENT Inspection, Pharynx Normal Neck: Full Range of Motion, Normal Inspection Respiratory: Lungs Clear, No Accessory Muscle Use, No Respiratory Distress Cardiovascular: Regular Rate, Rhythm, No Murmur Gastrointestinal: non tender, soft Results Lab Laboratory Tests 07/19/17 05:55 Laboratory Tests 07/18/17 08:28: Urine Color YELLOW, Urine Clarity CLEAR, Urine pH 6, Urine Specific [place] 1.010L, Urine Protein 2+H, Urine Glucose (UA) 3+H, Urine Ketones 2+H, Urine Nitrite NEGATIVE, Urine Bilirubin NEGATIVE, Urine Urobilinogen NORMAL, Urine Leukocyte Esterase NEGATIVE, Urine RBC (Auto) 1+H, Urine RBC 0-2, Urine WBC NONE , Urine Crystals NONE, Urine Bacteria NEGATIVE, Urine Casts NONE, Urine Hyaline Casts 2-5H, Urine Mucus NEGATIVE, Urine Culture Indicated NO 3/19/18 17:44: Glucometer 236H 07/19/17 00:03: Glucometer 194H 07/19/17 05:21: Glucometer 191H 07/19/17 05:55: White Blood Count 18.2H, Red Blood Count 4.32L, Hemoglobin 11.3L, Hematocrit 36L , Mean Corpuscular Volume 83, Mean Corpuscular Hemoglobin 26, Mean Corpuscular Hemoglobin Concent 31L, Red Cell Distribution Width 16.7H, Platelet Count 288, Mean Platelet Volume 10.6H, Neutrophils (%) (Auto) 93H, Lymphocytes (%) (Auto) 4L, Monocytes (%) (Auto) 4, Eosinophils (%) (Auto) 0, Basophils (%) (Auto) 0, Neutrophils # (Auto) 16.9H, Lymphocytes # (Auto) 0.7L, Monocytes # (Auto) 0.7, Eosinophils # (Auto) 0.0, Basophils # (Auto) 0.0, Neutrophils % (Manual) 93, Lymphocytes % (Manual) 5, Monocytes % (Manual) 1, Eosinophils % (Manual) 0, Basophils % (Manual) 0, Band Neutrophils 1, Polychromasia SLIGHT, Hypochromasia SLIGHT, Poikilocytosis MODERATE, Anisocytosis MODERATE, Target Cells SLIGHT, Crenated Cell MODERATE, Elliptocytes MODERATE, Schistocytes SLIGHT, Prothrombin Time 62.9*H, INR Comment 7.5*H, Sodium Level 140, Potassium Level 3.7, Chloride Level 114#H, Carbon Dioxide Level 14L, Anion Gap 12, Blood Urea Nitrogen 25H, Creatinine 1.56H, Estimat Glomerular Filtration Rate 43, BUN/Creatinine Ratio 16 , Glucose Level 200H, Calcium Level 9.1, Total Bilirubin 1.3H, Aspartate Amino Transf (AST/SGOT) 86H, Alanine Aminotransferase (ALT/SGPT) 52, Alkaline Phosphatase 103, Total Protein 7.1, Albumin 3.1L Assessment/Plan Assessment/Plan Assess & Plan/Chief Complaint Acute mental status change resolving. Prolonged INR. Bipolar. Leukocytosis. Patient alert today. Clinical Quality Measures Admission Status Admission Dx Acute mental status change. Supratherapeutic INR. Nausea and vomiting. Hyperglycemia. Bipolar. Incontinence. Patient not communicating well. Patient not to take oral medicine for feeding till tomorrow until he is more awake DVT/VTE Risk/Contraindication: Risk Factor Score Per Nursin RFS Level Per Nursing on Admit: 4+=Very High Contraindications-Pharm: Other *list below* EUGENE KENNEDY DO Jul 19, 2017 07:28
[2017-07-19] MEDS: cefTRIAXone INJECTION 1,000 MG in NS (IVPB) 100 ML IV SCH (08:11)
[2017-07-19] MEDS ORDERED: DOCUSATE SODIUM 100 MG (COLACE) CAP PO PRN (13:00)
[2017-07-19] MEDS ORDERED: NITROGLYCERIN 0.4 MG SL TABS BTL 25'S SL PRN (13:00)
[2017-07-19] MEDS ORDERED: POLYETHYLENE GLYCOL 17 GM (MIRALAX) PACK PO PRN (13:00)
--- NOTE | 2017-07-19 13:13 | ST Dysphagia Evaluation ---
Speech Evaluation-General Medical Diagnosis Acute Mental Status Change Onset Date: Jul 18, 2017 Therapy Diagnosis Therapy Diagnosis: Mild Oral Dysphagia Precautions Precautions: Aspiration Precautions/Isolations: Fall Prevention, Standard Precautions Referral Referring Physician: Dr. Jono Hubbard Reason for Referral: Evaluation/Treatment Clinical Bedside Swallowing Evaluation Medical History Pertinent Medical History: CAD, Dementia, GERD Reviewed History: Yes Speech PLF/Current-Dysphagia Prior Level of Function The patient was unable to provide prior level of function information to the clinician due to expressive communication difficulty. Subjective The patient was admitted to [facility] following an acute mental status change. At this time, the patient is NPO. Chest exam on 07/18/2017 revealed no acute abnormalities of the chest. Cognitive Status The patient did not respond to orientation questions poised by the clinician. Oral Motor Skills Dentition: Edentalous (The patient denied having dentures.) Ability to Follow Directions: Poor The patient is NPO pending the results of the swallowing evaluation. Oral Expression Ability: Moderate Impairment Voice Voice Phonatory-Based Quality: Breathy, Tremor, Weak Voice Pitch: Normal Voice Loudness: Moderately Soft/Quiet Face Facial Symmetry: Symmetrical Oral-Facial Assessment Oral-Facial Dentition: Normal Labial Seal Description: Normal Smile: Normal Lingual Protrusion: Abnormal (Reduced lingual protrusion, tremulous behavior noted upon protrusion.) Lingual ROM: Abnormal (Reduced bilateral range of motion noted.) Lingual Strength: Abnormal (Reduced lingual strength noted bilaterally.) Pharynx Velopharyngeal Move.: Normal Volitional Dry Swallow: Yes Dysphagia Evaluation Consistencies Presented: Thin Liquid (Via teaspoon, cup sip, straw drink.), Pureed (Three teaspoons.) Oral Phase: Reduced Oral Transit The patient demonstrated a tongue pumping motion throughout oral trials, as well as, mild difficulty moving puree consistencies posterior in the oral cavity. - No pharyngeal impairments were noted throughout the evaluation. - Thin Liquid (teaspoon, cup sip, straw drink), Puree (three teaspoons): The patient consumed five teaspoons, four cup drinks, and multiple large straw drinks of thin liquid. The patient consumed three teaspoons of puree. While no signs/symptoms of aspiration were demonstrated, the patient reported significant nausea and began retching. While the patient did not expectorate any material, he refused additional bolus trials. The RN was notified of this occurrence. Dietary Recommendations: Pureed Liquid Recommendations: Thin To note, the above recommendations can only be provided following a limited evaluation due to the patient's nausea. This information was shared with the patient's RN. The patient refused additional trials following the onset of nausea. Due to the patient's nausea, supervision during initial upcoming meals is recommended for tolerance. Swallowing Precautions: Small Bites and Sips, Sitting 90 Degrees 30 Post Intake Dysphagia Evaluation Summary The patient demonstrated mild oral dysphagia characterized by reduced lingual coordination and strength. Speech Short Term Goals Short Term Goals Short Term Goals 1. The patient will tolerate trials of the least restrictive diet consistency without signs/symptoms of aspiration. Time Frame-STG: Three Days Speech Halfway Goals Halfway Goals 1. The patient will tolerate a diet of the least restrictive consistency without signs/symptoms of aspiration. Time Frame: One Week Speech-Plan Treatment Plan Speech Therapy Treatment Plan: Continue Plan of Care Continue skilled speech pathology to assess and follow swallowing safety. Treatment Duration: Jul 26, 2017 Frequency: 3 times per week Estimated Hrs Per Day: .25 hour per day Rehab Potential: Guarded Safety Risks/Education Teaching Recipient: Patient Teaching Methods: Discussion Response to Teaching: Unable to Comprehend Education Topics Provided: Results, Recommendations, Plan of Care, Swallowing Strategies Time Speech Therapy Time In: 12:15 Speech Therapy Time Out: 12:35 Total Billed Time: 20 Billed Treatment Time 1 JUAN CHENG Jul 19, 2017 13:13
[2017-07-19] MEDS ORDERED: ARTIFICAL TEARS 0.4 ML UNIT DOSE (REFRESH PLUS) OU PRN (13:15)
[2017-07-19] MEDS ORDERED: SERTRALINE 50 MG (ZOLOFT) TABLET PO SCH (13:37)
[2017-07-19] MEDS: busPIRone 10 MG (BUSPAR) TAB PO SCH ×2 (13:44→20:33)
[2017-07-19] MEDS: NS IV 1000 ML 1,000 ML IV SCH ×2 (14:25→19:00)
--- NOTE | 2017-07-19 14:28 | Physical Therapy Evaluation ---
PT Evaluation-General Medical Diagnosis Admission Date Jul 19, 2017 at 12:23 Medical Diagnosis: Acute Mental Status Change Onset Date: Jul 18, 2017 Therapy Diagnosis Therapy Diagnosis: generalized weakness/debility Height/Weight Height (Feet): 5 Height (Inches): 9.00 Weight (Pounds): 164 Weight (Ounces): 2.0 Precautions Precautions/Isolations: Fall Prevention, Standard Precautions Weight Bear Status Right Lower Extremity: Right Full Weight Bearing Left Lower Extremity: Left Full Weight Bearing Referral Physician: Stevie Reason for Referral: Evaluation/Treatment Medical History Pertinent Medical History: CAD, Dementia, GERD, HTN, Renal Insufficiency Additional Medical History Bipolar Current History EMS secondary to stroke like symptoms,weakness/AMS from NH Reviewed History: Yes Social History Home: [facility] Prior/[facility] Prior Level of Function Functional [place] Measure 0=Not Assessed/NA 4=Minimal Assistance 1=Total Assistance 5=Supervision or Setup 2=Maximal Assistance 6=Modified [place] 3=Moderate Assistance 7=Complete [place] Bed Mobility: 5 Transfers (B,C,W/C) (FIM): 5 Gait: 5 PT Evaluation-Current Subjective Patient agrees to OOB. Pain Numeric Pain Scale: 0-No Pain Location: No Pain Reported Objective Patient Orientation: Person Problem Solving: Fair Attachments: Vallecillo Catheter, IV ROM/Strength ROM Lower Extremities bilateral LE WNL Strength Lower Extremities bilateral LE WNL Integumentary/Posture Integumentary refer to nursing notes Bladder Incontinence: Vallecillo Cath Posture WNL Neuromuscular (Tone, Coordination, Reflexes) noted bilateral UE tremors/decreased coordination due to inactivity Sensory Vision: Functional Hearing: Functional Sensation Right Lower Extremit: Intact Sensation Left Lower Extremity: Intact Transfers Functional [place] Measure 0=Not Assessed/NA 4=Minimal Assistance 1=Total Assistance 5=Supervision or Setup 2=Maximal Assistance 6=Modified [place] 3=Moderate Assistance 7=Complete [place] Transfers (B, C, W/C) (FIM): 4 Scootin Rollin Supine to/from Sit: 4 Sit to/from Stand: 4 Gait Mode of Locomotion: Walk Anticipated Mode of Locomotion: Walk Gait (FIM): 1 Distance (FIM): 1=up to 49 ft Distance: 10' Gait Level of Assist: 4 Gait Persons Needed: 1 Gait Assistive Device: FWW Comments/Gait Description slightly unsteady Balance Sitting Static: Normal Sitting Dynamic: Normal Standing Static: Fair Standing Dynamic: Fair Assessment/Needs 87 y.o. male, will benefit from short term skilled PT to address functional mobility to improve current LOF to safely return to NH at maximum LOF. Rehab Potential: Good PT Prison Goals Engineering Illustrator Goals PT Engineering Illustrator Goals Time Frame: Jul 29, 2017 Transfers (B,C,W/C) (FIM): 5 Gait (FIM): 5 Gait distance (FIM): 3=150 ft Distance: 150' Gait Level of Assist: 5 Gait Assistive Device: FWW PT Plan Problem List Problem List: Activity Tolerance, Safety, Balance, Gait Treatment/Plan Treatment Plan: Continue Plan of Care Treatment Plan: Bed Mobility, Education, Functional Activity Bubba, Functional Strength, Gait, Safety, Therapeutic Exercise Treatment Duration: Jul 29, 2017 Frequency: 6 times per week Estimated Hrs Per Day: .25 hour per day Patient and/or Family Agrees t: Yes Discharge Recommendations Therapy D/C Recommendations: Usp Placement Time/GCodes Time In: 1405 Time Out: 1420 Total Billed Treatment Time: 15 Total Billed Treatment 1 visit [facility] 15 min DEN LINDSAY PT Jul 19, 2017 14:28
[2017-07-19] MEDS: ACETAMINOPHEN 325 MG TABLET/CAPLET (TYLENOL) PO PRN ×3 (14:39→23:45)
--- NOTE | 2017-07-19 15:32 | Occupational Therapy Eval ---
OT Evaluation-General/PLF Medical Diagnosis Admission Date Jul 19, 2017 at 12:23 Medical Diagnosis: Acute Mental Status Change Onset Date: Jul 18, 2017 Therapy Diagnosis Therapy Diagnosis: impaired self care skills Height/Weight Height (Feet): 5 Height (Inches): 9.00 Weight (Pounds): 164 Weight (Ounces): 2.0 Precautions Precautions/Isolations: Fall Prevention, Standard Precautions Safety Interventions: Reorient-PRN Referral Physician: Stevie Medical History Pertinent Medical History: Atrial Fib, CAD, Dementia, GERD, HTN, Renal Insufficiency Additional Medical History pacemaker, bladder surgery, UTI-chronic, bipolar, depression. Reviewed History: Yes Social History Home: [facility] ADL-Prior Level of Function ADL PLOF Comments Pt and daughter state pt is able to complete most ADL tasks with supervision. Pt states he recently fell in the shower and has pain/soreness on right side of body. Pt states he ambulates without assistive device. Drive Self: No OT Current Status Subjective Pt in bed, agrees to therapy with encouragement. Pt reports back pain, but does not rate. Mental Status/Objective Patient Orientation: Person, Confused Attachments: Vallecillo Catheter, IV Current Glasses/Contacts: Yes (reading) Hearing Aids: No Hand Dominance: Right Upper Extremity ROM Decreased shoulder ROM Upper Extremity Coordination Decreased bilaterally secondary to tremors. Daughter states pt has had tremors for several years. Pt states severity of tremors depends on the day and activity. ADL-Treatment ADL-Current Pt supine to sit with moderate assistance and cues for technique. Pt sat EOB with CGA for balance. Pt declined standing at this time secondary to fear of falling. Pt requests to return to supine secondary to fatigue and discomfort. Sit to supine with minimal assistance. Pt required assist to scoot to HOB. Pt resting in bed with needs met and daughter present. Telesitter in room. Functional [place] Measure 0=Not Assessed/NA 4=Minimal Assistance 1=Total Assistance 5=Supervision or Setup 2=Maximal Assistance 6=Modified [place] 3=Moderate Assistance 7=Complete IndependenceIRFPAI Quality Coding Scale 6 Independent with activity with or without an assistive device 5 Patient requires set up or clean up by helper. Patient completes activity by themselves 4 Supervision or touching assist (CGA). [place] provide cues , steadying assist 3 The helper provides less than half the effort to complete the activity 2 The helper provides more than half the effort to complete the activity 1 Dependent. The helper does all the effort to complete an activity 7 Patient refused to complete or attempt activity 9 The patient did not perform the activity before the current illness or injury 88 Not attempted due to Medical conditions or safety concerns Education OT Patient Education: Rehab process Teaching Recipient: Patient Teaching Methods: Discussion Response to Teaching: Reinforcement Needed OT Short Term Goals Short Term Goals 1=Demonstrate adherence to instructed precautions during ADL tasks. 2=Patient will verbalize/demonstrate understanding of assistive devices/ modifications for ADL. 3=Patient will improve strength/tolerance for activity to enable patient to perform ADL's. OT Food Writer Goals Food Writer Goals Time Frame: Aug 02, 2017 Eating (FIM): 5 Grooming(FIM): 5 Upper Body Dressing(FIM): 5 Lower Body Dressing(FIM): 4 Toilet/Commode Transfer(FIM): 5 Additional Goals: 1-Demonstrate ADL Tasks, 2-Verbalize Understanding, 3- ImproveStrength/Bubba 1=Demonstrate adherence to instructed precautions during ADL tasks. 2=Patient will verbalize/demonstrate understanding of assistive devices/ modifications for ADL. 3=Patient will improve strength/tolerance for activity to enable patient to perform ADL's. OT Education/Plan Problem List/Assessment Assessment: Decreased Activ Tolerance, Decreased UE Strength, Dependent Transfers, Impaired Coordination, Impaired Funct Balance, Impaired I ADL's, Impaired Self-Care Skills, Restricted Funct UE ROM Pt to benefit from skilled OT intervention for ADL training, transfers, strengthening, and safety education to increase level of independence and allow safe discharge. Discharge Recommendations Plan/Recommendations: Continue POC Treatment Plan/Plan of Care Treatment,Training & Education: Yes Patient would benefit from OT for education, treatment and training to promote independence in ADL's, mobility, safety and/or upper extremity function for ADL' s. Plan of Care: ADL Retraining, Functional Mobility, UE Funct Exercise/Act Treatment Duration: Aug 02, 2017 Frequency: 5 times per week Estimated Hrs Per Day: .25 hour per day Rehab Potential: Fair Time/GCodes Start Time: 14:52 Stop Time: 15:15 Total Time Billed (hr/min): 23 Billed Treatment Time 1 visit, EVTomas(23minutes) MITCHELL PERES OT Jul 19, 2017 15:32
[2017-07-19] MEDS: CAPTOPRIL 25 MG (CAPOTEN) TAB PO SCH (20:32)
[2017-07-19] MEDS: DONEPEZIL 5 MG (ARICEPT) TAB PO SCH (20:32)
[2017-07-19] MEDS: PROPRANOLOL 20 MG (INDERAL) TABLET PO SCH (20:33)
[2017-07-19] MEDS: MELATONIN 3 MG TABLET PO SCH (20:33)
[2017-07-19] MEDS: RANOLAZINE ER 500 MG TAB (RANEXA) PO SCH (20:36)
[2017-07-19] MEDS ORDERED: ATORVASTATIN 40 MG (LIPITOR) TABLET PO SCH (21:00)
[2017-07-20] VITALS: BP 177/81
[2017-07-20 03:15] VITALS: BP 171/80
[2017-07-20 05:56] LABS: BASOPHILS % (AUTO) 0 % (0-10); EOSINOPHILS % (AUTO) 0 % (0-10); HEMATOCRIT 33 % (40-54); HEMOGLOBIN 10.3 G/DL (13.3-17.7); LYMPHOCYTES # (AUTO) 0.8 X 10^3 (1.0-4.0); LYMPHOCYTES % (AUTO) 4 % (12-44); MEAN CORPUSCULAR HEMOGLOBIN 26 PG (25-34); MEAN CORPUSCULAR HGB CONC 31 G/DL (32-36); MEAN CORPUSCULAR VOLUME 85 FL (80-99); MEAN PLATELET VOLUME 10.6 FL (7.4-10.4); MONOCYTES # (AUTO) 0.3 X 10^3 (0.0-1.0); MONOCYTES % (AUTO) 2 % (0-12); NEUTROPHILS # (AUTO) 16.7 X 10^3 (1.8-7.8); NEUTROPHILS % (AUTO) 94 % (42-75); PLATELET COUNT 263 10^3/uL (130-400); RED BLOOD COUNT 3.91 10^6/uL (4.35-5.85); WHITE BLOOD COUNT 17.8 10^3/uL (4.3-11.0)
[2017-07-20 06:11] LABS: BILIRUBIN,TOTAL 1.4 MG/DL (0.1-1.0); CALCIUM 8.8 MG/DL (8.5-10.1); CREATININE SERUM 1.44 MG/DL (0.60-1.30); POTASSIUM 3.8 MMOL/L (3.6-5.0); TOTAL PROTEIN 6.6 GM/DL (6.4-8.2)
[2017-07-20 06:16] LABS: DIGOXIN 0.93 NG/ML (0.80-2.00)
[2017-07-20 06:24] LABS: INR 5.2 (0.8-1.4); PROTHROMBIN TIME PATIENT 47.5 SEC (12.2-14.7)
[2017-07-20] MEDS: inSUlin (REGULAR) HUMAN 1 UNIT/0.01 ML (CHARGE PER UNIT) SC SCH ×4 (06:27→20:48)
[2017-07-20] MEDS: PANTOPRAZOLE 40 MG (PROTONIX) TAB PO SCH (06:44)
--- NOTE | 2017-07-20 07:38 | Progress Note (SOAP) ---
Subjective Time Seen by Provider: 07:35 Subjective/Events-last exam Patient feeling better and doing better. Patient talking and alert. Patient eating this morning. INR 5.2 coming down. GFR 47 going up. Liver enzymes elevated. White blood cell count 17,800 stabilizing and coming down a little. Still has hypertension but started on his hypertension medicine last night. Acute mental status resolved Objective Exam Vital Signs Date Time Temp Pulse Resp B/P (MAP) Pulse Ox O2 Delivery O2 Flow Rate FiO2 07/20/17 03:15 96.4 75 18 171/80 (110) 94 Room Air 07/20/17 01:00 74 07/20/17 00:00 98.0 67 18 177/81 (113) 92 Room Air 07/19/17 21:00 Room Air 07/19/17 19:08 98.6 89 22 179/84 (115) 94 Room Air 07/19/17 19:00 89 07/19/17 16:01 97.7 94 22 178/77 (110) 96 Room Air 07/19/17 16:00 98.9 83 18 179/80 94 Room Air 07/19/17 13:57 98.2 91 18 178/90 95 07/19/17 13:41 98.3 91 18 189/91 95 Room Air 07/19/17 13:00 98 07/19/17 12:45 98.3 91 18 189/96 95 Room Air 07/19/17 12:00 98.5 94 20 186/80 (115) 95 Room Air 07/19/17 10:40 98.5 90 18 172/99 94 Room Air 07/19/17 10:40 98.5 90 18 172/99 94 Room Air 07/19/17 10:23 98.0 93 18 194/82 95 Room Air 07/19/17 08:00 98.2 91 20 162/68 (99) 94 Room Air I & O 07/20/17 07:00 Intake Total 4325 ml Output Total 1640 ml Balance 2685 ml Capillary Refill : Less Than 3 Seconds General Appearance: No Apparent Distress, WD/WN HEENT: Normal ENT Inspection Neck: Normal Inspection Respiratory: Chest Non Tender, No Accessory Muscle Use, No Respiratory Distress Cardiovascular: Regular Rate, Rhythm, No Murmur Gastrointestinal: non tender, soft Results Lab Laboratory Tests 07/20/17 05:04 Laboratory Tests 07/19/17 13:00: Glucometer 156H 07/19/17 16:08: Glucometer 220H 07/19/17 20:52: Glucometer 150H 07/20/17 05:04: White Blood Count 17.8H, Red Blood Count 3.91L, Hemoglobin 10.3L, Hematocrit 33L , Mean Corpuscular Volume 85, Mean Corpuscular Hemoglobin 26, Mean Corpuscular Hemoglobin Concent 31L, Red Cell Distribution Width 17.0H, Platelet Count 263, Mean Platelet Volume 10.6H, Neutrophils (%) (Auto) 94H, Lymphocytes (%) (Auto) 4L, Monocytes (%) (Auto) 2, Eosinophils (%) (Auto) 0, Basophils (%) (Auto) 0, Neutrophils # (Auto) 16.7H, Lymphocytes # (Auto) 0.8L, Monocytes # (Auto) 0.3, Eosinophils # (Auto) 0.0, Basophils # (Auto) 0.0, Prothrombin Time 47.5*H, INR Comment 5.2*H, Sodium Level 137, Potassium Level 3.8, Chloride Level 111H, Carbon Dioxide Level 17L, Anion Gap 9, Blood Urea Nitrogen 32H, Creatinine 1.44H , Estimat Glomerular Filtration Rate 47, BUN/Creatinine Ratio 22, Glucose Level 127H, Calcium Level 8.8, Total Bilirubin 1.4H, Aspartate Amino Transf (AST/SGOT ) 975H, Alanine Aminotransferase (ALT/SGPT) 535#H, Alkaline Phosphatase 97, Total Protein 6.6, Albumin 3.0L, Digoxin Level 0.93 Assessment/Plan Assessment/Plan Assess & Plan/Chief Complaint Acute mental status change resolving. Prolonged INR. Bipolar. Leukocytosis. Patient alert today.. . 07/20/17 area Acute mental status change. INR starting to come down. Elevated liver enzymes. Hypertension. Bipolar. Leukocytosis coming down a little Clinical Quality Measures Admission Status Admission Dx Acute mental status change. Supratherapeutic INR. Nausea and vomiting. Hyperglycemia. Bipolar. Incontinence. Patient not communicating well. Patient not to take oral medicine for feeding till tomorrow until he is more awake DVT/VTE Risk/Contraindication: Risk Factor Score Per Nursin RFS Level Per Nursing on Admit: 4+=Very High Contraindications-Pharm: Other *list below* EUGENE KENNEDY DO Jul 20, 2017 07:38
[2017-07-20] MEDS ORDERED: CATHETER FLUSH 10 ML SYR IV PRN (07:45)
[2017-07-20 08:00] VITALS: BP 149/79
[2017-07-20] MEDS: ONDANSETRON 4 MG/2 ML (SDV) Z0FRAN IVP PRN (08:22)
--- NOTE | 2017-07-20 09:04 | Speech Therapy Daily Note ---
Speech Daily Progress Note Subjective Date Seen by Provider: Jul 20, 2017 Time Seen by Provider: 08:45 The patient was seated upright in bed, with breakfast tray present, upon entrance. The patient made eye contact and greeted the clinician as she entered the room. The patient appears more alert on this date, however, stated he continues to "not be hungry." Additionally, the patient reported nausea which was reported to the patient's RN. Per RN, the patient was provided Zofran earlier in the day. Objective Thin Liquid (via straw), puree, solid: No signs/symptoms of aspiration were demonstrated with any consistency tested. The patient required a wash of thin liquid to aid clearance of the solid consistency from the oral cavity. The patient's vocal quality remained clear throughout the session. Recommendations: At this time, the speech pathologist recommends an upgrade to a mechanical soft diet with thin liquids, as tolerated. Assessment Assessment Current Status: Fair Progress Treatment Plan Continue Plan of Care Speech Short Term Goals Short Term Goals Short Term Goals 1. The patient will tolerate trials of the least restrictive diet consistency without signs/symptoms of aspiration. Time Frame-STG: Three Days Speech Mcc Goals Dynamometer Tuner Goals 1. The patient will tolerate a diet of the least restrictive consistency without signs/symptoms of aspiration. Time Frame: One Week Speech-Plan Treatment Plan Speech Therapy Treatment Plan: Continue Plan of Care Continue skilled speech pathology to target swallowing safety. Treatment Duration: Jul 26, 2017 Frequency: 3 times per week Estimated Hrs Per Day: .25 hour per day Rehab Potential: Fair Safety Risks/Education Teaching Recipient: Patient Teaching Methods: Discussion Response to Teaching: Verbalize Understanding, Reinforcement Needed Education Topics Provided: Recommendations, Swallowing Strategies Time Speech Therapy Time In: 08:45 Speech Therapy Time Out: 09:00 Total Billed Time: 15 Billed Treatment Time 1, JUAN BOLAND Jul 20, 2017 09:03
[2017-07-20] MEDS: PROPRANOLOL 20 MG (INDERAL) TABLET PO SCH ×2 (10:22→20:48)
[2017-07-20] MEDS: DILTIAZEM 240 MG (CARDIZEM CD) CAP PO SCH (10:23)
[2017-07-20] MEDS: busPIRone 10 MG (BUSPAR) TAB PO SCH ×3 (10:23→20:47)
[2017-07-20] MEDS: CAPTOPRIL 25 MG (CAPOTEN) TAB PO SCH ×2 (10:23→20:48)
[2017-07-20] MEDS: DIGOXIN 0.125 MG (LANOXIN) TAB PO SCH (10:23)
[2017-07-20] MEDS: RANOLAZINE ER 500 MG TAB (RANEXA) PO SCH ×2 (10:23→20:47)
[2017-07-20] MEDS: cefTRIAXone INJECTION 1,000 MG in NS (IVPB) 100 ML IV SCH (10:23)
[2017-07-20] MEDS: LITHIUM CARB SR 450 MG (ESKALITH-CR) TAB PO SCH (10:24)
--- NOTE | 2017-07-20 11:28 | Occupational Ther Daily Note ---
OT Current Status-Daily Note Subjective Pt resting in bed, states he is having "soreness", but denies pain. Mental Status/Objective Functional [place] Measure 0=Not Assessed/NA 4=Minimal Assistance 1=Total Assistance 5=Supervision or Setup 2=Maximal Assistance 6=Modified [place] 3=Moderate Assistance 7=Complete [place] ADL-Treatment Pt is drowsy this morning, but opens eyes with verbal and tactile cues. Attempted to have pt complete grooming tasks with HOB raised. Pt held washcloth in right hand and brought to chin to wash, but did not attempt to wash rest of face. Right UE support was provided and pt partially washed face, but required mod assist to complete task. Pt required max assist to comb hair. Pt requires increased time to follow commands and closes eyes in between tasks. Pt resting in bed with needs met after session. Discussed with RN. Telesitter present. OT Short Term Goals Short Term Goals 1=Demonstrate adherence to instructed precautions during ADL tasks. 2=Patient will verbalize/demonstrate understanding of assistive devices/ modifications for ADL. 3=Patient will improve strength/tolerance for activity to enable patient to perform ADL's. OT Longterm Goals [place]ite Countertop Installer Goals Time Frame: Aug 02, 2017 Eating (FIM): 5 Grooming(FIM): 5 Upper Body Dressing(FIM): 5 Lower Body Dressing(FIM): 4 Toilet/Commode Transfer(FIM): 5 Additional Goals: 1-Demonstrate ADL Tasks, 2-Verbalize Understanding, 3- ImproveStrength/Bubba 1=Demonstrate adherence to instructed precautions during ADL tasks. 2=Patient will verbalize/demonstrate understanding of assistive devices/ modifications for ADL. 3=Patient will improve strength/tolerance for activity to enable patient to perform ADL's. OT Education/Plan Discharge Recommendations Plan/Recommendations: Continue POC Treatment Plan/Plan of Care Patient would benefit from OT for education, treatment and training to promote independence in ADL's, mobility, safety and/or upper extremity function for ADL' s. Plan of Care: ADL Retraining, Functional Mobility, UE Funct Exercise/Act Treatment Duration: Aug 02, 2017 Frequency: 5 times per week Estimated Hrs Per Day: .25 hour per day Rehab Potential: Fair Time/GCodes Start Time: 11:00 Stop Time: 11:10 Total Time Billed (hr/min): 10 Billed Treatment Time 1 visit, ADL(10minutes) MITCHELL PERES OT Jul 20, 2017 11:28
[2017-07-20 12:00] VITALS: BP 137/70
[2017-07-20 16:00] VITALS: BP 132/67
[2017-07-20] MEDS: CATHETER FLUSH 10 ML SYR IV SCH ×2 (16:25→20:49)
[2017-07-20 19:56] VITALS: BP 127/59
[2017-07-20] MEDS: MELATONIN 3 MG TABLET PO SCH (20:47)
[2017-07-20] MEDS: DONEPEZIL 5 MG (ARICEPT) TAB PO SCH (20:47)
[2017-07-21] VITALS (7 sets, daily range): BP systolic 124–157; BP diastolic 58–68
[2017-07-21] MEDS: CATHETER FLUSH 10 ML SYR IV SCH ×3 (06:32→21:39)
[2017-07-21] MEDS: PANTOPRAZOLE 40 MG (PROTONIX) TAB PO SCH (06:32)
[2017-07-21] MEDS: inSUlin (REGULAR) HUMAN 1 UNIT/0.01 ML (CHARGE PER UNIT) SC SCH ×4 (06:32→21:39)
[2017-07-21 06:39] LABS: BASOPHILS % (AUTO) 0 % (0-10); EOSINOPHILS # (AUTO) 0.1 10^3/uL (0.0-0.3); EOSINOPHILS % (AUTO) 1 % (0-10); HEMATOCRIT 30 % (40-54); HEMOGLOBIN 9.6 G/DL (13.3-17.7); LYMPHOCYTES # (AUTO) 0.8 X 10^3 (1.0-4.0); LYMPHOCYTES % (AUTO) 6 % (12-44); MEAN CORPUSCULAR HEMOGLOBIN 26 PG (25-34); MEAN CORPUSCULAR HGB CONC 32 G/DL (32-36); MEAN CORPUSCULAR VOLUME 82 FL (80-99); MEAN PLATELET VOLUME 10.4 FL (7.4-10.4); MONOCYTES # (AUTO) 0.4 X 10^3 (0.0-1.0); MONOCYTES % (AUTO) 3 % (0-12); NEUTROPHILS # (AUTO) 13.4 X 10^3 (1.8-7.8); NEUTROPHILS % (AUTO) 91 % (42-75); PLATELET COUNT 205 10^3/uL (130-400); RED BLOOD COUNT 3.65 10^6/uL (4.35-5.85); RED CELL DISTRIBUTION WIDTH 17.1 % (10.0-14.5); WHITE BLOOD COUNT 14.7 10^3/uL (4.3-11.0)
[2017-07-21 06:57] LABS: INR 4.9 (0.8-1.4)
[2017-07-21 07:13] LABS: PROTHROMBIN TIME PATIENT 45.2 SEC (12.2-14.7)
--- NOTE | 2017-07-21 07:13 | Progress Note (SOAP) ---
Subjective Time Seen by Provider: 07:05 Subjective/Events-last exam Patient had some confusion during the night. Patient better today in morning.. Patient's blood tests are not in yet. To remove Vallecillo. Patient is awake and communicating Objective Exam Vital Signs Date Time Temp Pulse Resp B/P (MAP) Pulse Ox O2 Delivery O2 Flow Rate FiO2 07/21/17 04:00 98.2 62 20 157/68 (97) 90 Room Air 07/21/17 01:00 68 07/21/17 00:00 97.8 76 20 147/66 (93) 91 Room Air 07/20/17 21:00 Room Air 07/20/17 19:56 98.4 69 18 127/59 (81) 92 Room Air 07/20/17 19:00 67 07/20/17 16:00 98.9 90 18 132/67 (88) 93 Room Air 07/20/17 13:00 67 07/20/17 12:00 97.9 78 20 137/70 (92) 94 Room Air 07/20/17 08:00 97.4 70 20 149/79 (102) 90 Room Air 07/20/17 08:00 Room Air I & O 07/21/17 07:00 Intake Total 3320 ml Output Total 2675 ml Balance 645 ml Capillary Refill : Less Than 3 Seconds General Appearance: No Apparent Distress, WD/WN HEENT: Normal ENT Inspection Neck: Full Range of Motion, Normal Inspection Respiratory: Lungs Clear, Normal Breath Sounds, No Accessory Muscle Use, No Respiratory Distress Cardiovascular: Regular Rate, Rhythm, No JVD Gastrointestinal: non tender, soft Results Lab Laboratory Tests 07/21/17 05:17 Laboratory Tests 07/20/17 10:45: Glucometer 189H 07/20/17 12:14: Lab Scanned Report Transfusion Reaction Form 07/20/17 15:58: Glucometer 160H 07/20/17 20:37: Glucometer 173H 07/21/17 05:17: White Blood Count 14.7H, Red Blood Count 3.65L, Hemoglobin 9.6L, Hematocrit 30L , Mean Corpuscular Volume 82, Mean Corpuscular Hemoglobin 26, Mean Corpuscular Hemoglobin Concent 32, Red Cell Distribution Width 17.1H, Platelet Count 205, Mean Platelet Volume 10.4, Neutrophils (%) (Auto) 91H, Lymphocytes (%) (Auto) 6L , Monocytes (%) (Auto) 3, Eosinophils (%) (Auto) 1, Basophils (%) (Auto) 0, Neutrophils # (Auto) 13.4H, Lymphocytes # (Auto) 0.8L, Monocytes # (Auto) 0.4, Eosinophils # (Auto) 0.1, Basophils # (Auto) 0.0 07/21/17 05:20: Glucometer 170H Assessment/Plan Assessment/Plan Assess & Plan/Chief Complaint Acute mental status change resolving. Prolonged INR. Bipolar. Leukocytosis. Patient alert today.. . 07/20/17 area Acute mental status change. INR starting to come down. Elevated liver enzymes. Hypertension. Bipolar. Leukocytosis coming down a little. . 07/21/17. Acute mental status resolved. Blood tests not anemia this morning. Hypertension. Bipolar. Leukocytosis coming down Clinical Quality Measures Admission Status Admission Dx Acute mental status change. Supratherapeutic INR. Nausea and vomiting. Hyperglycemia. Bipolar. Incontinence. Patient not communicating well. Patient not to take oral medicine for feeding till tomorrow until he is more awake DVT/VTE Risk/Contraindication: Risk Factor Score Per Nursin RFS Level Per Nursing on Admit: 4+=Very High Contraindications-Pharm: Other *list below* EUGENE KENNEDY DO Jul 21, 2017 07:13
[2017-07-21 07:14] LABS: ALBUMIN 2.6 GM/DL (3.2-4.5); BILIRUBIN,TOTAL 1.3 MG/DL (0.1-1.0); CALCIUM 8.7 MG/DL (8.5-10.1); CREATININE SERUM 1.28 MG/DL (0.60-1.30); POTASSIUM 4.2 MMOL/L (3.6-5.0); TOTAL PROTEIN 5.7 GM/DL (6.4-8.2)
[2017-07-21] MEDS: RT-ADVAIR HFA 45/21 MCG PER PUFF IH SCH ×2 (07:52→19:24)
[2017-07-21] MEDS: cefTRIAXone INJECTION 1,000 MG in NS (IVPB) 100 ML IV SCH (08:02)
[2017-07-21] MEDS: DILTIAZEM 240 MG (CARDIZEM CD) CAP PO SCH (08:06)
[2017-07-21] MEDS: DIGOXIN 0.125 MG (LANOXIN) TAB PO SCH (08:06)
[2017-07-21] MEDS: LITHIUM CARB SR 450 MG (ESKALITH-CR) TAB PO SCH (08:06)
[2017-07-21] MEDS: RANOLAZINE ER 500 MG TAB (RANEXA) PO SCH ×2 (08:06→21:39)
[2017-07-21] MEDS: CAPTOPRIL 25 MG (CAPOTEN) TAB PO SCH ×2 (08:06→21:39)
[2017-07-21] MEDS: busPIRone 10 MG (BUSPAR) TAB PO SCH ×3 (08:06→21:39)
[2017-07-21] MEDS: PROPRANOLOL 20 MG (INDERAL) TABLET PO SCH ×2 (08:06→21:39)
[2017-07-21 08:17] LABS: AMYLASE 37 U/L (25-125); LIPASE 13 U/L (8-78)
--- NOTE | 2017-07-21 09:34 | Speech Therapy Progress Note ---
Therapy Progress Note Speech pathology attempted follow up with the patient on this date ( approximately 924). The patient was receiving care from the skin care instructor at this time. Speech pathology will reattempt at a later time. JUAN ANTONIO Jul 21, 2017 09:34
--- NOTE | 2017-07-21 13:45 | Occupational Ther Daily Note ---
OT Current Status-Daily Note Subjective Pt dozing in bed. Pt woke easily. Agreed to therapy. Pt c/o pain at side and stated that he thought it was a perforated ulcer. Mental Status/Objective Patient Orientation: Person Functional [place] Measure 0=Not Assessed/NA 4=Minimal Assistance 1=Total Assistance 5=Supervision or Setup 2=Maximal Assistance 6=Modified [place] 3=Moderate Assistance 7=Complete [place] Attachments: [place] Catheter, Oxygen ADL-Treatment Eating (FIM): 3 (Assist to cut food and some to scoop onto spoon. Pt able to loosely hold onto utensils. Decreased appetite and refused quickly. Pt was able to grasp, hold and bring milk or water container to mouth and drink from straw. No spillage.) Grooming (FIM): 3 (After set up, pt able to use oral sponge to cleanse front of mouth then stated he was finished and didn't want to do any more.) Radiology and nrsg came into room. Pt left in there care. All needs met in room. OT Short Term Goals Short Term Goals 1=Demonstrate adherence to instructed precautions during ADL tasks. 2=Patient will verbalize/demonstrate understanding of assistive devices/ modifications for ADL. 3=Patient will improve strength/tolerance for activity to enable patient to perform ADL's. OT Topology Teacher Goals Fpc Goals Time Frame: Aug 02, 2017 Eating (FIM): 5 Grooming(FIM): 5 Upper Body Dressing(FIM): 5 Lower Body Dressing(FIM): 4 Toilet/Commode Transfer(FIM): 5 Additional Goals: 1-Demonstrate ADL Tasks, 2-Verbalize Understanding, 3- ImproveStrength/Bubba 1=Demonstrate adherence to instructed precautions during ADL tasks. 2=Patient will verbalize/demonstrate understanding of assistive devices/ modifications for ADL. 3=Patient will improve strength/tolerance for activity to enable patient to perform ADL's. OT Education/Plan Discharge Recommendations Plan/Recommendations: Continue POC Treatment Plan/Plan of Care Patient would benefit from OT for education, treatment and training to promote independence in ADL's, mobility, safety and/or upper extremity function for ADL' s. Plan of Care: ADL Retraining, Functional Mobility, UE Funct Exercise/Act Treatment Duration: Aug 02, 2017 Frequency: 5 times per week Estimated Hrs Per Day: .25 hour per day Rehab Potential: Fair Time/GCodes Start Time: 13:26 Stop Time: 13:39 Total Time Billed (hr/min): 13 Billed Treatment Time 1 visit-FA 1 (13 min) GEN STRICKLAND Jul 21, 2017 13:45
--- NOTE | 2017-07-21 14:13 | Physical Therapy Daily Note ---
PT Daily Note-Current Subjective No verbalization. Transfers Functional [place] Measure 0=Not Assessed/NA 4=Minimal Assistance 1=Total Assistance 5=Supervision or Setup 2=Maximal Assistance 6=Modified [place] 3=Moderate Assistance 7=Complete IndependenceIRFPAI Quality Coding Scale 6 Independent with activity with or without an assistive device 5 Patient requires set up or clean up by helper. Patient completes activity by themselves 4 Supervision or touching assist (CGA). [place] provide cues , steadying assist 3 The helper provides less than half the effort to complete the activity 2 The helper provides more than half the effort to complete the activity 1 Dependent. The helper does all the effort to complete an activity 7 Patient refused to complete or attempt activity 9 The patient did not perform the activity before the current illness or injury 88 Not attempted due to Medical conditions or safety concerns Weight Bearing Right Lower Extremity: Right Full Weight Bearing Left Lower Extremity: Left Full Weight Bearing Treatments Pt had just returned from DI and was returning to bed. PT to assist. Sit to stand x 1 with max assist with FWW but pt unable to grasp walker or attempt to take steps to transfer to the bed. Sit to stand with assist of 2 and SPT with assist of 2 to bed as well as assist of 2 to transfer to supine. Pt in bed post treatment with needs met. Assessment Current Status: Regressing No communication and did not effectively follow cues for transfer. Pt dependent with transfer. Per nursing, pt has declined in the past few days. PT Snf Goals Inside Tester Goals PT Snf Goals Time Frame: Jul 29, 2017 Transfers (B,C,W/C) (FIM): 5 Gait (FIM): 5 Gait distance (FIM): 3=150 ft Distance: 150' Gait Level of Assist: 5 Gait Assistive Device: FWW PT Plan Problem List Problem List: Activity Tolerance, Functional Strength, Safety, Gait, Transfer, Bed Mobility Treatment/Plan Treatment Plan: Continue Plan of Care Treatment Plan: Bed Mobility, Education, Functional Activity Bubba, Functional Strength, Gait, Safety, Therapeutic Exercise Treatment Duration: Jul 29, 2017 Frequency: 6 times per week Estimated Hrs Per Day: .25 hour per day Patient and/or Family Agrees t: Yes Time/GCodes Time In: 1400 Time Out: 1412 Total Billed Treatment Time: 12 Total Billed Treatment visit FA 12 GEN OCAMPO PT Jul 21, 2017 14:13
--- NOTE | 2017-07-21 14:35 | Diagnostic Imaging Report ---
PROCEDURE: CT abdomen and pelvis without contrast. TECHNIQUE: Multiple contiguous axial images were obtained through the abdomen and pelvis without the use of intravenous contrast. INDICATION: Elevated liver function studies. COMPARISON: Exam compared to 04/30/2016. FINDINGS: The gallbladder is surgically absent. There is no pathological dilatation of the biliary ducts. The pancreas, its duct, and the peripancreatic fat are unremarkable. There are bilateral pleural effusions layering dependently with subjacent dependent lower lobe nonspecific infiltrates and atelectasis. The heart is enlarged, not grossly changed. Nodular enlargement of the spleen posteromedially and inferiorly is suboptimally evaluated owing to the absence of contrast but measures a diameter just about 6 cm, previously 5.5 cm. No evidence for splenic rupture. There is no hydronephrosis. No opaque kidney stone. Left renal cortical cyst in the lower pole posteromedially is unchanged. Nonaneurysmal aortic atherosclerosis is unchanged. There is air within the lumen of the catheterized urinary bladder, presumed from that instrumentation. There is sigmoid diverticulosis but no convincing evidence for diverticulitis. There is no ascites, abscess, hematoma, or other abdominal or pelvic fluid collection. There is diffuse integumentary edema. No bowel obstruction. IMPRESSION: No pathological intrahepatic ductal dilatation post cholecystectomy. Nonfocal unopacified liver. Splenic nodule measures larger. Increased pleural effusions, dependent basilar infiltrates, and atelectasis with stable cardiomegaly. Integumentary edema without ascites or fluid collection. No bowel, biliary, or urinary tract obstruction apparent. Dictated by: Dictated on workstation # [id number]
[2017-07-21] MEDS: MELATONIN 3 MG TABLET PO SCH (21:38)
[2017-07-21] MEDS: DONEPEZIL 5 MG (ARICEPT) TAB PO SCH (21:39)
[2017-07-22 03:27] VITALS: BP 122/56
[2017-07-22 06:31] LABS: HEMOGLOBIN 10.1 G/DL (13.3-17.7); MEAN PLATELET VOLUME 10.4 FL (7.4-10.4); RED BLOOD COUNT 3.77 10^6/uL (4.35-5.85); RED CELL DISTRIBUTION WIDTH 17.1 % (10.0-14.5); WHITE BLOOD COUNT 11.1 10^3/uL (4.3-11.0)
[2017-07-22 06:40] LABS: INR 2.7 (0.8-1.4); PROTHROMBIN TIME PATIENT 28.3 SEC (12.2-14.7)
[2017-07-22] MEDS: PANTOPRAZOLE 40 MG (PROTONIX) TAB PO SCH (06:46)
[2017-07-22] MEDS: CATHETER FLUSH 10 ML SYR IV SCH ×2 (06:46→14:09)
[2017-07-22] MEDS: inSUlin (REGULAR) HUMAN 1 UNIT/0.01 ML (CHARGE PER UNIT) SC SCH ×3 (06:46→17:13)
[2017-07-22 06:55] LABS: ALBUMIN 2.7 GM/DL (3.2-4.5); BILIRUBIN,TOTAL 1.5 MG/DL (0.1-1.0); CREATININE SERUM 1.34 MG/DL (0.60-1.30); POTASSIUM 3.7 MMOL/L (3.6-5.0)
--- NOTE | 2017-07-22 07:44 | Progress Note (SOAP) ---
Subjective Time Seen by Provider: 07:40 Subjective/Events-last exam Patient doing better. Acute mental status change resolved. INR 2.7 good area No nausea and vomiting. Bipolar. Patient conversant. She wanting to go back to group home. Objective Exam Vital Signs Date Time Temp Pulse Resp B/P (MAP) Pulse Ox O2 Delivery O2 Flow Rate FiO2 07/22/17 03:27 97.5 65 18 122/56 (78) 91 Room Air 07/22/17 01:00 60 07/21/17 23:59 96.7 61 20 124/58 (80) 92 Room Air 07/21/17 21:00 Room Air 07/21/17 19:51 95.9 61 18 126/59 (81) 92 Room Air 07/21/17 19:26 90 Room Air 07/21/17 19:00 60 07/21/17 16:00 96.7 58 18 132/65 (87) 91 Room Air 07/21/17 13:00 59 07/21/17 12:00 98.4 60 16 132/60 (84) 95 Room Air 07/21/17 09:00 Room Air 07/21/17 08:00 97.5 65 20 138/63 (88) 93 Room Air 07/21/17 07:53 86 Room Air I & O 07/22/17 07:00 Intake Total 2380 ml Output Total 2100 ml Balance 280 ml Capillary Refill : Less Than 3 Seconds General Appearance: No Apparent Distress, WD/WN HEENT: Normal ENT Inspection Neck: Full Range of Motion, Normal Inspection Respiratory: Chest Non Tender, No Accessory Muscle Use, No Respiratory Distress Cardiovascular: Regular Rate, Rhythm, No Murmur Gastrointestinal: non tender, soft Results Lab Laboratory Tests 07/22/17 05:56 Laboratory Tests 07/21/17 11:31: Glucometer 178H 07/21/17 16:00: Glucometer 185H 07/21/17 20:25: Glucometer 188H 07/22/17 05:56: White Blood Count 11.1H, Red Blood Count 3.77L, Hemoglobin 10.1L, Hematocrit 31L , Mean Corpuscular Volume 82, Mean Corpuscular Hemoglobin 27, Mean Corpuscular Hemoglobin Concent 33, Red Cell Distribution Width 17.1H, Platelet Count 216, Mean Platelet Volume 10.4, Prothrombin Time 28.3H, INR Comment 2.7H, Sodium Level 137, Potassium Level 3.7, Chloride Level 110H, Carbon Dioxide Level 21, Anion Gap 6, Blood Urea Nitrogen 40H, Creatinine 1.34H, Estimat Glomerular Filtration Rate 51, BUN/Creatinine Ratio 30, Glucose Level 156H, Calcium Level 9.0, Total Bilirubin 1.5H, Aspartate Amino Transf (AST/SGOT) 226H, Alanine Aminotransferase (ALT/SGPT) 537#H, Alkaline Phosphatase 96, Total Protein 6.0L, Albumin 2.7L 07/22/17 06:37: Glucometer 140H Assessment/Plan Assessment/Plan Assess & Plan/Chief Complaint Acute mental status change resolving. Prolonged INR. Bipolar. Leukocytosis. Patient alert today.. . 07/20/17 area Acute mental status change. INR starting to come down. Elevated liver enzymes. Hypertension. Bipolar. Leukocytosis coming down a little. . 07/21/17. Acute mental status resolved. Blood tests not anemia this morning. Hypertension. Bipolar. Leukocytosis coming down. . 07/22/17. Mental status change resolved. INR 2.7 good. Hypertension. Bipolar. Leukocytosis better. Clinical Quality Measures Admission Status Admission Dx Acute mental status change. Supratherapeutic INR. Nausea and vomiting. Hyperglycemia. Bipolar. Incontinence. Patient not communicating well. Patient not to take oral medicine for feeding till tomorrow until he is more awake DVT/VTE Risk/Contraindication: Risk Factor Score Per Nursin RFS Level Per Nursing on Admit: 4+=Very High Contraindications-Pharm: Other *list below* EUGENE KENNEDY DO Jul 22, 2017 07:44
[2017-07-22] MEDS ORDERED: CEFD300C3 PO (07:47)
--- NOTE | 2017-07-22 07:49 | Discharge Inst-Skilled Nursing ---
Discharge Inst-Skilled NF Consult/Follow Up/Orders Skilled NF Admit to: [facility] Certification (SNF) I certify that SNF services are required to be given on an inpatient basis because of the above named patient's need for [facility] care on a continuing basis for the conditions(s) for which he/she was receiving inpatient hospital services prior to his/her transfer to the SNF. Half-Way Facility Order: Nursing Services, Field Examiner-Evaluate & Treat, Physical Therapy-Evaluate & Treat Discharge Diet: No Restrictions New & Resume Previous Orders Jono Kennedy Jul 22, 2017 07:48 JONO KENNEDY DO Jul 22, 2017 07:49
[2017-07-22 07:52] VITALS: BP 119/57
[2017-07-22] MEDS: PROPRANOLOL 20 MG (INDERAL) TABLET PO SCH (09:11)
[2017-07-22] MEDS: DIGOXIN 0.125 MG (LANOXIN) TAB PO SCH (09:11)
[2017-07-22] MEDS: CAPTOPRIL 25 MG (CAPOTEN) TAB PO SCH (09:11)
[2017-07-22] MEDS: RANOLAZINE ER 500 MG TAB (RANEXA) PO SCH (09:12)
[2017-07-22] MEDS: busPIRone 10 MG (BUSPAR) TAB PO SCH ×2 (09:12→14:45)
[2017-07-22] MEDS: LITHIUM CARB SR 450 MG (ESKALITH-CR) TAB PO SCH (09:12)
[2017-07-22] MEDS: DILTIAZEM 240 MG (CARDIZEM CD) CAP PO SCH (09:12)
[2017-07-22] MEDS: RT-ADVAIR HFA 45/21 MCG PER PUFF IH SCH (09:14)
--- NOTE | 2017-07-22 09:27 | Speech Therapy Daily Note ---
Speech Daily Progress Note Subjective Date Seen by Provider: Jul 22, 2017 Time Seen by Provider: 08:25 The patient was seated upright in the recliner upon entrance. The patient made eye contact with the clinician, however, appeared somewhat lethargic. The patient displays reduced interaction with the clinician in comparison to prior sessions, more somnolent. Objective The patient was reassessed for swallowing appropriateness due to increased lethargy and reduced alertness. Additionally, the patient discharges to custodial on this date. Thin Liquid (via teaspoon and straw): The patient displayed a consistent throat clear with teaspoons and cup sips of thin liquid. The patient consistently required prompts to initiate a swallow. The clinician is suspecting the patient' s reduced alertness has impacted his swallowing function on this date. [place]-Thick (cup drink): No signs/symptoms of aspiration were demonstrated with multiple drinks of nectar-thick liquid. The patient's vocal quality remained clear. Puree: No signs/symptoms of aspiration were demonstrated with multiple boluses of puree. Assessment Assessment Current Status: Poor Progress Treatment Plan Continue Plan of Care Speech Short Term Goals Short Term Goals Short Term Goals 1. The patient will tolerate trials of the least restrictive diet consistency without signs/symptoms of aspiration. Time Frame-STG: Three Days Speech Fpc Goals Fpc Goals 1. The patient will tolerate a diet of the least restrictive consistency without signs/symptoms of aspiration. Time Frame: One Week Speech-Plan Treatment Plan Speech Therapy Treatment Plan: Continue Plan of Care Continue to assess swallowing safety while the patient is under acute care. Treatment Duration: Jul 26, 2017 Frequency: 3 times per week Estimated Hrs Per Day: .25 hour per day Rehab Potential: Fair Safety Risks/Education Teaching Recipient: Patient Teaching Methods: Discussion Response to Teaching: Unable to Comprehend Education Topics Provided: Results, Recommendations (shared and discussed with RN) Time Speech Therapy Time In: 08:25 Speech Therapy Time Out: 08:45 Total Billed Time: 20 Billed Treatment Time 1CASEY PACOJ[address] ST Jul 22, 2017 09:27
[2017-07-22 12:00] VITALS: BP 92/53
--- NOTE | 2017-07-22 15:05 | Occ Therapy Progress Note ---
Therapy Progress Note Attempted therapy at 1430. Pt sitting in chair with meal tray in front of him. Pt requires increased time to respond to questions. Pt does not want to attempt eating at this time, states the pureed food does not taste good. States he might eat "later." Pt declined other activity at this time. Pt sitting in chair with needs met. 1, visit MITCHELL PERES OT Jul 22, 2017 15:05
--- NOTE | 2017-07-22 15:26 | Physical Therapy Progress Note ---
Therapy Progress Note Visit attempt this date, pt declined at this time 909 am. GEN OCAMPO PT Jul 22, 2017 15:26
[2017-07-22 16:45] VITALS: BP 105/55
--- NOTE | 2017-07-26 08:47 | Discharge Summary ---
Diagnosis/Chief Complaint Date of Admission Jul 19, 2017 at 12:23 Date of Discharge Jul 22, 2017 at 17:05 Discharge Date: Jul 22, 2017 Discharge Time: 08:45 Discharge Diagnosis Altered mental status. Coronary artery disease. Bipolar. Hepatitis. COPD. DO NOT RESUSCITATE. Leukocytosis. Hypertension. Personal history of malignant neoplasm of bladder. Personal history of nicotine dependence. 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 Unspecified atrial fibrillation Reason Hospital Visit Patient is a [facility] of [facility]. I received a call stating that the patient unresponsive and had malignant hypertension. Patient sent out to emergency room. Patient had altered mental status. Patient had nausea and vomiting. Hypoglycemia. History of bipolar. Incontinence. Patient unresponsive in emergency room. Now patient opens his eyes and does say a few words and does move. Discharge Summary Discharge Physical Examination Allergies: Coded Allergies: tetanus immune globulin (Unverified Allergy, Unknown, 04/30/16) Vitals & I&Os Vital Signs Date Time Temp Pulse Resp B/P (MAP) Pulse Ox O2 Delivery O2 Flow Rate FiO2 07/22/17 17:05 07/22/17 16:45 97.2 60 16 90 Room Air Hospital Course Patient in hospital did wake up. Patient does communicate. Patient sent back to [facility] Labs (last 24 hrs) Laboratory Tests 07/18/17 06:35: White Blood Count 10.6, Red Blood Count 4.89, Hemoglobin 12.9L, Hematocrit 39L, Mean Corpuscular Volume 79L, Mean Corpuscular Hemoglobin 26, Mean Corpuscular Hemoglobin Concent 33, Red Cell Distribution Width 16.5H, Platelet Count 295, Mean Platelet Volume 9.6, Neutrophils (%) (Auto) 90H, Lymphocytes (%) (Auto) 7L , Monocytes (%) (Auto) 2, Eosinophils (%) (Auto) 0, Basophils (%) (Auto) 0, Neutrophils # (Auto) 9.6H, Lymphocytes # (Auto) 0.8L, Monocytes # (Auto) 0.2, Eosinophils # (Auto) 0.0, Basophils # (Auto) 0.0, Neutrophils % (Manual) 93, Lymphocytes % (Manual) 6, Monocytes % (Manual) 1, Poikilocytosis SLIGHT, Anisocytosis SLIGHT, Microcytosis SLIGHT, Crenated Cell SLIGHT, Elliptocytes SLIGHT, Prothrombin Time 42.1H, INR Comment 4.5H, Activated Partial Thromboplast Time 80H, D-Dimer 1.14H, Sodium Level 134L, Potassium Level 4.1, Chloride Level 104, Carbon Dioxide Level 19L, Anion Gap 11, Blood Urea Nitrogen 13, Creatinine 1.43H, Estimat Glomerular Filtration Rate 47, BUN/Creatinine Ratio 9, Glucose Level 309H, Calcium Level 9.7, Total Bilirubin 1.1H, Aspartate Amino Transf (AST/SGOT) 25, Alanine Aminotransferase (ALT/SGPT) 15, Alkaline Phosphatase 110, Troponin I < 0.30, Total Protein 9.0H, Albumin 3.9, Digoxin Level 1.09 07/18/17 06:52: Mean Blood Glucose 217H, Hemoglobin A1c 9.2H, [place] Level 0.5 07/18/17 08:28: Urine Color YELLOW, Urine Clarity CLEAR, Urine pH 6, Urine Specific [place] 1.010L, Urine Protein 2+H, Urine Glucose (UA) 3+H, Urine Ketones 2+H, Urine Nitrite NEGATIVE, Urine Bilirubin NEGATIVE, Urine Urobilinogen NORMAL, Urine Leukocyte Esterase NEGATIVE, Urine RBC (Auto) 1+H, Urine RBC 0-2, Urine WBC NONE , Urine Crystals NONE, Urine Bacteria NEGATIVE, Urine Casts NONE, Urine Hyaline Casts 2-5H, Urine Mucus NEGATIVE, Urine Culture Indicated NO 07/18/17 17:44: Glucometer 236H 07/19/17 00:03: Glucometer 194H 07/19/17 05:21: Glucometer 191H 07/19/17 05:55: White Blood Count 18.2H, Red Blood Count 4.32L, Hemoglobin 11.3L, Hematocrit 36L , Mean Corpuscular Volume 83, Mean Corpuscular Hemoglobin 26, Mean Corpuscular Hemoglobin Concent 31L, Red Cell Distribution Width 16.7H, Platelet Count 288, Mean Platelet Volume 10.6H, Neutrophils (%) (Auto) 93H, Lymphocytes (%) (Auto) 4L, Monocytes (%) (Auto) 4, Eosinophils (%) (Auto) 0, Basophils (%) (Auto) 0, Neutrophils # (Auto) 16.9H, Lymphocytes # (Auto) 0.7L, Monocytes # (Auto) 0.7, Eosinophils # (Auto) 0.0, Basophils # (Auto) 0.0, Neutrophils % (Manual) 93, Lymphocytes % (Manual) 5, Monocytes % (Manual) 1, Eosinophils % (Manual) 0, Basophils % (Manual) 0, Band Neutrophils 1, Polychromasia SLIGHT, Hypochromasia SLIGHT, Poikilocytosis MODERATE, Anisocytosis MODERATE, Target Cells SLIGHT, Crenated Cell MODERATE, Elliptocytes MODERATE, Schistocytes SLIGHT, Prothrombin Time 62.9*H, INR Comment 7.5*H, Sodium Level 140, Potassium Level 3.7, Chlor[place] Level 114#H, Carbon Dioxide Level 14L, Anion Gap 12, Blood Urea Nitrogen 25H, Creatinine 1.56H, Estimat Glomerular Filtration Rate 43, BUN/Creatinine Ratio 16 , Glucose Level 200H, Calcium Level 9.1, Total Bilirubin 1.3H, Aspartate Amino Transf (AST/SGOT) 86H, Alanine Aminotransferase (ALT/SGPT) 52, Alkaline Phosphatase 103, Total Protein 7.1, Albumin 3.1L 07/19/17 13:00: Glucometer 156H 07/19/17 16:08: Glucometer 220H 07/19/17 20:52: Glucometer 150H 07/20/17 05:04: White Blood Count 17.8H, Red Blood Count 3.91L, Hemoglobin 10.3L, Hematocrit 33L , Mean Corpuscular Volume 85, Mean Corpuscular Hemoglobin 26, Mean Corpuscular Hemoglobin Concent 31L, Red Cell Distribution Width 17.0H, Platelet Count 263, Mean Platelet Volume 10.6H, Neutrophils (%) (Auto) 94H, Lymphocytes (%) (Auto) 4L, Monocytes (%) (Auto) 2, Eosinophils (%) (Auto) 0, Basophils (%) (Auto) 0, Neutrophils # (Auto) 16.7H, Lymphocytes # (Auto) 0.8L, Monocytes # (Auto) 0.3, Eosinophils # (Auto) 0.0, Basophils # (Auto) 0.0, Prothrombin Time 47.5*H, INR Comment 5.2*H, Sodium Level 137, Potassium Level 3.8, Chloride Level 111H, Carbon Dioxide Level 17L, Anion Gap 9, Blood Urea Nitrogen 32H, Creatinine 1.44H , Estimat Glomerular Filtration Rate 47, BUN/Creatinine Ratio 22, Glucose Level 127H, Calcium Level 8.8, Total Bilirubin 1.4H, Aspartate Amino Transf (AST/SGOT ) 975H, Alanine Aminotransferase (ALT/SGPT) 535#H, Alkaline Phosphatase 97, Total Protein 6.6, Albumin 3.0L, Digoxin Level 0.93, [place] Level 0.3L 07/20/17 10:45: Glucometer 189H 07/20/17 12:14: Lab Scanned Report Transfusion Reaction Form 07/20/17 15:58: Glucometer 160H 07/20/17 20:37: Glucometer 173H 07/21/17 05:17: White Blood Count 14.7H, Red Blood Count 3.65L, Hemoglobin 9.6L, Hematocrit 30L , Mean Corpuscular Volume 82, Mean Corpuscular Hemoglobin 26, Mean Corpuscular Hemoglobin Concent 32, Red Cell Distribution Width 17.1H, Platelet Count 205, Mean Platelet Volume 10.4, Neutrophils (%) (Auto) 91H, Lymphocytes (%) (Auto) 6L , Monocytes (%) (Auto) 3, Eosinophils (%) (Auto) 1, Basophils (%) (Auto) 0, Neutrophils # (Auto) 13.4H, Lymphocytes # (Auto) 0.8L, Monocytes # (Auto) 0.4, Eosinophils # (Auto) 0.1, Basophils # (Auto) 0.0, Prothrombin Time 45.2*H, INR Comment 4.9H, Sodium Level 137, Potassium Level 4.2, Chloride Level 112H, Carbon Dioxide Level 19L, Anion Gap 6, Blood Urea Nitrogen 41H, Creatinine 1.28 , Estimat Glomerular Filtration Rate 53, BUN/Creatinine Ratio 32, Glucose Level 154H, Calcium Level 8.7, Total Bilirubin 1.3H, Aspartate Amino Transf (AST/SGOT ) 1187#H, Alanine Aminotransferase (ALT/SGPT) 859#H, Alkaline Phosphatase 91, Total Protein 5.7L, Albumin 2.6L, Amylase Level 37, Lipase 13 07/21/17 05:20: Glucometer 170H 07/21/17 11:31: Glucometer 178H 07/21/17 16:00: Glucometer 185H 07/21/17 20:25: Glucometer 188H 07/22/17 05:56: White Blood Count 11.1H, Red Blood Count 3.77L, Hemoglobin 10.1L, Hematocrit 31L , Mean Corpuscular Volume 82, Mean Corpuscular Hemoglobin 27, Mean Corpuscular Hemoglobin Concent 33, Red Cell Distribution Width 17.1H, Platelet Count 216, Mean Platelet Volume 10.4, Prothrombin Time 28.3H, INR Comment 2.7H, Sodium Level 137, Potassium Level 3.7, Chloride Level 110H, Carbon Dioxide Level 21, Anion Gap 6, Blood Urea Nitrogen 40H, Creatinine 1.34H, Estimat Glomerular Filtration Rate 51, BUN/Creatinine Ratio 30, Glucose Level 156H, Calcium Level 9.0, Total Bilirubin 1.5H, Aspartate Amino Transf (AST/SGOT) 226H, Alanine Aminotransferase (ALT/SGPT) 537#H, Alkaline Phosphatase 96, Total Protein 6.0L, Albumin 2.7L 07/22/17 06:37: Glucometer 140H 07/22/17 10:57: Glucometer 210H 07/22/17 17:09: Glucometer 225H Laboratory Tests 07/18/17 06:35 07/19/17 05:55 07/20/17 05:04 07/21/17 05:17 07/22/17 05:56 Pending Labs Laboratory Tests 07/18/17 06:35: White Blood Count 10.6, Red Blood Count 4.89, Hemoglobin 12.9, Hematocrit 39, Mean Corpuscular Volume 79, Mean Corpuscular Hemoglobin 26, Mean Corpuscular Hemoglobin Concent 33, Red Cell Distribution Width 16.5, Platelet Count 295, Mean Platelet Volume 9.6, Neutrophils (%) (Auto) 90, Lymphocytes (%) (Auto) 7, Monocytes (%) (Auto) 2, Eosinophils (%) (Auto) 0, Basophils (%) (Auto) 0, Neutrophils # (Auto) 9.6, Lymphocytes # (Auto) 0.8, Monocytes # (Auto) 0.2, Eosinophils # (Auto) 0.0, Basophils # (Auto) 0.0, Neutrophils % (Manual) 93, Lymphocytes % (Manual) 6, Monocytes % (Manual) 1, Poikilocytosis SLIGHT, Anisocytosis SLIGHT, Microcytosis SLIGHT, Crenated Cell SLIGHT, Elliptocytes SLIGHT, Prothrombin Time 42.1, INR Comment 4.5, Activated Partial Thromboplast Time 80, D-Dimer 1.14, Sodium Level 134, Potassium Level 4.1, Chloride Level 104 , Carbon Dioxide Level 19, Anion Gap 11, Blood Urea Nitrogen 13, Creatinine 1.43 , Estimat Glomerular Filtration Rate 47, BUN/Creatinine Ratio 9, Glucose Level 309, Calcium Level 9.7, Total Bilirubin 1.1, Aspartate Amino Transf (AST/SGOT) 25, Alanine Aminotransferase (ALT/SGPT) 15, Alkaline Phosphatase 110, Troponin I < 0.30, Total Protein 9.0, Albumin 3.9, Digoxin Level 1.09 07/18/17 06:52: Mean Blood Glucose 217, Hemoglobin A1c 9.2, [place] Level 0.5 07/18/17 08:28: Urine Color YELLOW, Urine Clarity CLEAR, Urine pH 6, Urine Specific [place] 1.010, Urine Protein 2+, Urine Glucose (UA) 3+, Urine Ketones 2+, Urine Nitrite NEGATIVE, Urine Bilirubin NEGATIVE, Urine Urobilinogen NORMAL, Urine Leukocyte Esterase NEGATIVE, Urine RBC (Auto) 1+, Urine RBC 0-2, Urine WBC NONE, Urine Crystals NONE, Urine Bacteria NEGATIVE, Urine Casts NONE, Urine Hyaline Casts 2- 5, Urine Mucus NEGATIVE, Urine Culture Indicated NO 07/18/17 17:44: Glucometer 236 07/19/17 00:03: Glucometer 194 07/19/17 05:21: Glucometer 191 07/19/17 05:55: White Blood Count 18.2, Red Blood Count 4.32, Hemoglobin 11.3, Hematocrit 36, Mean Corpuscular Volume 83, Mean Corpuscular Hemoglobin 26, Mean Corpuscular Hemoglobin Concent 31, Red Cell Distribution Width 16.7, Platelet Count 288, Mean Platelet Volume 10.6, Neutrophils (%) (Auto) 93, Lymphocytes (%) (Auto) 4, Monocytes (%) (Auto) 4, Eosinophils (%) (Auto) 0, Basophils (%) (Auto) 0, Neutrophils # (Auto) 16.9, Lymphocytes # (Auto) 0.7, Monocytes # (Auto) 0.7, Eosinophils # (Auto) 0.0, Basophils # (Auto) 0.0, Neutrophils % (Manual) 93, Lymphocytes % (Manual) 5, Monocytes % (Manual) 1, Eosinophils % (Manual) 0, Basophils % (Manual) 0, Band Neutrophils 1, Polychromasia SLIGHT, Hypochromasia SLIGHT, Poikilocytosis MODERATE, Anisocytosis MODERATE, Target Cells SLIGHT, Crenated Cell MODERATE, Elliptocytes MODERATE, Schistocytes SLIGHT, Prothrombin Time 62.9, INR Comment 7.5, Sodium Level 140, Potassium Level 3.7, Chlor[place] Level 114, Carbon Dioxide Level 14, Anion Gap 12, Blood Urea Nitrogen 25, Creatinine 1.56, Estimat Glomerular Filtration Rate 43, BUN/Creatinine Ratio 16 , Glucose Level 200, Calcium Level 9.1, Total Bilirubin 1.3, Aspartate Amino Transf (AST/SGOT) 86, Alanine Aminotransferase (ALT/SGPT) 52, Alkaline Phosphatase 103, Total Protein 7.1, Albumin 3.1 07/19/17 13:00: Glucometer 156 07/19/17 16:08: Glucometer 220 07/19/17 20:52: Glucometer 150 07/20/17 05:04: White Blood Count 17.8, Red Blood Count 3.91, Hemoglobin 10.3, Hematocrit 33, Mean Corpuscular Volume 85, Mean Corpuscular Hemoglobin 26, Mean Corpuscular Hemoglobin Concent 31, Red Cell Distribution Width 17.0, Platelet Count 263, Mean Platelet Volume 10.6, Neutrophils (%) (Auto) 94, Lymphocytes (%) (Auto) 4, Monocytes (%) (Auto) 2, Eosinophils (%) (Auto) 0, Basophils (%) (Auto) 0, Neutrophils # (Auto) 16.7, Lymphocytes # (Auto) 0.8, Monocytes # (Auto) 0.3, Eosinophils # (Auto) 0.0, Basophils # (Auto) 0.0, Prothrombin Time 47.5, INR Comment 5.2, Sodium Level 137, Potassium Level 3.8, Chloride Level 111, Carbon Dioxide Level 17, Anion Gap 9, Blood Urea Nitrogen 32, Creatinine 1.44, Estimat Glomerular Filtration Rate 47, BUN/Creatinine Ratio 22, Glucose Level 127, Calcium Level 8.8, Total Bilirubin 1.4, Aspartate Amino Transf (AST/SGOT) 975, Alanine Aminotransferase (ALT/SGPT) 535, Alkaline Phosphatase 97, Total Protein 6.6, Albumin 3.0, Digoxin Level 0.93, [place] Level 0.3 07/20/17 10:45: Glucometer 189 07/20/17 12:14: Lab Scanned Report Transfusion Reaction Form 07/20/17 15:58: Glucometer 160 07/20/17 20:37: Glucometer 173 07/21/17 05:17: White Blood Count 14.7, Red Blood Count 3.65, Hemoglobin 9.6, Hematocrit 30, Mean Corpuscular Volume 82, Mean Corpuscular Hemoglobin 26, Mean Corpuscular Hemoglobin Concent 32, Red Cell Distribution Width 17.1, Platelet Count 205, Mean Platelet Volume 10.4, Neutrophils (%) (Auto) 91, Lymphocytes (%) (Auto) 6, Monocytes (%) (Auto) 3, Eosinophils (%) (Auto) 1, Basophils (%) (Auto) 0, Neutrophils # (Auto) 13.4, Lymphocytes # (Auto) 0.8, Monocytes # (Auto) 0.4, Eosinophils # (Auto) 0.1, Basophils # (Auto) 0.0, Prothrombin Time 45.2, INR Comment 4.9, Sodium Level 137, Potassium Level 4.2, Chloride Level 112, Carbon Dioxide Level 19, Anion Gap 6, Blood Urea Nitrogen 41, Creatinine 1.28, Estimat Glomerular Filtration Rate 53, BUN/Creatinine Ratio 32, Glucose Level 154, Calcium Level 8.7, Total Bilirubin 1.3, Aspartate Amino Transf (AST/SGOT) 1187, Alanine Aminotransferase (ALT/SGPT) 859, Alkaline Phosphatase 91, Total Protein 5.7, Albumin 2.6, Amylase Level 37, Lipase 13 07/21/17 05:20: Glucometer 170 07/21/17 11:31: Glucometer 178 07/21/17 16:00: Glucometer 185 07/21/17 20:25: Glucometer 188 07/22/17 05:56: White Blood Count 11.1, Red Blood Count 3.77, Hemoglobin 10.1, Hematocrit 31, Mean Corpuscular Volume 82, Mean Corpuscular Hemoglobin 27, Mean Corpuscular Hemoglobin Concent 33, Red Cell Distribution Width 17.1, Platelet Count 216, Mean Platelet Volume 10.4, Prothrombin Time 28.3, INR Comment 2.7, Sodium Level 137, Potassium Level 3.7, Chloride Level 110, Carbon Dioxide Level 21, Anion Gap 6, Blood Urea Nitrogen 40, Creatinine 1.34, Estimat Glomerular Filtration Rate 51, BUN/Creatinine Ratio 30, Glucose Level 156, Calcium Level 9.0, Total Bilirubin 1.5, Aspartate Amino Transf (AST/SGOT) 226, Alanine Aminotransferase ( ALT/SGPT) 537, Alkaline Phosphatase 96, Total Protein 6.0, Albumin 2.7 3/23/18 06:37: Glucometer 140 07/22/17 10:57: Glucometer 210 07/22/17 17:09: Glucometer 225 Discharge Home Medications: Active Scripts Active Cefdinir 300 Mg Capsule 300 Mg PO BID 4 Days Reported [place] Carbonate ER ([place] Carbonate) 450 Mg Tab 450 Mg PO DAILY Warfarin Sodium 2 Mg Tablet 2 Mg PO 1800 Captopril 25 Mg Tablet 50 Mg PO BID HOLD AND NOTIFY PCP FOR BP LESS THAN 100/60 OR PULSE LESS THAN 60 Buspirone HCl 10 Mg Tablet 2 Tab PO TID TAKES 2 (10MG) TABLETS Atorvastatin Calcium 40 Mg Tablet 40 Mg PO HS Tylenol (Acetaminophen) 325 Mg Tablet 650 Mg PO Q4H PRN TAKES 2 (325MG) TABLETS Omeprazole 40 Mg Capsule.dr 40 Mg PO DAILY Melatonin 5 Mg Tablet 5 Mg PO HS Zoloft (Sertraline HCl) 25 Mg Tablet 25 Mg PO DAILY Ranexa (Ranolazine) 500 Mg Tab.er.12h 500 Mg PO BID Nitrostat (Nitroglycerin) 0.4 Mg Tab.subl 0.4 Mg SL UD PRN Miralax (Polyethylene Glycol 3350) 17 Gm Powd.pack 17 Gm PO DAILY PRN Colace (Docusate Sodium) 100 Mg Capsule 100 Mg PO Q12H PRN Artificial Tears (Dextran 70/Hypromellose) 1 Each Droperette 1 Drop OU PRN PRN Propranolol HCl 10 Mg Tablet 10 Mg PO BID HOLD IF SYSTOLIC <100 Advair Hfa 45-21 Mcg Inhaler (Fluticasone/Salmeterol) 12 Gm Hfa.aer.ad 2 Puff INH BID Digoxin 125 Mcg Tablet 125 Mcg PO DAILY HOLD DOSE IF <60 AND NOTIFY PCP Donepezil HCl 5 Mg Tablet 5 Mg PO HS Diltiazem ER (Diltiazem HCl) 240 Mg Cap.er.deg 240 Mg PO DAILY HOLD IF SYSTOLIC <100 Instructions to patient/family Please see electronic discharge instructions given to patient. Clinical Quality Measures DVT/VTE Risk/Contraindication: Risk Factor Score Per Nursin RFS Level Per Nursing on Admit: 4+=Very High Contraindications-Pharm: Other *list below* EUGENE KENNEDY DO Jul 26, 2017 08:47
== END 2017-07-22 17:05 | DRG 948 ==
LOC: EDUNIT# 06:53 → ER 06:55 → UNDOADMOB 10:26 → 4TH 10:26 → OBSVTOIN 07-19 12:23 → INTOOBSV 07-19 12:23 → 4TH 07-21 10:00
PROVIDERS: ADMIT Family Medicine; ATTEND Family Medicine
DX: R41.82 Altered mental status, unspecified (principal); R79.1 Abnormal coagulation profile; I10 Essential (primary) hypertension; R11.2 Nausea with vomiting, unspecified; R73.9 Hyperglycemia, unspecified; F31.9 Bipolar disorder, unspecified; D72.829 Elevated white blood cell count, unspecified; I25.10 Atherosclerotic heart disease of native coronary artery without angina pectoris; Z66 Do not resuscitate; J44.9 Chronic obstructive pulmonary disease, unspecified; I48.91 Unspecified atrial fibrillation; F03.90 Unspecified dementia, unspecified severity, without behavioral disturbance, psychotic disturbance, mood disturbance, and anxiety; K21.9 Gastro-esophageal reflux disease without esophagitis; R32 Unspecified urinary incontinence; Z79.01 Long term (current) use of anticoagulants; Z95.0 Presence of cardiac pacemaker; Z87.891 Personal history of nicotine dependence; Z85.51 Personal history of malignant neoplasm of bladder; Z91.81 History of falling
CPT/HCPCS: 36415; 36430; 51702; 70450; 71045; 72125; 72170; 74176; 80053; 80162; 80178; 81000; 82150; 82962; 83036; 83690; 84484; 85007; 85025; 85027; 85379; 85610; 85730; 86900; 86901; 93005; 93041; 94640; 94760; 96374; G0378